=== PATIENT | female | born 1970 | race Caucasian/White ===

== ENCOUNTER 2016-12-03 19:08 | Emergency (ER) | payer SELFPAY ==
--- NOTE | 2016-12-03 20:25 | NUR ---
PATIENT LEFT WITHOUT BEING SEEN BY DR. Molina. NO FURTHER CARE PROVIDED FOR PATIENT. Called pt and no answer. Checked bathroom and surrounding ER areas outside and no sign of her.
== END 2016-12-03 20:25 | disposition left against medical advice (07) ==
LOC: MED 19:08
DX: M79.602 Pain in left arm (principal); Z53.21 Procedure and treatment not carried out due to patient leaving prior to being seen by health care provider

== ENCOUNTER 2018-10-27 00:32 | Emergency (ER) | payer BC, MEDICAID ==
[~2018-10-27] VITALS: Ht 162.6 cm; Wt 102.2 kg
[2018-10-27 00:37] VITALS: BP 149/95
--- NOTE | 2018-10-27 00:50 | NUR ---
Patient being evaluated by physician at bedside.
--- NOTE | 2018-10-27 00:51 | NUR ---
PT PRESENTS TO ED WITH C/O RLQ PAIN X 2 DAYS WITH N/V. ABD IS SOFT, NON TENDER. BOWEL SOUNDS HEARD TO ALL QUADRANTS. NO S/S OF DISTRESS AT THIS TIME. PT PLACED INTO BED, PENDING MD SHAH. PMH--ANXIETY, KIDNEY TRANSPLANT RX--NORCO, ATIVAN, "ANTI ANXIETY MEDS"
[2018-10-27] MEDS ORDERED: NACL 0.9% 1,000 ML IV SCH (00:54)
[2018-10-27] MEDS ORDERED: FAMOTIDINE 20 MG/2 ML VIAL IVP ONE (00:55)
[2018-10-27] MEDS ORDERED: MORPHINE SULFATE 4 MG/ML SYR IVP ONE (00:55)
[2018-10-27] MEDS ORDERED: ONDANSETRON 4 MG/2 ML VIAL IVP ONE (00:55)
[2018-10-27 01:26] LABS: BASOPHILS % (AUTO) 0.5 % (0.0-2.0); EOSINOPHILS % (AUTO) 0.5 % (0.0-4.0); HEMATOCRIT 39.8 % (36-48); HEMOGLOBIN 12.8 g/dL (12.0-16.0); LYMPHOCYTES # (AUTO) 1.2 K/uL (2.5-16.5); LYMPHOCYTES % (AUTO) 12.4 % (20.5-51.1); MEAN CORPUSCULAR HEMOGLOBIN 29 pg (27-31); MEAN CORPUSCULAR HGB CONC 32 g/dL (33-37); MEAN CORPUSCULAR VOLUME 88.8 fL (80-94); MONOCYTES # (AUTO) 0.8 K/uL (0.8-1.0); MONOCYTES % (AUTO) 8.8 % (1.7-9.3); NEUTROPHILS # (AUTO) 7.2 K/uL (1.8-7.7); NEUTROPHILS % (AUTO) 77.8 % (42.2-75.2); PLATELET COUNT (AUTO) 228 K/uL (140-450); RED BLOOD CELL COUNT(AUTO) 4.48 MIL/uL (4.20-5.40); RED CELL DISTRIBUTION WIDTH 14.2 % (11.6-13.7); WHITE BLOOD COUNT (AUTO) 9.3 K/uL (4.8-10.8)
[2018-10-27 01:31] LABS: APPEARANCE,URINE CLEAR (CLEAR); BILIRUBIN,URINE NEGATIVE (NEGATIVE); BLOOD, URINE NEGATIVE (NEGATIVE); COLOR,URINE YELLOW (YELLOW); LEUKOCYTE ESTERASE ,URINE NEGATIVE (NEGATIVE); NITRITE, URINE NEGATIVE (NEGATIVE); UGLUCOSE NEGATIVE (NEGATIVE)
[2018-10-27 01:39] LABS: ANION GAP 14.1 (8-16); CARBON DIOXIDE 24.4 mmol/L (21-32); CREATININE 0.9 mg/dL (0.6-1.3); POTASSIUM 4.5 mmol/L (3.5-5.1)
[2018-10-27 01:45] LABS: ALBUMIN 3.5 g/dL (3.4-5.0); TOTAL BILIRUBIN 0.3 mg/dL (0.0-1.0)
--- NOTE | 2018-10-27 02:31 | NUR ---
Patient discharged with v/s stable. Written and verbal after care instructions given and explained. Patient alert, oriented and verbalized understanding of instructions. Ambulatory with steady gait. All questions addressed prior to discharge. ID band removed. Patient advised to follow up with PMD. Rx of PEPCIP, ZOFRAN, BENTYL,FLAGYL,CIPRO,LOMOTIL given. Patient educated on indication of medication including possible reaction and side effects. Opportunity to ask questions provided and answered.
[2018-10-27 02:32] VITALS: BP 141/88
== END 2018-10-27 02:32 | disposition home or self-care (01) ==
LOC: MED 00:32
DX: R10.33 Periumbilical pain (principal); R11.2 Nausea with vomiting, unspecified; R19.7 Diarrhea, unspecified; I10 Essential (primary) hypertension; Z90.49 Acquired absence of other specified parts of digestive tract; Z90.710 Acquired absence of both cervix and uterus
CPT/HCPCS: 36415; 74176; 80053; 81003; 81025; 83690; 84703; 85025; 96361; 96374; 96375; 99284; J2270; J2405; J3490; J7030

== ENCOUNTER 2019-02-17 02:23 | Inpatient (IN) | payer BC, MEDICAID ==
[~2019-02-17] VITALS: Ht 162.6 cm; Wt 103.4 kg
[~2019-02-17 02:23] MED LIST: CEL250 PO; PRO.5 PO
[2019-02-17 02:34] VITALS: BP 121/89
[2019-02-17] MEDS ORDERED: OMEP20TC12 PO (02:38)
[2019-02-17] MEDS ORDERED: PRED5TAB7 PO (02:38)
[2019-02-17] MEDS ORDERED: HYDR-5092 PO (02:41)
--- NOTE | 2019-02-17 02:43 | NUR ---
TO ER BED 7
--- NOTE | 2019-02-17 02:45 | NUR ---
PT BIB SELF C/O ABD PAIN X 1 WEEK. PT STATES PAIN IS PROGRESSIVELY GETTING WORSE. PT STATES SHE HAS ACID REFLUX. SHARP 8/10 PAIN, TO UPPER QUAD, +TENDERNESS. PT STATES ENDOSCOPY DONE ON THURSDAY 02/15. BOWEL SOUND ACTIVE X4 QUAD. PT ACTING APPROPRIATLY. SKIN WARM, DRY AND INTACT. PT PLACED IN GOWN, IN BED; BED IN LOWER LOCKED POSITION. ER MD AWARE OF PT STATUS. WILL CONTINUE TO MONITOR. MED HX: KIDNEY TRANSPLANT MAY 2017/GASTRIC UPSET/ANXIETY
[2019-02-17] MEDS ORDERED: DICYCLOMINE HCL LIQUID 20 MG, ALUMINUM HYD/MAG/SIMETHICONE 30 ML, LIDOCAINE VISCOUS 2% ... PO ONE ×3 (03:20)
[2019-02-17] MEDS ORDERED: KETOROLAC 30 MG/ML VIAL IM ONE (04:05)
--- NOTE | 2019-02-17 04:05 | NUR ---
PT STATES 8/10 ABD PAIN AT THIS TIME, ER MD MADE AWARE. WILL FOLLOW UP WITH ORDERS.
[2019-02-17] MEDS ORDERED: KETOROLAC 60 MG/2 ML VIAL IM ONE (04:21)
--- NOTE | 2019-02-17 04:30 | NUR ---
PT TO CT VIA WHEELCHAIR BY TECH. GRISELDA
--- NOTE | 2019-02-17 05:21 | NUR ---
EKG PERFORMED AT BEDSIDE. PT COVERED IN GOWN DURING PROCEDURE
[2019-02-17] MEDS ORDERED: MORPHINE SULFATE 4 MG/ML SYR IM ONE (05:50)
[2019-02-17] MEDS ORDERED: LORazepam 2 MG/ML VIAL IVP ONE (06:00)
--- NOTE | 2019-02-17 06:00 | NUR ---
PT STATES PAIN HAS INCREASED, STATES 10/10 UPPER MEDIAL PAIN AT THIS TIME. ER MD AT BEDSIDE. WILL FOLLOW UP W/ MD ORDERS.
--- NOTE | 2019-02-17 06:05 | NUR ---
IV START: L HAND 24G, FLUSHED WELL W/O RESISTANCE. NO REDNESS OR SWELLING NOTED, TRANSPARENT DRESSING APPLIED. PT TOLERATED WELL.
--- NOTE | 2019-02-17 06:30 | NUR ---
PT AMBULATED W/ STEADY GATE AT THIS TIME.
--- NOTE | 2019-02-17 06:34 | NUR ---
CHECKED ON PT IN BR, PT STATES SHE IS OK AND DOES NEED ASSISTANCE AT THIS TIME.
--- NOTE | 2019-02-17 06:38 | NUR ---
PT BACK IN BED, SAFETY PRECAUTIONS IN PLACE. PT PLACED ON BUSINESS DEVELOPMENT DIRECTOR.
[2019-02-17] MEDS ORDERED: ACETAMINOPHEN 325 MG TAB PO PRN (07:00)
[2019-02-17] MEDS ORDERED: LORA-476 PO (07:03)
[2019-02-17] MEDS ORDERED: AMLO5TAB PO (07:03)
--- NOTE | 2019-02-17 07:15 | NUR ---
Pt report given to RICARDO Read, VSS, patient acting appropriatly. Transfer of care at this time.
--- NOTE | 2019-02-17 07:20 | NUR ---
Patient will be admitted to care of Dr. Fritz. Admited to Med surg unit. Pt. transferred to the room 126B on stable condition. Belongings list completed. Belongings with pt. Report to RN Flako.
[2019-02-17 07:30] VITALS: BP 106/69
--- NOTE | 2019-02-17 07:30 | NUR ---
Admitted from ED , with chief complaint of ABDOMINAL PAIN X 2 WEEKS. PT AAOX4, NO SOB NOTED. NO C/O PAIN AT THIS TIME. IV TO LT HAND PATENT AND INTACT. CHEST CLEAR. ABDOMEN SOFT, BOWEL SOUNDS PRESENT. NO EDEMA NOTED, INSTRUCTED PT TO CALL FOR ASSISTANCE, CALL LIGHT WITHIN REACH, PT VERBALIZED UNDERSTANDING. PT IS a 48 y/o ,Female, Cooperative, oriented to call light, bed, phone,television, bathroom, smoking policy,visiting hours, procedures, ID bracelet on. Belongings list checked.
[2019-02-17 07:33] LABS: PROTHROMBIN TIME 9.6 secs (10.8-13.4)
[2019-02-17 07:47] LABS: CHOL/HDL RATIO 2.5 (1-4.5); FREE T4 (FREE THYROXINE) 0.93 ng/dL (0.76-1.46); MAGNESIUM 1.5 mg/dL (1.8-2.4); PHOSPHORUS 3.6 mg/dL (2.5-4.9); THYROID STIMULATING HORMONE 5.6 uIU/mL (0.34-3.74)
--- NOTE | 2019-02-17 08:00 | NUR ---
MRSA NARES SWABS AND URINE SPECIMEN COLLECTED AND SENT TO LAB ORDERED.
[2019-02-17 08:11] LABS: BARBITURATE, URINE NEG. ng/ml (NEG <=200); BENZODIAZEPINE, URINE POS. ng/mL (NEG <=200); CANNABINOID, URINE NEG. ng/mL (NEG <=50); COCAINE, URINE NEG. ng/mL (NEG <=300); OPIATE, URINE POS. ng/mL (NEG <=2000); PHENCYCLIDINE SCREEN,URINE NEG. ng/mL (NEG <=25)
[2019-02-17 08:30] LABS: BASOPHILS % (AUTO) 0.1 % (0.0-2.0); EOSINOPHILS # (AUTO) 0.1 K/uL (0-0.4); EOSINOPHILS % (AUTO) 1.2 % (0.0-4.0); HEMATOCRIT 37.8 % (36-48); HEMOGLOBIN 12.3 g/dL (12.0-16.0); LYMPHOCYTES # (AUTO) 1.3 K/uL (2.5-16.5); LYMPHOCYTES % (AUTO) 16.7 % (20.5-51.1); MEAN CORPUSCULAR HEMOGLOBIN 30 pg (27-31); MEAN CORPUSCULAR HGB CONC 33 g/dL (33-37); MEAN CORPUSCULAR VOLUME 90.9 fL (80-94); MONOCYTES # (AUTO) 0.8 K/uL (0.8-1.0); MONOCYTES % (AUTO) 10.8 % (1.7-9.3); NEUTROPHILS # (AUTO) 5.4 K/uL (1.8-7.7); NEUTROPHILS % (AUTO) 71.2 % (42.2-75.2); PLATELET COUNT (AUTO) 220 K/uL (140-450); RED BLOOD CELL COUNT(AUTO) 4.16 MIL/uL (4.20-5.40); RED CELL DISTRIBUTION WIDTH 14.9 % (11.6-13.7); WHITE BLOOD COUNT (AUTO) 7.5 K/uL (4.8-10.8)
[2019-02-17] MEDS: ONDANSETRON 4 MG/2 ML VIAL IVP PRN (08:32)
[2019-02-17] MEDS ORDERED: DICYCLOMINE HCL LIQUID 10 MG/5 ML UDC PO SCH (09:00)
[2019-02-17] MEDS: DOCUSATE SODIUM 100 MG GELCAP PO SCH ×2 (09:00→20:53)
[2019-02-17] MEDS: amLODIPine 5 MG TAB PO SCH (09:00)
[2019-02-17] MEDS: MYCOPHENOLATE 250 MG CAP PO SCH ×2 (09:00→20:50)
[2019-02-17] MEDS ORDERED: LIDOCAINE VISCOUS 2% 20 ML UDC PO SCH (09:00)
[2019-02-17] MEDS ORDERED: ALUMINUM HYD/MAG/SIMETHICONE 30 ML UDC PO SCH (09:00)
[2019-02-17 09:09] LABS: ANION GAP 15.7 (8-16); CARBON DIOXIDE 21.7 mmol/L (21-32); CREATININE 0.8 mg/dL (0.6-1.3); POTASSIUM 3.4 mmol/L (3.5-5.1); TOTAL BILIRUBIN 0.2 mg/dL (0.0-1.0)
[2019-02-17] MEDS: predniSONE 5 MG TAB PO SCH (09:09)
[2019-02-17 09:10] LABS: ALBUMIN 3.3 g/dL (3.4-5.0)
[2019-02-17] MEDS: LORazepam 1 MG TAB PO PRN ×3 (09:10→20:50)
[2019-02-17] MEDS ORDERED: TACROLIMUS 0.5 MG CAP PO SCH ×2 (10:00)
[2019-02-17] MEDS: MORPHINE SULFATE 2 MG/ML SYR IVP PRN ×2 (10:02→16:54)
--- NOTE | 2019-02-17 10:08 | NUR ---
CELLCEPT AND PROGRAF PO NOT GIVEN, PT STATED HER DAUGHTER BROUGHT HER DOSE THIS MORNING AND SHE ALRAEDY TOOK IT. INSTRUCTED PT NOT TAKE HER OWN STOCK OF HOME MEDS WHILE SHE IS IN THE HOSPITAL WITHOUT ADVISING HER NURSE, THE NURSE WILL BE THE ONE TO ADMINISTER TO PT. PT VERBALIZED UNDERSTANDING.
--- NOTE | 2019-02-17 10:20 | NUR ---
SPOKE WITH PT'S DAUGHTER REGARDING PT'S HOME MEDS, STATED SHE WILL ALL THE HOME MEDS HOME, VERBALIZED UNDERSTANDING.
--- NOTE | 2019-02-17 11:00 | NUR ---
PT SEEN BY DR. SOSA FOR DR. PANTOJA.
[2019-02-17] MEDS: DEXT 5% /NACL 0.9% 1,000 ML IV SCH ×2 (12:52→21:55)
[2019-02-17] MEDS ORDERED: MAG SULF 2000 MG/WATER PREMIX 50 ML IV SCH (13:00)
--- NOTE | 2019-02-17 13:18 | NUR ---
PT SIGNED FOR DISCLOSURE OF MEDICAL RECORDS. SPOKE WITH SHRUTHI FROM DR. [facility] STATED THAT THEY DON'T HAVE A FAX MACHINE BUT THE REQUESTING DOCTOR CAN EMAIL THEM AT [email or web address]. WILL NOTIFY DR. FERNANDEZ'S RESIDENT IN CHARGE OF PT.
--- NOTE | 2019-02-17 13:31 | NUR ---
PATIENT HAS BEEN SCREENED AND CATEGORIZED MODERATE NUTRITION RISK. PATIENT WILL BE SEEN WITHIN 3-5 DAYS OF ADMISSION. 02/19/19LOLI [address]
[2019-02-17] MEDS ORDERED: POTASSIUM CHLORIDE 40 MEQ, LIDOCAINE MPF 1% - 5 mL VIAL 25 MG in NACL 0.9% 250 ML IV SCH (15:00)
--- NOTE | 2019-02-17 15:30 | NUR ---
PT RESTING. NO SOB NOTED. NO SIGNS OF PAIN.
[2019-02-17] MEDS ORDERED: ZOLPIDEM 5 MG TAB PO PRN (15:50)
[2019-02-17 16:00] VITALS: BP 132/84
[2019-02-17] MEDS ORDERED: PANTOPRAZOLE 40 MG INJ VIAL IVP SCH (16:00)
[2019-02-17] MEDS ORDERED: METOCLOPRAMIDE 10 MG/2 ML INJ VIAL IVP SCH (16:15)
--- NOTE | 2019-02-17 18:05 | NUR ---
PT STARTING ON FULL LIQUIDS, NO N&V NOTED. WILL CONTINUE TO MONITOR.
--- NOTE | 2019-02-17 18:31 | NUR ---
PT SEEN BY DR. Janent MONTGOMERY WITH NEW ORDERS.
--- NOTE | 2019-02-17 19:10 | NUR ---
PT AWAKE, TALKING TO AT THE BEDSIDE. NO SOB NOTED. NO C/O PAIN AT THIS TIME. ENDORSED TO NEXT SHIFT NURSE FOR CONTINUITY OF CARE.
--- NOTE | 2019-02-17 19:15 | NUR ---
RECEIVED PT ON BED, AAOX4, DENIES ANY PAIN BUT COMPLAINING OF ITCHINESS TO ARMS, SHOULDERS AND BACK, NO RASHES OR REDNESS NOTED, WILL PAGED RESIDENT ON DUTY, VITAL SIGNS STABLE, K-RIDER IVPB INFUSING WELL, TOLERATING FULL LIQUID DIET, PLAN OF CARE DISCUSSED, SAFETY MEASURES IN PLACE, CALL LIGHT WITHIN REACH.
[2019-02-17] MEDS: HYOSCYAMINE 0.125 MG TAB PO SCH (19:47)
[2019-02-17] MEDS: hydrOXYzine HCL 25 MG TAB PO PRN (19:47)
--- NOTE | 2019-02-17 19:50 | NUR ---
MEDICATED PRN FOR ITCHINESS WITH ATARAX PO, INSTRUCTED PT TO COLLECT LOOSE STOOL FOR C-DIFF, CONTAINER IN THE TOILET, VERBALIZED UNDERSTANDING, ALL NEEDS ATTENDED.
[2019-02-17] MEDS: SUCRALFATE 1 GM TAB PO SCH (20:49)
[2019-02-17] MEDS: AMITRIPTYLINE 25 MG TAB PO SCH (20:50)
--- NOTE | 2019-02-17 20:50 | NUR ---
DUE PO MEDS ADMINISTERED, REFUSED DUE COLACE, RISK AND BENEFITS EXPLAINED BUT PT STILL REFUSING WELL, FOR DAYO GROSS, MONITORED CLOSELY.
--- NOTE | 2019-02-17 22:20 | NUR ---
ROUNDS MADE, SEEN PT SLEEPING, NO SIGNS OF DISTRESS, IVF INFUSING WELL, MONITORED CLOSELY.
[2019-02-18 00:20] VITALS: BP 111/72
--- NOTE | 2019-02-18 00:20 | NUR ---
PT SLEEPING, EASILY AROUSABLE, VITAL SIGNS STABLE, IVF INFUSING WELL, PT WENT BACK TO SLEEP, CONTINUE TO MONITOR CLOSELY.
[2019-02-18] MEDS: MORPHINE SULFATE 2 MG/ML SYR IVP PRN ×2 (03:26→09:10)
[2019-02-18] MEDS: HYOSCYAMINE 0.125 MG TAB PO SCH ×7 (03:26→23:41)
--- NOTE | 2019-02-18 03:30 | NUR ---
PT COMPLAINING OF PAIN, BP-114/66, HR-64, MEDICATED WITH MORPHINE IVP AND DUE LEVSIN PO ADMINISTERED, MONITORED CLOSELY.
[2019-02-18] MEDS: DEXT 5% /NACL 0.9% 1,000 ML IV SCH (04:31)
--- NOTE | 2019-02-18 05:45 | NUR ---
PT SLEEPING, NO SIGNS OF PAIN, IVF INFUSING WELL, MONITORED CLOSELY.
[2019-02-18] MEDS ORDERED: PANTOPRAZOLE 40 MG TABEC PO SCH (06:30)
[2019-02-18 06:47] LABS: BASOPHILS % (AUTO) 0.3 % (0.0-2.0); EOSINOPHILS # (AUTO) 0.1 K/uL (0-0.4); EOSINOPHILS % (AUTO) 1.3 % (0.0-4.0); HEMATOCRIT 37.2 % (36-48); HEMOGLOBIN 12.2 g/dL (12.0-16.0); LYMPHOCYTES % (AUTO) 14.1 % (20.5-51.1); MEAN CORPUSCULAR HEMOGLOBIN 30 pg (27-31); MEAN CORPUSCULAR HGB CONC 33 g/dL (33-37); MEAN CORPUSCULAR VOLUME 91.1 fL (80-94); MONOCYTES # (AUTO) 0.6 K/uL (0.8-1.0); MONOCYTES % (AUTO) 9.2 % (1.7-9.3); NEUTROPHILS # (AUTO) 5.3 K/uL (1.8-7.7); NEUTROPHILS % (AUTO) 75.1 % (42.2-75.2); PLATELET COUNT (AUTO) 218 K/uL (140-450); RED BLOOD CELL COUNT(AUTO) 4.09 MIL/uL (4.20-5.40); RED CELL DISTRIBUTION WIDTH 15.1 % (11.6-13.7)
--- NOTE | 2019-02-18 07:15 | NUR ---
PT SLEEPING, NO SIGNS OF DISTRESS, REPORT GIVEN TO RN PHOENIX FOR CONTINUITY OF CARE.
[2019-02-18 07:16] LABS: CARBON DIOXIDE 26.1 mmol/L (21-32); CREATININE 0.7 mg/dL (0.6-1.3); POTASSIUM 4.1 mmol/L (3.5-5.1)
--- NOTE | 2019-02-18 07:30 | NUR ---
RECEIVED PT AAOX4. NO SOB NOTED. NO C/O PAIN AT THIS TIME. IV TO RT AND LT HAND PATENT AND INTACT. CHEST, DIMINISHED AIR ENTRY TO THE BASES. ABDOMEN SOFT, BOWEL SOUNDS PRESENT. NO EDEMA NOTED. INSTRUCTED PT TO CALL FOR ASSISTANCE, CALL LIGHT WITHIN REACH, VERBALIZED UNDERSTANDING.
[2019-02-18 07:35] LABS: MAGNESIUM 1.8 mg/dL (1.8-2.4); PHOSPHORUS 3.2 mg/dL (2.5-4.9)
[2019-02-18 07:55] VITALS: BP 104/67
[2019-02-18] MEDS: amLODIPine 5 MG TAB PO SCH (09:00)
[2019-02-18] MEDS: ONDANSETRON 4 MG/2 ML VIAL IVP PRN (09:04)
[2019-02-18] MEDS: PANTOPRAZOLE 40 MG INJ VIAL IVP SCH (09:06)
[2019-02-18] MEDS: predniSONE 5 MG TAB PO SCH (09:12)
[2019-02-18] MEDS: LORazepam 1 MG TAB PO PRN ×3 (09:12→20:17)
[2019-02-18] MEDS: SUCRALFATE 1 GM TAB PO SCH ×2 (09:13→20:16)
[2019-02-18] MEDS: DOCUSATE SODIUM 100 MG GELCAP PO SCH ×2 (09:13→20:16)
[2019-02-18] MEDS: MYCOPHENOLATE 250 MG CAP PO SCH ×2 (09:13→20:16)
[2019-02-18] MEDS: TACROLIMUS 0.5 MG CAP PO SCH (09:13)
[2019-02-18] MEDS: hydrOXYzine HCL 25 MG TAB PO PRN ×2 (09:24→21:38)
--- NOTE | 2019-02-18 10:10 | NUR ---
PT AWAKE, ON THE PHONE. NO SOB NOTED. NO COMPLAINTS MADE.
[2019-02-18] MEDS ORDERED: MAGNESIUM HYDROXIDE 2400 MG/30 ML UDC PO SCH (12:01)
--- NOTE | 2019-02-18 12:30 | NUR ---
PT TOLERATED FULL LIQUIDS FOR BREAKFAST AND LUNCH. NO N&V NOTED.
[2019-02-18] MEDS: HYDROcodone/APAP 7.5/325 MG 1 TAB PO PRN ×2 (14:15→20:06)
--- NOTE | 2019-02-18 15:05 | NUR ---
PT RESTING. NO SOB NOTED. NO COMPLAINTS MADE.
[2019-02-18 16:00] VITALS: BP 127/82
[2019-02-18] MEDS ORDERED: KETOROLAC 30 MG/ML VIAL IVP SCH (16:00)
--- NOTE | 2019-02-18 19:10 | NUR ---
PT AWAKE, TALKING TO FAMILY AT THE BEDSIDE. NO COMPLAINTS MADE. ENDORSED TO NEXT SHIFT NURSE FOR CONTINUITY OF CARE.
--- NOTE | 2019-02-18 19:11 | NUR ---
RECEIVED REPORT FROM DAY SHIFT NURSE PHOENIX-RN AT BEDSIDE. PT RESTING IN BED, AOX4, ON ROOM AIR WITH LEFT HAND #[id number] AND RIGHT HAND #22G-SL. DISCUSSED PLAN OF CARE AND PT VERBALIZED UNDERSTANDING. NO S/S OF RESPIRATORY DISTRESS OR DISCOMFORT NOTED AT THIS TIME. BED IN LOWEST POSITION, BED BREAKS ON AND BOTH SIDE RAILS UP. BEDSIDE TABLE AND CALL LIGHT ARE WITHIN REACH. WILL CONTINUE TO MONITOR.
--- NOTE | 2019-02-18 19:30 | NUR ---
PT TOLERATED FULL LIQUIDS FOR BREAKFAST AND LUNCH. NO N&V NOTED. Addendum: 02/18/19 at 4 by Fernanda Rowell RN DISREGARD ABOVE NOTES, WRONG ENTRY.
--- NOTE | 2019-02-18 19:56 | NUR ---
SCHEDULED MEDICATION LEVSIN GIVEN AND TOLERATED WELL. PT C/O PAIN 04/14- OFFERED NORCO HOWEVER PT REFUSING MEDICATION REQUESTING MORPHINE. EDUCATED PT ON LEVSIN HOWEVER PT CONTINUES TO REQUEST MORPHINE. WILL SPEAK TO DR. VOLODYMYR MATA. NO S/S OF RESPIRATORY DISTRESS OR DISCOMFORT NOTED AT THIS TIME. WILL CONTINUE TO MONITOR.
[2019-02-18 20:00] VITALS: BP 106/71
--- NOTE | 2019-02-18 20:00 | NUR ---
VITAL SIGNS TAKEN AND TOLERATED WELL. PT C/O PAIN 04/14 REQUESTING MORPHINE. SPOKE TO DR. VOLODYMYR MATA AND HE SAID HE WOULD COME IN TO SPEAK TO PT. NO S/S OF RESPIRATORY DISTRESS OR DISCOMFORT NOTED AT THIS TIME. WILL CONTINUE TO MONITOR.
--- NOTE | 2019-02-18 20:06 | NUR ---
DR. VOLODYMYR MATA EDUCATED PT ON MORPHINE AND SUGGESTED PT USE NORCO FOR PAIN. NORCO GIVEN AND TOLERATED WELL. NO S/S OF RESPIRATORY DISTRESS OR DISCOMFORT NOTED AT THIS TIME. WILL CONTINUE TO MONITOR.
[2019-02-18] MEDS: AMITRIPTYLINE 25 MG TAB PO SCH (20:16)
--- NOTE | 2019-02-18 20:17 | NUR ---
SCHEDULED MEDICATIONS GIVEN AND TOLERATED WELL. PT REQUESTING ATIVAN FOR ANXIETY AND AMBIEN FOR INSOMNIA. ATIVAN AND AMBIEN GIVEN AND TOLERATED WELL. NO S/S OF RESPIRATORY DISTRESS OR DISCOMFORT NOTED AT THIS TIME. WILL CONTINUE TO MONITOR.
--- NOTE | 2019-02-18 21:38 | NUR ---
PT C/O ITCHINESS. ATARAX HCL GIVEN AND TOLERATED WELL. NO S/S OF RESPIRATORY DISTRESS OR DISCOMFORT NOTED AT THIS TIME. WILL CONTINUE TO MONITOR.
--- NOTE | 2019-02-18 23:41 | NUR ---
SCHEDULED MEDICATION LEVSIN GIVEN AND TOLERATED WELL. NO S/S OF RESPIRATORY DISTRESS OR DISCOMFORT NOTED AT THIS TIME. WILL CONTINUE TO MONITOR.
[2019-02-19] VITALS: BP 110/79
--- NOTE | 2019-02-19 | NUR ---
VITAL SIGNS TAKEN AND TOLERATED WELL. PT C/O HEADACHE- WILL ADMINISTER TYLENOL FOR HEADACHE. NO S/S OF RESPIRATORY DISTRESS OR DISCOMFORT NOTED AT THIS TIME. WILL CONTINUE TO MONITOR.
--- NOTE | 2019-02-19 00:12 | NUR ---
TYLENOL GIVEN FOR HEADACHE. PT TOLERATED WELL. NO S/S OF RESPIRATORY DISTRESS OR DISCOMFORT NOTED AT THIS TIME. WILL CONTINUE TO MONITOR.
--- NOTE | 2019-02-19 02:00 | NUR ---
PT SLEEPING IN BED. NO S/S OF RESPIRATORY DISTRESS OR DISCOMFORT NOTED AT THIS TIME. WILL CONTINUE TO MONITOR.
[2019-02-19] MEDS: HYOSCYAMINE 0.125 MG TAB PO SCH ×3 (03:53→13:21)
--- NOTE | 2019-02-19 03:53 | NUR ---
SCHEDULED MEDICATION LEVSIN GIVEN AND TOLERATED WELL. NO S/S OF RESPIRATORY DISTRESS OR DISCOMFORT NOTED AT THIS TIME. WILL CONTINUE TO MONITOR.
--- NOTE | 2019-02-19 06:00 | NUR ---
PT CONTINUES TO SLEEP IN BED. NO S/S OF RESPIRATORY DISTRESS OR DISCOMFORT NOTED AT THIS TIME. WILL CONTINUE TO MONITOR.
--- NOTE | 2019-02-19 07:15 | NUR ---
ENDORSED PT CARE TO DAY SHIFT NURSE VON FOR CONTINUITY OF CARE.
[2019-02-19 08:00] VITALS: BP 106/71
[2019-02-19 08:42] LABS: BASOPHILS % (AUTO) 0.2 % (0.0-2.0); EOSINOPHILS # (AUTO) 0.1 K/uL (0-0.4); EOSINOPHILS % (AUTO) 1.4 % (0.0-4.0); HEMATOCRIT 39.4 % (36-48); HEMOGLOBIN 12.8 g/dL (12.0-16.0); LYMPHOCYTES # (AUTO) 1.1 K/uL (2.5-16.5); LYMPHOCYTES % (AUTO) 16.9 % (20.5-51.1); MEAN CORPUSCULAR HEMOGLOBIN 30 pg (27-31); MEAN CORPUSCULAR HGB CONC 33 g/dL (33-37); MEAN CORPUSCULAR VOLUME 91.5 fL (80-94); MONOCYTES # (AUTO) 0.8 K/uL (0.8-1.0); MONOCYTES % (AUTO) 11.9 % (1.7-9.3); NEUTROPHILS # (AUTO) 4.7 K/uL (1.8-7.7); NEUTROPHILS % (AUTO) 69.6 % (42.2-75.2); PLATELET COUNT (AUTO) 210 K/uL (140-450); RED BLOOD CELL COUNT(AUTO) 4.31 MIL/uL (4.20-5.40); RED CELL DISTRIBUTION WIDTH 15.3 % (11.6-13.7); WHITE BLOOD COUNT (AUTO) 6.7 K/uL (4.8-10.8)
[2019-02-19 08:50] LABS: ANION GAP 13.4 (8-16); CARBON DIOXIDE 24.6 mmol/L (21-32)
[2019-02-19 08:57] LABS: MAGNESIUM 1.8 mg/dL (1.8-2.4); PHOSPHORUS 3.9 mg/dL (2.5-4.9)
[2019-02-19] MEDS: amLODIPine 5 MG TAB PO SCH (09:00)
[2019-02-19] MEDS ORDERED: OMEP20TC PO (09:04)
[2019-02-19] MEDS ORDERED: HYOS-91 PO (09:04)
[2019-02-19] MEDS ORDERED: SUCR1TAB56 PO (09:04)
[2019-02-19] MEDS ORDERED: ELA25 PO (09:04)
[2019-02-19] MEDS: PANTOPRAZOLE 40 MG INJ VIAL IVP SCH (09:39)
[2019-02-19] MEDS: TACROLIMUS 0.5 MG CAP PO SCH (09:40)
[2019-02-19] MEDS: SUCRALFATE 1 GM TAB PO SCH (09:40)
[2019-02-19] MEDS: MYCOPHENOLATE 250 MG CAP PO SCH (09:41)
[2019-02-19] MEDS: DOCUSATE SODIUM 100 MG GELCAP PO SCH (09:41)
[2019-02-19] MEDS: predniSONE 5 MG TAB PO SCH (09:41)
--- NOTE | 2019-02-19 14:32 | NUR ---
PT DISCHARGED HOME FOR SELF CARE. PT TEACHING WAS GIVEN. PT NOTIFIED OF FOLLOW-UP APT. PT VERBALIZED UNDERSTANDING OF TEACHING. ALL DISCHARGE PAPERWORK WAS SIGNED. IV REMOVED WITH TIP INTACT. WRIST BAND REMOVED AND PLACED IN SHRED BIN. ALL PERSONAL BELONGINGS TAKEN WITH PT. PT LEFT IN STABLE CONDITION ACCOMPANIED BY .
[2019-02-20 06:21] LABS: TACROLIMUS 17.1 ng/mL (2.0-20.0)
== END 2019-02-19 14:52 | disposition home or self-care (01) | DRG 392 ==
LOC: MED 02:23 → MMU 07:01
PROVIDERS: ADMIT General Practice; ATTEND General Practice
DX: K29.70 Gastritis, unspecified, without bleeding (principal); E44.0 Moderate protein-calorie malnutrition; Z94.0 Kidney transplant status; K20.9 Esophagitis, unspecified; E87.6 Hypokalemia; E83.42 Hypomagnesemia; I10 Essential (primary) hypertension; E03.9 Hypothyroidism, unspecified; K58.0 Irritable bowel syndrome with diarrhea; F41.9 Anxiety disorder, unspecified; E66.9 Obesity, unspecified; Z68.39 Body mass index [BMI] 39.0-39.9, adult; Z79.899 Other long term (current) drug therapy; Z76.5 Malingerer [conscious simulation]
CPT/HCPCS: 36415; 74018; 80048; 80053; 80305; 82150; 83036; 83690; 83735; 83880; 84100; 84439; 84443; 84484; 85025; 85610; 85730; 87081; 93005; 96372; 96374; 99285; C9113; J1885; J2001; J2060; J2270; J2405; J2765; J3475; J3480; J7030; J7042; J7507; J7512; J7517; Q0092

== ENCOUNTER 2019-05-03 22:21 | Inpatient (IN) | payer BC, MEDICAID ==
[~2019-05-03] VITALS: Ht 162.6 cm; Wt 97.5 kg
[~2019-05-03 22:21] MED LIST changes: +AMLO5TAB PO; +ELA25 PO; +HYDR-5092 PO; +HYOS-91 PO; +LORA-476 PO; +OMEP20TC PO; +PRED5TAB7 PO; +SUCR1TAB56 PO
[2019-05-03 22:25] VITALS: BP 126/90
--- NOTE | 2019-05-03 22:27 | NUR ---
TO LOBBY A/W BED AMBULATORY
--- NOTE | 2019-05-03 22:49 | NUR ---
PT WALKED TO BED 09
--- NOTE | 2019-05-03 22:49 | NUR ---
48 Y/O FEMALE PRESENTS TO ED WITH C/O OF EPIGASTRIC PAIN RADIATING UP ESOPHAGUS WITH N/V/D X1 DAY. PT STATES WATERY STOOL. NO C/O CP. NO SOB/DYSPNEA. ABD SOFT/NON-TENDER. X4 QUADRANT BOWEL SOUNDS PRESENT. 8/10 EPIGASTRIC PAIN. ER MD AWARE. CONTINUE TO MONITOR.
[2019-05-03] MEDS ORDERED: NACL 0.9% 1,000 ML IV ONE (23:25)
[2019-05-03] MEDS ORDERED: ONDANSETRON 4 MG/2 ML VIAL IVP ONE (23:25)
[2019-05-03 23:59] LABS: HEMOGLOBIN 13.9 g/dL (12.0-16.0); MEAN CORPUSCULAR HEMOGLOBIN 30 pg (27-31); MEAN CORPUSCULAR HGB CONC 33 g/dL (33-37); MEAN CORPUSCULAR VOLUME 89.4 fL (80-94); PLATELET COUNT (AUTO) 233 K/uL (140-450); RED CELL DISTRIBUTION WIDTH 14.4 % (11.6-13.7); WHITE BLOOD COUNT (AUTO) 9.1 K/uL (4.8-10.8)
[2019-05-04 00:13] LABS: ANION GAP 16.3 (8-16); CARBON DIOXIDE 21.5 mmol/L (21-32); POTASSIUM 3.8 mmol/L (3.5-5.1)
[2019-05-04 00:25] LABS: ALBUMIN 3.7 g/dL (3.4-5.0); TOTAL BILIRUBIN 0.5 mg/dL (0.0-1.0)
[2019-05-04 00:27] LABS: LYMPHOCYTES % (MANUAL) 12 % (20-46); MONOCYTES % (MANUAL) 9 % (5-12)
[2019-05-04] MEDS ORDERED: MORPHINE SULFATE 4 MG/ML SYR IVP ONE (00:35)
--- NOTE | 2019-05-04 00:50 | NUR ---
PT GIVING URINE AT THIS TIME.
--- NOTE | 2019-05-04 01:00 | NUR ---
PT IN BED RESTING. PAIN REDUCED TO 4/10.
[2019-05-04 01:06] LABS: APPEARANCE,URINE CLEAR (CLEAR); BILIRUBIN,URINE NEGATIVE (NEGATIVE); BLOOD, URINE NEGATIVE (NEGATIVE); COLOR,URINE YELLOW (YELLOW); LEUKOCYTE ESTERASE ,URINE NEGATIVE (NEGATIVE); NITRITE, URINE NEGATIVE (NEGATIVE); PH,URINE 5.5 (5.0-9.0); UGLUCOSE NEGATIVE (NEGATIVE)
[2019-05-04] MEDS ORDERED: HYDROcodone/APAP 5/325 MG 1 TAB TAB PO PRN (01:15)
[2019-05-04] MEDS ORDERED: DOCUSATE SODIUM 100 MG GELCAP PO PRN (01:15)
[2019-05-04] MEDS ORDERED: ACETAMINOPHEN 325 MG TAB PO PRN (01:15)
--- NOTE | 2019-05-04 02:00 | NUR ---
PT IN BED RESTING WITH EYES OPEN. VSS. STATES NO NAUSEA BUT PAIN RETURNING. DR TOLBERT INFORMED. CONTINUE TO MONITOR.
[2019-05-04 02:34] LABS: MAGNESIUM 1.6 mg/dL (1.8-2.4); PHOSPHORUS 3.1 mg/dL (2.5-4.9)
[2019-05-04 02:38] LABS: BARBITURATE, URINE NEG. ng/ml (NEG <=200); BENZODIAZEPINE, URINE NEG. ng/mL (NEG <=200); CANNABINOID, URINE NEG. ng/mL (NEG <=50); COCAINE, URINE NEG. ng/mL (NEG <=300); OPIATE, URINE NEG. ng/mL (NEG <=2000); PHENCYCLIDINE SCREEN,URINE NEG. ng/mL (NEG <=25)
[2019-05-04 02:45] LABS: PROTHROMBIN TIME 10.2 secs (10.8-13.4)
--- NOTE | 2019-05-04 02:57 | NUR ---
REPORT GIVEN AND CARE TRANSFERED TO ZAC RN ROOM 114. TRANSFERED VIA [facility] WITH VSS.
--- NOTE | 2019-05-04 03:00 | NUR ---
ADMITTED THIS 48 YEAR OLD FEMALE FROM ER PER SILVIA WITH CC OF ABDOMINAL PAIN, N/V AND DIARRHEA, AMBULATED TO BED WITH STEADY GAIT, ASSESSMENT DONE, AAOX4, VITAL SIGNS STABLE, 06/14 AT THIS TIME, WILL MEDICATE PRN, DENIES N/V, ORIENTED TO ROOM AND CALL LIGHT, INSTRUCTED NPO EXCEPT MEDS, PLAN OF CARE DISCUSSED, SAFETY MEASURES IN PLACE, CALL LIGHT WITHIN REACH.
[2019-05-04] MEDS: LORazepam 2 MG/ML VIAL IM/IVP PRN ×3 (03:12→21:44)
[2019-05-04] MEDS: PANTOPRAZOLE 40 MG INJ VIAL IVP SCH ×2 (03:15→09:05)
--- NOTE | 2019-05-04 03:15 | NUR ---
PT REQUESTING ATIVAN FOR ANXIETY, PREFER TO HAVE ATIVAN THAN MORPHINE AT THIS TIME, MEDICATED PRN, FIRST DOSE OF PROTONIX ADMINISTERED IVP ORDERED WITH EDUCATION PROVIDED, IVF STARTED AT 80ML/H, ALL NEEDS ATTENDED.
[2019-05-04] MEDS: DEXT 5% /NACL 0.9% 1,000 ML IV SCH ×2 (03:17→13:25)
[2019-05-04 03:20] VITALS: BP 112/78
[2019-05-04] MEDS ORDERED: PANTOPRAZOLE 40 MG INJ VIAL ONE (03:20)
[2019-05-04] MEDS: MORPHINE SULFATE 2 MG/ML SYR IVP PRN ×3 (04:25→16:25)
--- NOTE | 2019-05-04 05:10 | NUR ---
PT SLEEPING, NO SIGNS OF DISTRESS, IVF INFUSING WELL, MONITORED CLOSELY.
[2019-05-04] MEDS ORDERED: PRO.5 PO (05:53)
[2019-05-04] MEDS ORDERED: CEL250 PO (05:53)
--- NOTE | 2019-05-04 06:58 | NUR ---
CHANGED DIET TO FULL LIQUID DIET, WATER AND CRANBERRY JUICE PROVIDED, TOLERATED WELL, MAG RIDER IV ADMINISTERED, NO DISTRESS AT THIS TIME, MONITORED CLOSELY.
[2019-05-04] MEDS ORDERED: MAG SULF 2000 MG/WATER PREMIX 50 ML IV SCH (07:00)
--- NOTE | 2019-05-04 07:18 | NUR ---
PT AWAKE, NO SIGNS OF DISTRESS, REPORT GIVEN TO RICARDO SORTO FOR CONTINUITY OF CARE.
[2019-05-04 08:00] VITALS: BP 115/71
[2019-05-04] MEDS: LORazepam 1 MG TAB PO SCH (08:56)
[2019-05-04] MEDS: amLODIPine 5 MG TAB PO SCH (08:56)
[2019-05-04] MEDS: TACROLIMUS 0.5 MG CAP PO SCH (08:56)
[2019-05-04] MEDS: predniSONE 5 MG TAB PO SCH (08:57)
[2019-05-04] MEDS: MYCOPHENOLATE 250 MG CAP PO SCH ×2 (08:57→20:45)
[2019-05-04] MEDS ORDERED: PANTOPRAZOLE 40 MG INJ VIAL IVP SCH (09:00)
[2019-05-04] MEDS: ONDANSETRON 4 MG/2 ML VIAL IM/IVP PRN ×2 (09:05→17:19)
[2019-05-04 12:00] VITALS: BP 109/73
[2019-05-04] MEDS: metroNIDAZOLE 500 MG/NS PREMIX 100 ML IV SCH ×2 (12:38→20:45)
--- NOTE | 2019-05-04 13:00 | NUR ---
RIGHT FOREARM IV INFILTRATED. NO BLOOD RETURN, PT COMPLAINED OF PAIN WHEN FLUSHING. STARTED NEW IV ON LEFT FOREARM 20G. GOOD BLOOD RETURN AND FLUSHES WELL. JOSSE GALARZA PER MD ORDER.
--- NOTE | 2019-05-04 13:22 | NUR ---
PT COMPLAINED OF ANXIETY. GAVE ATIVAN 1MG PER MD ORDER
--- NOTE | 2019-05-04 13:27 | NUR ---
PATIENT HAS BEEN SCREENED AND CATEGORIZED MODERATE NUTRITION RISK. PATIENT WILL BE SEEN WITHIN 3-5 DAYS OF ADMISSION. 05/07/1903/23JAMEE ELDRIDGE MBA, RD
--- NOTE | 2019-05-04 14:44 | NUR ---
COLLECTED STOOL CULTURE AND WBC STOOL. STOOL MINIMAL AMOUNT, SOFT AND FORMED. DID NOT COLLECT C.DIFF TOXIN SAMPLE
[2019-05-04 16:00] VITALS: BP 113/69
--- NOTE | 2019-05-04 17:05 | NUR ---
PT WENT FOR A CT ABDOMEN, NO CONTRAST. SALINE LOCK. PT MADE AWARE.
[2019-05-04] MEDS: HYOSCYAMINE 0.125 MG TAB PO SCH ×2 (17:16→23:32)
--- NOTE | 2019-05-04 19:16 | NUR ---
GAVE BEDSIDE REPORT TO FLOORING MECHANIC RICARDO GREEN. PT IN STABLE CONDITION
--- NOTE | 2019-05-04 19:17 | NUR ---
RECEIVED REPORT FROM DAY SHIFT NURSE MACARIO-RN AT BEDSIDE. PT RESTING IN BED, AOX4- TURKISH SPEAKING ON ROOM AIR WITH LEFT FA #24G RUNNING D5-NS0.9% @ 80ML/HR. DISCUSSED PLAN OF CARE AND PT VERBALIZED UNDERSTANDING. NO S/S OF RESPIRATORY DISTRESS OR DISCOMFORT NOTED AT THIS TIME. BRUISE ON LEFT KNEE NOTED. BED IN LOWEST POSITION, BED BREAKS ON, BOTH SIDE RAILS UP AND FALL PRECAUTIONS IN PLACE. BEDSIDE TABLE AND CALL LIGHT ARE WITHIN REACH. WILL CONTINUE TO MONITOR.
[2019-05-04 20:00] VITALS: BP 112/75
--- NOTE | 2019-05-04 20:00 | NUR ---
VITAL SIGNS TAKEN AND TOLERATED WELL. NO S/S OF RESPIRATORY DISTRESS OR DISCOMFORT NOTED AT THIS TIME. WILL CONTINUE TO MONITOR.
[2019-05-04] MEDS: AMITRIPTYLINE 25 MG TAB PO SCH (20:45)
--- NOTE | 2019-05-04 20:45 | NUR ---
SCHEDULED MEDICATIONS GIVEN AND TOLERATED WELL. PT ALSO C/O CONSTIPATION AND COLACE GIVEN AND TOLERATED WELL. NO S/S OF RESPIRATORY DISTRESS OR DISCOMFORT NOTED AT THIS TIME. WILL CONTINUE TO MONITOR.
--- NOTE | 2019-05-04 21:44 | NUR ---
PT C/O ANXIETY AND ATIVAN WAS GIVEN AND TOLERATED WELL. NO S/S OF RESPIRATORY DISTRESS OR DISCOMFORT NOTED AT THIS TIME. WILL CONTINUE TO MONITOR.
--- NOTE | 2019-05-04 23:32 | NUR ---
SCHEDULED MEDICATION LEVSIN GIVEN AND TOLERATED WELL. NO S/S OF RESPIRATORY DISTRESS OR DISCOMFORT NOTED AT THIS TIME. WILL CONTINUE TO MONITOR.
[2019-05-05] VITALS: BP 120/80
--- NOTE | 2019-05-05 | NUR ---
VITAL SIGNS TAKEN AND TOLERATED WELL. PT C/O STOMACH PAIN REQUESTING MORPHINE- WILL MEDICATE. NO S/S OF RESPIRATORY DISTRESS OR DISCOMFORT NOTED AT THIS TIME. WILL CONTINUE TO MONITOR.
--- NOTE | 2019-05-05 | NUR ---
VITAL SIGNS TAKEN AND TOLERATED WELL. NO S/S OF RESPIRATORY DISTRESS OR DISCOMFORT NOTED AT THIS TIME. WILL CONTINUE TO MONITOR.
[2019-05-05] MEDS: MORPHINE SULFATE 2 MG/ML SYR IVP PRN ×3 (00:02→18:04)
--- NOTE | 2019-05-05 00:02 | NUR ---
MORPHINE GIVEN FOR PAIN. PT TOLERATED WELL. NO S/S OF RESPIRATORY DISTRESS OR DISCOMFORT NOTED AT THIS TIME. WILL CONTINUE TO MONITOR.
--- NOTE | 2019-05-05 02:00 | NUR ---
PT CONTINUES SLEEPING. NO S/S OF RESPIRATORY DISTRESS OR DISCOMFORT NOTED AT THIS TIME. WILL CONTINUE TO MONITOR.
[2019-05-05] MEDS: DEXT 5% /NACL 0.9% 1,000 ML IV SCH ×2 (02:14→17:57)
--- NOTE | 2019-05-05 04:00 | NUR ---
PT SLEEPING AT THIS TIME. NO S/S OF RESPIRATORY DISTRESS OR DISCOMFORT NOTED AT THIS TIME. WILL CONTINUE TO MONITOR.
[2019-05-05] MEDS: metroNIDAZOLE 500 MG/NS PREMIX 100 ML IV SCH ×3 (04:41→20:22)
--- NOTE | 2019-05-05 04:41 | NUR ---
SCHEDULED MEDICATION FLAGYL GIVEN AND TOLERATED WELL. PT REQUESTING MORPHINE FOR PAIN 06/14- MEDICATED AND TOLERATED WELL. NO S/S OF RESPIRATORY DISTRESS OR DISCOMFORT NOTED AT THIS TIME. WILL CONTINUE TO MONITOR.
[2019-05-05] MEDS: HYOSCYAMINE 0.125 MG TAB PO SCH ×3 (06:05→18:04)
--- NOTE | 2019-05-05 06:05 | NUR ---
SCHEDULED MEDICATION LEVSIN GIVEN AND TOLERATED WELL. NO S/S OF RESPIRATORY DISTRESS OR DISCOMFORT NOTED AT THIS TIME. WILL CONTINUE TO MONITOR.
[2019-05-05 07:08] LABS: BASOPHILS % (AUTO) 0.2 % (0.0-2.0); EOSINOPHILS # (AUTO) 0.1 K/uL (0-0.4); EOSINOPHILS % (AUTO) 1.4 % (0.0-4.0); HEMATOCRIT 37.2 % (36-48); HEMOGLOBIN 12.3 g/dL (12.0-16.0); LYMPHOCYTES # (AUTO) 0.8 K/uL (2.5-16.5); LYMPHOCYTES % (AUTO) 15.9 % (20.5-51.1); MEAN CORPUSCULAR HEMOGLOBIN 30 pg (27-31); MEAN CORPUSCULAR HGB CONC 33 g/dL (33-37); MONOCYTES # (AUTO) 0.7 K/uL (0.8-1.0); MONOCYTES % (AUTO) 15.6 % (1.7-9.3); NEUTROPHILS # (AUTO) 3.2 K/uL (1.8-7.7); NEUTROPHILS % (AUTO) 66.9 % (42.2-75.2); PLATELET COUNT (AUTO) 185 K/uL (140-450); RED BLOOD CELL COUNT(AUTO) 4.13 MIL/uL (4.20-5.40); RED CELL DISTRIBUTION WIDTH 14.4 % (11.6-13.7); WHITE BLOOD COUNT (AUTO) 4.7 K/uL (4.8-10.8)
[2019-05-05 07:13] LABS: ANION GAP 13.3 (8-16); CARBON DIOXIDE 24.4 mmol/L (21-32); CREATININE 0.9 mg/dL (0.6-1.3); POTASSIUM 3.7 mmol/L (3.5-5.1)
[2019-05-05 07:22] LABS: MAGNESIUM 1.6 mg/dL (1.8-2.4); PHOSPHORUS 3.6 mg/dL (2.5-4.9)
--- NOTE | 2019-05-05 07:25 | NUR ---
OBTAINED BEDSIDE REPORT FROM LEASING REPRESENTATIVE NURSE, PT IS AWAKE AND ALERT, NO S/S OF ANY ACUTE DISTRESS OR SOB, PT ON ROOM AIR, SKIN INTACT. IV SITE IS ON THE L FA 24 G, INFUSING NS 80 ML/HR. FALL PRECAUTIONS ARE IN PLACE, HOWEVER PT IS AMBULATING STEADILY WITH STAND BY ASSIST. CALL LIGHT IS WITHIN REACH, WILL CONTINUE TO MONITOR PT.
[2019-05-05 08:00] VITALS: BP 125/78
[2019-05-05] MEDS: TACROLIMUS 0.5 MG CAP PO SCH (10:08)
[2019-05-05] MEDS: LORazepam 1 MG TAB PO SCH (10:09)
[2019-05-05] MEDS: MYCOPHENOLATE 250 MG CAP PO SCH ×2 (10:09→20:22)
[2019-05-05] MEDS: amLODIPine 5 MG TAB PO SCH (10:09)
[2019-05-05] MEDS: predniSONE 5 MG TAB PO SCH (10:09)
[2019-05-05] MEDS: PANTOPRAZOLE 40 MG INJ VIAL IVP SCH (10:09)
--- NOTE | 2019-05-05 10:15 | NUR ---
SCHEDULED AM MEDICATIONS ADMINISTERED, PT TOLERATED WELL.
[2019-05-05] MEDS ORDERED: MAG SULF 2000 MG/WATER PREMIX 50 ML IV SCH (11:00)
--- NOTE | 2019-05-05 13:27 | NUR ---
PT'S IV HAS INFILTRATED. WILL ATTEMPTS TO START A NEW IV.
--- NOTE | 2019-05-05 13:53 | NUR ---
NEW IV INSERTED L AC 24 G, PATENT AND INTACT. PT IS A HARD STICK, HER VEIN BLEW TWICE WHEN ATTEMPTING TO INSERT A 22 AND 20 G.
[2019-05-05] MEDS: LORazepam 2 MG/ML VIAL IM/IVP PRN ×2 (14:12→20:31)
[2019-05-05 16:00] VITALS: BP 114/78
--- NOTE | 2019-05-05 19:20 | NUR ---
PT ENDORSED TO BRICK CARRIER IN STABLE CONDITION.
--- NOTE | 2019-05-05 19:21 | NUR ---
RECEIVED REPORT FROM DAY SHIFT NURSE JER-RN AT BEDSIDE. PT RESTING IN BED, AOX4- TAJIK SPEAKING ON ROOM AIR WITH LEFT AC #24 RUNNING D5-NS0.9% @ 80ML/HR. DISCUSSED PLAN OF CARE AND PT VERBALIZED UNDERSTANDING. NO S/S OF RESPIRATORY DISTRESS OR DISCOMFORT NOTED AT THIS TIME. BRUISE ON LEFT KNEE NOTED. BED IN LOWEST POSITION, BED BREAKS ON, BOTH SIDE RAILS UP AND FALL PRECAUTIONS IN PLACE. BEDSIDE TABLE AND CALL LIGHT ARE WITHIN REACH. WILL CONTINUE TO MONITOR.
[2019-05-05 20:00] VITALS: BP 113/74
--- NOTE | 2019-05-05 20:00 | NUR ---
VITAL SIGNS TAKEN AND TOLERATED WELL. NO S/S OF RESPIRATORY DISTRESS OR DISCOMFORT NOTED AT THIS TIME. WILL CONTINUE TO MONITOR.
[2019-05-05] MEDS: AMITRIPTYLINE 25 MG TAB PO SCH (20:22)
--- NOTE | 2019-05-05 20:22 | NUR ---
SCHEDULED MEDICATIONS GIVEN AND TOLERATED WELL. NO S/S OF RESPIRATORY DISTRESS OR DISCOMFORT NOTED AT THIS TIME. WILL CONTINUE TO MONITOR.
--- NOTE | 2019-05-05 20:31 | NUR ---
PT C/O ANXIETY. ATIVAN GIVEN AND TOLERATED WELL. NO S/S OF RESPIRATORY DISTRESS OR DISCOMFORT NOTED AT THIS TIME. WILL CONTINUE TO MONITOR.
--- NOTE | 2019-05-05 22:00 | NUR ---
PT SLEEPING IN BED. NO S/S OF RESPIRATORY DISTRESS OR DISCOMFORT NOTED AT THIS TIME. WILL CONTINUE TO MONITOR.
[2019-05-06] VITALS: BP 104/69
[2019-05-06] MEDS: HYOSCYAMINE 0.125 MG TAB PO SCH ×3 (00:36→12:27)
[2019-05-06] MEDS: MORPHINE SULFATE 2 MG/ML SYR IVP PRN ×3 (00:36→13:55)
--- NOTE | 2019-05-06 00:36 | NUR ---
SCHEDULED MEDICATION LEVSIN GIVEN AND TOLERATED WELL. PT C/O PAIN 05/14 AND MEDICATED WITH MORPHINE. PT TOLERATED WELL. NO S/S OF RESPIRATORY DISTRESS OR DISCOMFORT NOTED AT THIS TIME. WILL CONTINUE TO MONITOR.
--- NOTE | 2019-05-06 02:00 | NUR ---
PT SLEEPING IN BED. NO S/S OF RESPIRATORY DISTRESS OR DISCOMFORT NOTED AT THIS TIME. WILL CONTINUE TO MONITOR.
--- NOTE | 2019-05-06 04:00 | NUR ---
PT CONTINUES TO SLEEP IN BED. NO S/S OF RESPIRATORY DISTRESS OR DISCOMFORT NOTED AT THIS TIME. WILL CONTINUE TO MONITOR.
[2019-05-06] MEDS: metroNIDAZOLE 500 MG/NS PREMIX 100 ML IV SCH ×2 (04:27→12:40)
--- NOTE | 2019-05-06 04:27 | NUR ---
SCHEDULED MEDICATION FLAGYL GIVEN AND TOLERATED WELL. NO S/S OF RESPIRATORY DISTRESS OR DISCOMFORT NOTED AT THIS TIME. WILL CONTINUE TO MONITOR.
--- NOTE | 2019-05-06 05:40 | NUR ---
SCHEDULED MEDICATION LEVSIN GIVEN AND TOLERATED WELL. NO S/S OF RESPIRATORY DISTRESS OR DISCOMFORT NOTED AT THIS TIME. WILL CONTINUE TO MONITOR.
[2019-05-06 06:58] LABS: BASOPHILS % (AUTO) 0.2 % (0.0-2.0); EOSINOPHILS # (AUTO) 0.1 K/uL (0-0.4); EOSINOPHILS % (AUTO) 1.6 % (0.0-4.0); HEMATOCRIT 38.1 % (36-48); HEMOGLOBIN 12.6 g/dL (12.0-16.0); LYMPHOCYTES % (AUTO) 18.8 % (20.5-51.1); MEAN CORPUSCULAR HEMOGLOBIN 30 pg (27-31); MEAN CORPUSCULAR HGB CONC 33 g/dL (33-37); MEAN CORPUSCULAR VOLUME 89.8 fL (80-94); MONOCYTES # (AUTO) 0.7 K/uL (0.8-1.0); MONOCYTES % (AUTO) 13.8 % (1.7-9.3); NEUTROPHILS # (AUTO) 3.5 K/uL (1.8-7.7); NEUTROPHILS % (AUTO) 65.6 % (42.2-75.2); PLATELET COUNT (AUTO) 199 K/uL (140-450); RED BLOOD CELL COUNT(AUTO) 4.25 MIL/uL (4.20-5.40); RED CELL DISTRIBUTION WIDTH 14.1 % (11.6-13.7); WHITE BLOOD COUNT (AUTO) 5.4 K/uL (4.8-10.8)
--- NOTE | 2019-05-06 07:10 | NUR ---
RECEIVED BEDSIDE REPORT FROM ROTARY SAW OPERATOR NURSE. PATIENT IS AWAKE, ALERT AND ORIENTEDX4. ANDORRAN SPEAKER. NO SIGNS OF DISTRESS ON RA. SKIN IS INTACT. PATIENT IS AMBULATORY. NO COMPLAINTS AT THIS TIME. CONTINENT. BED IN LOW POSITION. CALL LIGHT WITHIN REACH. PATIENT ABLE TO MAKE NEEDS KNOWN. WILL CONTINUE TO MONITOR
[2019-05-06 07:16] LABS: ANION GAP 12.8 (8-16); CREATININE 0.9 mg/dL (0.6-1.3); POTASSIUM 3.8 mmol/L (3.5-5.1)
[2019-05-06 07:39] LABS: MAGNESIUM 1.7 mg/dL (1.8-2.4); PHOSPHORUS 3.9 mg/dL (2.5-4.9)
[2019-05-06 08:00] VITALS: BP 113/65
[2019-05-06] MEDS: LORazepam 1 MG TAB PO SCH (08:12)
[2019-05-06] MEDS: predniSONE 5 MG TAB PO SCH (08:12)
[2019-05-06] MEDS: TACROLIMUS 0.5 MG CAP PO SCH (08:13)
[2019-05-06] MEDS: PANTOPRAZOLE 40 MG INJ VIAL IVP SCH (08:13)
[2019-05-06] MEDS: amLODIPine 5 MG TAB PO SCH (08:13)
[2019-05-06] MEDS: MYCOPHENOLATE 250 MG CAP PO SCH (08:13)
[2019-05-06] MEDS ORDERED: ELA25 PO (08:23)
[2019-05-06] MEDS ORDERED: MAGNESIUM OXIDE 400 MG TAB PO SCH (08:25)
[2019-05-06] MEDS ORDERED: PRO.5 PO (08:36)
--- NOTE | 2019-05-06 08:37 | NUR ---
ADMINISTERED EVAN MEDS AND PRN PAIN MED. PATIENT TOLERATED WELL. EDUCATED ON SIDE EFFECTS. PATIENT VERBALIZED UNDERSTANDING. WILL CONTINUE TO MONITOR THE PATIENT. CALL LIGHT WITHIN REACH
[2019-05-06] MEDS: DEXT 5% /NACL 0.9% 1,000 ML IV SCH (09:41)
--- NOTE | 2019-05-06 10:00 | NUR ---
PATIENT SHOWS NO SIGNS OF DISTRESS. WILL CONTINUE TO MONITOR
--- NOTE | 2019-05-06 11:09 | NUR ---
PATIENT HAS NO COMPLAINTS AT THIS TIME. WATCHING TV, WILL CONTINUE TO MONITOR
[2019-05-06] MEDS: LORazepam 2 MG/ML VIAL IM/IVP PRN (12:32)
--- NOTE | 2019-05-06 12:43 | NUR ---
ADMINISTERED MEDS. EDUCATED ON SIDE EFFECTS. PATIENT REQUESTING PRN ANXIETY MEDS. PATIENT VERBALIZED UNDERSTANDING. EDUCATED PATIENT ON DISEASE PROCESS, ABN S/SX, WHEN TO GO TO THE ER, EDUCATED ON FOLLOW UP W DR BALL, EDUCATED ON MEDS, MEDS SENT TO PHARMACY. PATIENT VERBALIZED UNDERSTANDING. PNA AND FLU VACCINES UP TO DATE. WILL REMOVE ID BANDS AND IV WHEN PATIENTS RIDE ARRIVES
--- NOTE | 2019-05-06 14:00 | NUR ---
ADMINISTERED PRN PAIN MEDS. EDUCATED ON SIDE EFFECTS. PATIENT TOLERATED WELL. WILL CONTINUE TO MONITOR
--- NOTE | 2019-05-06 15:43 | NUR ---
REMOVED IV, TIP INTACT. ID BANDS REMOVED. PATIENT LEFT IN STABLE CONDITION WITH
== END 2019-05-06 15:43 | disposition home or self-care (01) | DRG 392 ==
LOC: MED 22:21 → MTU 05-04 01:21
PROVIDERS: ADMIT General Practice; ATTEND General Practice
DX: K52.9 Noninfective gastroenteritis and colitis, unspecified (principal); Z94.0 Kidney transplant status; E86.0 Dehydration; E66.9 Obesity, unspecified; E83.42 Hypomagnesemia; F41.9 Anxiety disorder, unspecified; I10 Essential (primary) hypertension; M32.9 Systemic lupus erythematosus, unspecified; K21.9 Gastro-esophageal reflux disease without esophagitis; Z68.36 Body mass index [BMI] 36.0-36.9, adult; Z71.3 Dietary counseling and surveillance; Z99.2 Dependence on renal dialysis; Z90.49 Acquired absence of other specified parts of digestive tract; Z90.710 Acquired absence of both cervix and uterus
CPT/HCPCS: 36415; 71045; 80048; 80053; 80305; 81003; 82150; 83690; 83735; 84100; 85025; 85610; 85730; 87045; 87070; 87081; 89055; 96361; 96374; 96375; 99285; C9113; J2060; J2270; J2405; J3475; J3490; J7042; J7507; J7512; J7517; Q0092

== ENCOUNTER 2019-05-29 23:27 | Emergency (ER) | payer BC, MEDICAID ==
[~2019-05-29] VITALS: Ht 162.6 cm; Wt 98.0 kg
[~2019-05-29 23:27] MED LIST changes: -HYOS-91 PO; -SUCR1TAB56 PO
[2019-05-29 23:35] VITALS: BP 120/83
--- NOTE | 2019-05-29 23:37 | NUR ---
TO LOBBY A/W BED, AMBULATORY
--- NOTE | 2019-05-29 23:54 | NUR ---
EKG PERFORMED IN TRIAGE ROOM
--- NOTE | 2019-05-30 01:03 | NUR ---
PT AMBULATED TO BED 1
--- NOTE | 2019-05-30 01:05 | NUR ---
PATIENT PRESENTS TO ED WITH EPIGASTRIC PAIN, H/A, NECK PAIN, BACK PAIN, CHEST PAIN/PRESSURE, AND DIZZINESS FOR 2 DAYS. PATIENT STATES SHE HAS HAD SOME NAUSEA WELL; SKIN IS PINK/WARM/DRY; AAOX4 WITH EVEN AND STEADY GAIT; LUNGS CLEAR BL; HR EVEN AND REGULAR; PT DENIES ANY FEVER, SOB, OR COUGH AT THIS TIME; PATIENT STATES PAIN OF 7/10 AT THIS TIME; VSS; PATIENT POSITIONED FOR COMFORT; HOB ELEVATED; BEDRAILS UP X2; BED DOWN. ER MD MADE AWARE OF PT STATUS.
[2019-05-30] MEDS ORDERED: NACL 0.9% 500 ML IV ONE (01:21)
[2019-05-30] MEDS ORDERED: ONDANSETRON 4 MG/2 ML VIAL IVP ONE (01:25)
[2019-05-30] MEDS ORDERED: KETOROLAC 30 MG/ML VIAL IVP ONE (01:25)
[2019-05-30 01:39] LABS: BASOPHILS % (AUTO) 0.4 % (0.0-2.0); EOSINOPHILS # (AUTO) 0.1 K/uL (0-0.4); EOSINOPHILS % (AUTO) 0.9 % (0.0-4.0); HEMATOCRIT 39.4 % (36-48); HEMOGLOBIN 13.1 g/dL (12.0-16.0); LYMPHOCYTES # (AUTO) 1.3 K/uL (2.5-16.5); LYMPHOCYTES % (AUTO) 18.8 % (20.5-51.1); MEAN CORPUSCULAR HEMOGLOBIN 30 pg (27-31); MEAN CORPUSCULAR HGB CONC 33 g/dL (33-37); MEAN CORPUSCULAR VOLUME 89.7 fL (80-94); MONOCYTES % (AUTO) 14.5 % (1.7-9.3); NEUTROPHILS # (AUTO) 4.6 K/uL (1.8-7.7); NEUTROPHILS % (AUTO) 65.4 % (42.2-75.2); PLATELET COUNT (AUTO) 207 K/uL (140-450); RED BLOOD CELL COUNT(AUTO) 4.39 MIL/uL (4.20-5.40); RED CELL DISTRIBUTION WIDTH 14.5 % (11.6-13.7); WHITE BLOOD COUNT (AUTO) 7.1 K/uL (4.8-10.8)
[2019-05-30 01:49] LABS: ANION GAP 10.5 (8-16); CARBON DIOXIDE 27.6 mmol/L (21-32); POTASSIUM 4.1 mmol/L (3.5-5.1)
[2019-05-30 01:54] LABS: ALBUMIN 3.5 g/dL (3.4-5.0); TOTAL BILIRUBIN 0.5 mg/dL (0.0-1.0)
[2019-05-30] MEDS ORDERED: LORazepam 2 MG/ML VIAL IVP ONE (02:30)
[2019-05-30] MEDS ORDERED: PANTOPRAZOLE 40 MG INJ VIAL IVP ONE (03:05)
[2019-05-30 03:15] VITALS: BP 125/79
--- NOTE | 2019-05-30 03:15 | NUR ---
Patient discharged with v/s stable. Written and verbal after care instructions given and explained. Patient alert, oriented and verbalized understanding of instructions. Ambulatory with steady gait. All questions addressed prior to discharge. ID band removed. Patient advised to follow up with PMD. Rx of PROTONIX 40MG given. Patient educated on indication of medication including possible reaction and side effects. Opportunity to ask questions provided and answered.
== END 2019-05-30 03:15 | disposition home or self-care (01) ==
LOC: MED 23:27
DX: R07.9 Chest pain, unspecified (principal); K29.70 Gastritis, unspecified, without bleeding; K21.9 Gastro-esophageal reflux disease without esophagitis; I10 Essential (primary) hypertension; Z99.2 Dependence on renal dialysis; Z90.49 Acquired absence of other specified parts of digestive tract; Z79.899 Other long term (current) drug therapy
CPT/HCPCS: 36415; 76705; 80053; 83690; 84484; 85025; 93005; 96361; 96374; 96375; 99284; J1885; J2405; J7030; Q0092

== ENCOUNTER 2019-07-06 00:04 | Emergency (ER) | payer BC, MEDICAID ==
[~2019-07-06] VITALS: Ht 162.6 cm; Wt 100.7 kg
[2019-07-06 00:15] VITALS: BP 146/100
--- NOTE | 2019-07-06 00:24 | NUR ---
PT AMBULATED TO BED
--- NOTE | 2019-07-06 00:30 | NUR ---
48Y FEMALE PRESENTED TO ED, C/O ABD PAIN WITH EPISODES OF VOMITING X3 SINCE 1900. PT REPORTS EPIGASTRIC PAIN WITH BURNING SENSATION ON THROAT AND CHEST FROM VOMITING. DENIES FEVER, REPORTED CHILLS. PT ABD ROUND SOFT TENDER TO TOUCH. BOWEL SOUNDS PRESENT X4. PT AAOX4, GCS 15, RR EVEN UNLABORED, EDMD DR. NEWMAN MADE AWARE, WILL CONTINUE TO MONITOR CLOSELY. BED LOCKED IN LOWEST POSITION. SIDERAILS UPX2. HX KIDNEY TRANSPLANT (05/2017), LUPUS, CHOLECYSTECTOMY, HYSTERECTOMY,
[2019-07-06] MEDS ORDERED: DICYCLOMINE HCL LIQUID 20 MG, ALUMINUM HYD/MAG/SIMETHICONE 30 ML, LIDOCAINE VISCOUS 2% ... PO ONE ×3 (00:45)
[2019-07-06] MEDS ORDERED: ONDANSETRON 4 MG/2 ML VIAL IVP ONE (00:45)
[2019-07-06] MEDS ORDERED: NACL 0.9% 1,000 ML IV ONE (00:45)
[2019-07-06] MEDS ORDERED: MORPHINE SULFATE 4 MG/ML SYR IVP ONE ×2 (00:45→01:45)
[2019-07-06 00:59] LABS: BASOPHILS # (AUTO) 0.1 K/uL (0.00-0.22); BASOPHILS % (AUTO) 0.7 % (0.0-2.0); EOSINOPHILS % (AUTO) 0.6 % (0.0-4.0); LYMPHOCYTES # (AUTO) 1.5 K/uL (2.5-16.5); MEAN CORPUSCULAR HEMOGLOBIN 30 pg (27-31); MEAN CORPUSCULAR HGB CONC 33 g/dL (33-37); MEAN CORPUSCULAR VOLUME 89.5 fL (80-94); NEUTROPHILS # (AUTO) 5.5 K/uL (1.8-7.7); NEUTROPHILS % (AUTO) 68.7 % (42.2-75.2); PLATELET COUNT (AUTO) 244 K/uL (140-450); RED BLOOD CELL COUNT(AUTO) 4.36 MIL/uL (4.20-5.40); RED CELL DISTRIBUTION WIDTH 14.2 % (11.6-13.7); WHITE BLOOD COUNT (AUTO) 8.1 K/uL (4.8-10.8)
[2019-07-06 01:28] LABS: ANION GAP 13.4 (8-16); CARBON DIOXIDE 26.4 mmol/L (21-32); CREATININE 0.9 mg/dL (0.6-1.3); POTASSIUM 3.8 mmol/L (3.5-5.1)
[2019-07-06 01:29] LABS: ALBUMIN 3.3 g/dL (3.4-5.0); TOTAL BILIRUBIN 0.3 mg/dL (0.0-1.0)
[2019-07-06] MEDS ORDERED: FAMOTIDINE 20 MG/2 ML VIAL IVP ONE (01:45)
--- NOTE | 2019-07-06 02:10 | NUR ---
PT RESTING IN BED, REPORTED RELIEF OF PAIN AFTER MED ADMINSTRATION, IN STABLE CONDITION AT THIS TIME.
[2019-07-06 03:00] VITALS: BP 140/82
--- NOTE | 2019-07-06 03:00 | NUR ---
Patient discharged with v/s stable. Written and verbal after care instructions given and explained. Patient alert, oriented and verbalized understanding of instructions. Ambulatory with steady gait. All questions addressed prior to discharge. ID band removed. Patient advised to follow up with PMD. Rx of NEXIUM 20MG AND NORCO 5MG-325MG given. Patient educated on indication of medication including possible reaction and side effects. Opportunity to ask questions provided and answered.
== END 2019-07-06 03:00 | disposition home or self-care (01) ==
LOC: MED 00:04
DX: K27.9 Peptic ulcer, site unspecified, unspecified as acute or chronic, without hemorrhage or perforation (principal); I10 Essential (primary) hypertension; K21.9 Gastro-esophageal reflux disease without esophagitis; Z90.49 Acquired absence of other specified parts of digestive tract; Z98.890 Other specified postprocedural states; Z79.899 Other long term (current) drug therapy; Z94.0 Kidney transplant status
CPT/HCPCS: 36415; 80053; 83690; 85025; 96361; 96374; 96375; 96376; 99283; J2270; J2405; J3490; J7030

== ENCOUNTER 2019-07-08 15:57 | Emergency (ER) | payer BC, MEDICAID ==
[~2019-07-08] VITALS: Ht 162.6 cm; Wt 97.5 kg
[2019-07-08 16:09] VITALS: BP 109/77
--- NOTE | 2019-07-08 16:25 | NUR ---
PT TRIAGED, SENT BACK TO LOBBY AWAITING FOR BED
--- NOTE | 2019-07-08 16:58 | NUR ---
PT AMBULATED TO BED 09.
--- NOTE | 2019-07-08 17:08 | NUR ---
C/O BURNING PAIN TO EPIGASTRIC AREA RADIATING UP ESOPHAGUS; WORSE AT NIGHT DURING SLEEP----ADDS SHE AWAKES GASPING FOR AIR AT TIME AND WITH A COUGH FULL CLEAR SPEECH WITH NO ACCESSORY MUSCLE USE NOTED AT THIS TIME.
[2019-07-08] MEDS ORDERED: MORPHINE SULFATE 4 MG/ML SYR IVP ONE ×2 (17:25→19:00)
[2019-07-08] MEDS ORDERED: NACL 0.9% 1,000 ML IV ONE (17:25)
[2019-07-08] MEDS ORDERED: FAMOTIDINE 20 MG/2 ML VIAL IVP ONE (17:25)
[2019-07-08] MEDS ORDERED: ONDANSETRON 4 MG/2 ML VIAL IVP ONE (17:25)
--- NOTE | 2019-07-08 17:29 | NUR ---
PT CT VIA WHEELCHAIR
[2019-07-08 18:01] LABS: BASOPHILS # (AUTO) 0.1 K/uL (0.00-0.22); BASOPHILS % (AUTO) 0.9 % (0.0-2.0); HEMATOCRIT 41.6 % (36-48); HEMOGLOBIN 13.8 g/dL (12.0-16.0); MEAN CORPUSCULAR HEMOGLOBIN 29 pg (27-31); MEAN CORPUSCULAR HGB CONC 33 g/dL (33-37); MONOCYTES # (AUTO) 0.6 K/uL (0.8-1.0); MONOCYTES % (AUTO) 7.4 % (1.7-9.3); NEUTROPHILS # (AUTO) 5.9 K/uL (1.8-7.7); NEUTROPHILS % (AUTO) 78.7 % (42.2-75.2); PLATELET COUNT (AUTO) 234 K/uL (140-450); RED BLOOD CELL COUNT(AUTO) 4.68 MIL/uL (4.20-5.40); RED CELL DISTRIBUTION WIDTH 14.3 % (11.6-13.7); WHITE BLOOD COUNT (AUTO) 7.6 K/uL (4.8-10.8)
[2019-07-08 18:10] LABS: ANION GAP 17.2 (8-16); CARBON DIOXIDE 26.9 mmol/L (21-32); CREATININE 1.1 mg/dL (0.6-1.3); POTASSIUM 4.1 mmol/L (3.5-5.1)
[2019-07-08 18:15] LABS: ALBUMIN 3.9 g/dL (3.4-5.0); TOTAL BILIRUBIN 0.6 mg/dL (0.0-1.0)
[2019-07-08 18:23] VITALS: BP 117/74
--- NOTE | 2019-07-08 18:52 | NUR ---
PT RESTING IN BED WITH EYES CLOSED
[2019-07-08] MEDS ORDERED: RANI150T8 PO (18:55)
[2019-07-08] MEDS ORDERED: PANT40EC PO (18:55)
[2019-07-08] MEDS ORDERED: HYDROcodone/APAP 7.5/325 MG 1 TAB PO PRN (19:15)
[2019-07-08] MEDS ORDERED: ONDANSETRON 4 MG/2 ML VIAL IM/IVP PRN (19:15)
[2019-07-08] MEDS ORDERED: MORPHINE SULFATE 2 MG/ML SYR IVP PRN (19:15)
[2019-07-08] MEDS ORDERED: DOCUSATE SODIUM 100 MG GELCAP PO PRN (19:15)
[2019-07-08] MEDS ORDERED: ACETAMINOPHEN 325 MG TAB PO PRN (19:15)
--- NOTE | 2019-07-08 19:18 | NUR ---
RECEIVED REPORT FROM RICARDO KELLY. TRANSFER OF CARE AT THIS TIME.
--- NOTE | 2019-07-08 19:47 | NUR ---
Patient does not wish to proceed with medical care recommended by Dr. Garcia/Dr. Griffin. Patient given information related to possible complications, up to and including , which could occur as a result of leaving hospital at this time. Patient verbalizes understanding of risks involved leaving against medical advice. Patient has signed AMA form.
[2019-07-09] MEDS ORDERED: PANTOPRAZOLE 40 MG INJ VIAL IVP SCH (09:00)
== END 2019-07-08 19:47 | disposition left against medical advice (07) ==
LOC: MED 15:57
DX: K44.9 Diaphragmatic hernia without obstruction or gangrene (principal); I10 Essential (primary) hypertension; K21.9 Gastro-esophageal reflux disease without esophagitis; Z94.0 Kidney transplant status; Z79.899 Other long term (current) drug therapy
CPT/HCPCS: 36415; 74176; 80053; 81002; 81025; 83690; 85025; 96361; 96374; 96375; 96376; 99285; J2270; J2405; J3490; J7030

== ENCOUNTER 2019-07-09 17:16 | Emergency (ER) | payer BC, MEDICAID ==
[~2019-07-09] VITALS: Ht 162.6 cm; Wt 97.5 kg
[~2019-07-09 17:16] MED LIST changes: -HYDR-5092 PO; -OMEP20TC PO; +PANT40EC PO; +RANI150T8 PO
[2019-07-09 17:32] VITALS: BP 124/92
[2019-07-09] MEDS ORDERED: LIDOCAINE VISCOUS 2% 20 ML UDC PO ONE (19:00)
[2019-07-09] MEDS ORDERED: ALUMINUM HYD/MAG/SIMETHICONE 30 ML UDC PO ONE (19:00)
[2019-07-09] MEDS ORDERED: FAMOTIDINE 20 MG/2 ML VIAL IVP ONE (19:35)
[2019-07-09] MEDS ORDERED: ONDANSETRON 4 MG/2 ML VIAL IVP ONE (19:35)
[2019-07-09] MEDS ORDERED: DICYCLOMINE HCL LIQUID 20 MG, ALUMINUM HYD/MAG/SIMETHICONE 30 ML, LIDOCAINE VISCOUS 2% ... PO ONE ×3 (20:35)
[2019-07-09] MEDS ORDERED: METOCLOPRAMIDE 10 MG/2 ML INJ VIAL IVP ONE (20:40)
[2019-07-09] MEDS ORDERED: LORazepam 2 MG/ML VIAL IVP ONE (21:05)
[2019-07-09 21:53] VITALS: BP 148/98
== END 2019-07-09 21:53 | disposition home or self-care (01) ==
LOC: MED 17:16
DX: K29.70 Gastritis, unspecified, without bleeding (principal); F41.9 Anxiety disorder, unspecified; K21.9 Gastro-esophageal reflux disease without esophagitis; I10 Essential (primary) hypertension; Z90.49 Acquired absence of other specified parts of digestive tract; Z79.899 Other long term (current) drug therapy; Z94.0 Kidney transplant status
CPT/HCPCS: 81002; 81025; 96374; 96375; 99284; J2060; J2405; J2765; J3490

== ENCOUNTER 2019-07-13 04:53 | Inpatient (IN) | payer BC, MEDICAID ==
[~2019-07-13] VITALS: Ht 162.6 cm; Wt 103.0 kg
[2019-07-13 05:00] VITALS: BP 123/67
--- NOTE | 2019-07-13 05:04 | NUR ---
PT AMBULATED TO BED 8.
[2019-07-13] MEDS ORDERED: NACL 0.9% 1,000 ML IV SCH (05:09)
[2019-07-13] MEDS ORDERED: ONDANSETRON 4 MG/2 ML VIAL IVP ONE (05:10)
[2019-07-13] MEDS ORDERED: ALUMINUM HYD/MAG/SIMETHICONE 30 ML, DICYCLOMINE HCL LIQUID 20 MG, LIDOCAINE VISCOUS 2% ... PO ONE ×3 (05:40)
[2019-07-13] MEDS ORDERED: MORPHINE SULFATE 4 MG/ML SYR IVP ONE (05:40)
--- NOTE | 2019-07-13 06:04 | NUR ---
48 Y/O FEMALE BIB , PRESENTS TO ED C/O EPIGASTRIC BURNING PAIN 10/10 THAT RADIATES UP ESOPHAGUS AND THROAT. PT STATES PAIN STARTED LAST NIGHT. HAD 3 EPISODES OF N/V. PT UNABLE TO TOLERATE FOOD AND LIQUID. ACTIVE BS ON ALL QUADRANTS. ABD SOFT AND TENDER, PAIN ON PALPATION ON UPPER QUADRANT. PT VSS. ERMD AWARE. WILL CONTINUE TO MONITOR.
--- NOTE | 2019-07-13 06:46 | NUR ---
PT TAKEN TO XRAY
--- NOTE | 2019-07-13 07:16 | NUR ---
PT [id number]. REQUESTING MORE PAIN MEDICATIONS. ERMD NOTIFIED.
--- NOTE | 2019-07-13 07:44 | NUR ---
DR DRAKE AT BEDSIDE
[2019-07-13] MEDS ORDERED: diphenhydrAMINE 50 MG/ML VIAL IVP ONE (07:55)
[2019-07-13] MEDS ORDERED: METOCLOPRAMIDE 10 MG/2 ML INJ VIAL IVP ONE (07:55)
[2019-07-13 08:25] LABS: APPEARANCE,URINE CLEAR (CLEAR); BILIRUBIN,URINE NEGATIVE (NEGATIVE); BLOOD, URINE TRACE-I (NEGATIVE); COLOR,URINE YELLOW (YELLOW); LEUKOCYTE ESTERASE ,URINE NEGATIVE (NEGATIVE); NITRITE, URINE NEGATIVE (NEGATIVE); PH,URINE 8.5 (5.0-9.0); UGLUCOSE NEGATIVE (NEGATIVE)
[2019-07-13 08:36] LABS: WBC,URINE 0-5 /HPF (0-5)
--- NOTE | 2019-07-13 08:39 | NUR ---
UNABLE TO DRAW BLOOD FROM R SHOULDER IV, EJ INSERTED BY NORMA SILVA WITH DR DRAKE ASSISTING
[2019-07-13 09:03] LABS: BASOPHILS % (AUTO) 0.4 % (0.0-2.0); EOSINOPHILS % (AUTO) 0.3 % (0.0-4.0); HEMOGLOBIN 12.8 g/dL (12.0-16.0); LYMPHOCYTES % (AUTO) 11.5 % (20.5-51.1); MEAN CORPUSCULAR HEMOGLOBIN 31 pg (27-31); MEAN CORPUSCULAR HGB CONC 34 g/dL (33-37); MEAN CORPUSCULAR VOLUME 90.7 fL (80-94); MONOCYTES # (AUTO) 0.8 K/uL (0.8-1.0); MONOCYTES % (AUTO) 9.2 % (1.7-9.3); NEUTROPHILS # (AUTO) 7.1 K/uL (1.8-7.7); NEUTROPHILS % (AUTO) 78.6 % (42.2-75.2); PLATELET COUNT (AUTO) 200 K/uL (140-450); RED BLOOD CELL COUNT(AUTO) 4.19 MIL/uL (4.20-5.40); RED CELL DISTRIBUTION WIDTH 14.8 % (11.6-13.7)
[2019-07-13 09:23] LABS: ANION GAP 11.7 (8-16); CARBON DIOXIDE 26.9 mmol/L (21-32); CREATININE 0.8 mg/dL (0.6-1.3); POTASSIUM 3.6 mmol/L (3.5-5.1)
[2019-07-13 09:29] LABS: ALBUMIN 3.5 g/dL (3.4-5.0); TOTAL BILIRUBIN 0.3 mg/dL (0.0-1.0)
[2019-07-13] MEDS ORDERED: ACETAMINOPHEN 325 MG TAB PO PRN (10:00)
[2019-07-13] MEDS ORDERED: MORPHINE SULFATE 2 MG/ML SYR IVP PRN (10:00)
[2019-07-13] MEDS ORDERED: DOCUSATE SODIUM 100 MG GELCAP PO PRN (10:00)
[2019-07-13] MEDS ORDERED: ONDANSETRON 4 MG/2 ML VIAL IM/IVP PRN (10:00)
[2019-07-13] MEDS ORDERED: PANTOPRAZOLE 40 MG INJ VIAL IVP SCH (10:20)
--- NOTE | 2019-07-13 10:29 | NUR ---
Patient will be admitted to care of DR. FERNANDEZ. Admited to MED SURG. Will go to [id number]. Belongings list completed. Report to RICARDO CHRISTINA.
[2019-07-13 10:30] VITALS: BP 119/71
--- NOTE | 2019-07-13 10:30 | NUR ---
PATIENT ARRIVED FROM ER VIA WHEELCHAIR. ABLE TO AMBULATE FROM WHEELCHAIR TO [facility] BED WITH STEADY GAIT. NO DISTRESS NOTED. PAIN WITHIN TOLERABLE. AAOX4, CALM, COOPERATIVE, SKIN COLOR APPROPRIATE TO ETHNICITY, WARM TO TOUCH. SKIN INTACT. IV SITE INTACT, PATENT, AND INFUSING IVF PER MD ORDERS. ABDOMEN SOFT, OBESE. ORIENTED PATIENT TO ROOM AND CALL LIGHT. REVIEWED PLAN OF CARE WITH PATIENT. PATIENT VERBALIZED UNDERSTANDING. SAFETY MEASURES IN PLACE, CALL LIGHT WITHIN REACH. WILL CONTINUE TO MONITOR.
[2019-07-13 11:03] LABS: PROTHROMBIN TIME 9.6 secs (10.8-13.4)
[2019-07-13] MEDS ORDERED: MORPHINE SULFATE 2 MG/ML SYR IM/IVP SCH (11:15)
[2019-07-13] MEDS ORDERED: LIDOCAINE VISCOUS 2% 20 ML UDC PO SCH (11:15)
[2019-07-13] MEDS ORDERED: ALUMINUM HYD/MAG/SIMETHICONE 30 ML UDC PO SCH (11:15)
[2019-07-13] MEDS ORDERED: DICYCLOMINE HCL LIQUID 10 MG/5 ML UDC PO SCH (11:15)
--- NOTE | 2019-07-13 11:20 | NUR ---
DR. SKINNER AT BEDSIDE REVIEWING PLAN OF CARE WITH PATIENT. WILL CONTINUE TO MONITOR.
[2019-07-13 11:21] LABS: CHOL/HDL RATIO 2.3 (1-4.5); FREE T4 (FREE THYROXINE) 1.06 ng/dL (0.76-1.46); MAGNESIUM 1.6 mg/dL (1.8-2.4); PHOSPHORUS 2.9 mg/dL (2.5-4.9); THYROID STIMULATING HORMONE 4.37 uIU/mL (0.34-3.74)
[2019-07-13] MEDS: NACL 0.9% 1,000 ML IV SCH (11:38)
[2019-07-13] MEDS ORDERED: LORazepam 2 MG/ML VIAL IM/IVP SCH (11:50)
[2019-07-13 11:54] LABS: BARBITURATE, URINE NEG. ng/ml (NEG <=200); BENZODIAZEPINE, URINE NEG. ng/mL (NEG <=200); CANNABINOID, URINE NEG. ng/mL (NEG <=50); COCAINE, URINE NEG. ng/mL (NEG <=300); OPIATE, URINE POS. ng/mL (NEG <=2000); PHENCYCLIDINE SCREEN,URINE NEG. ng/mL (NEG <=25)
--- NOTE | 2019-07-13 11:54 | NUR ---
PATIENT LYING DOWN IN BED WITH COMPLAINS OF ABD PAIN. ONE TIME DOSE MEDICATIONS ORDERED BY DR. SKINNER GIVEN. PATIENT TOLERATED WELL. WILL CONTINUE TO MONITOR.
[2019-07-13] MEDS: SUCRALFATE 1 GM TAB PO SCH ×3 (14:50→20:39)
--- NOTE | 2019-07-13 14:59 | NUR ---
PATIENT LYING DOWN IN BED SLEEPING, AROUSABLE BY VOICE. COMPLAINS OF ANXIETY, ATIVAN IV VIA ONE DOSE GIVEN AT THIS TIME. OTHER SCHEDULED MEDICATIONS DUE GIVEN. WILL CONTINUE TO MONITOR.
[2019-07-13] MEDS ORDERED: predniSONE 5 MG TAB PO SCH (15:15)
[2019-07-13] MEDS ORDERED: MYCOPHENOLATE 250 MG CAP PO SCH (15:15)
[2019-07-13] MEDS ORDERED: TACROLIMUS 0.5 MG CAP PO SCH (15:15)
[2019-07-13 16:00] VITALS: BP 114/84
[2019-07-13] MEDS ORDERED: MAG SULF 2000 MG/WATER PREMIX 100 ML IV SCH (17:40)
--- NOTE | 2019-07-13 18:09 | NUR ---
PATIENT LYING DOWN IN BED SLEEPING, AROUSABLE BY VOICE. NO DISTRESS NOTED. DENIES ANY PAIN. SCHEDULED MEDICATIONS DUE GIVEN. WILL CONTINUE TO MONITOR.
--- NOTE | 2019-07-13 19:15 | NUR ---
Received endorsement from AM shift RN; patient A/Ox4, able to make needs known, Divehi speaking, ambulatory. Patient resting comfortably, introduced self, updated board. No SOB or distress noted, on room aur. IV sites on right upper chest, 22 gauge, running Magnesium and left intrajugular, saline locked. Skin intact. Bed in the lowest position, call light within reach. Initial assessment done. Will continue to monitor. Addendum: 07/13/19 at 1918 by Johnathon Murguia RN Time is 1918, not 1914.
--- NOTE | 2019-07-13 19:18 | NUR ---
GAVE REPORT TO UTILIZATION SUPERVISOR NURSE FOR CONTINUITY OF CARE. PATIENT IN STABLE CONDITION.
[2019-07-13] MEDS: HYDROcodone/APAP 5/325 MG 1 TAB TAB PO PRN (20:38)
[2019-07-13] MEDS: PANTOPRAZOLE 40 MG INJ VIAL IVP SCH (20:39)
[2019-07-13] MEDS: MYCOPHENOLATE 250 MG CAP PO SCH (20:39)
[2019-07-13] MEDS: FAMOTIDINE 20 MG TAB PO SCH (20:40)
[2019-07-13] MEDS: TACROLIMUS 1 MG CAP PO SCH (20:41)
[2019-07-13] MEDS ORDERED: AMITRIPTYLINE 25 MG TAB PO SCH (21:00)
[2019-07-13] MEDS ORDERED: PANTOPRAZOLE 40 MG TABEC PO SCH (21:00)
[2019-07-13] MEDS ORDERED: LORazepam 2 MG/ML VIAL IM/IVP PRN (21:00)
--- NOTE | 2019-07-13 21:02 | NUR ---
Due meds given, tolerated well.
--- NOTE | 2019-07-13 23:45 | NUR ---
Vitals taken, no SOB or distress noted.
[2019-07-14] VITALS: BP 124/86
--- NOTE | 2019-07-14 01:20 | NUR ---
Rounds done; patient asleep, eyes closed, visible chest rise and fall noted.
[2019-07-14] MEDS: NACL 0.9% 1,000 ML IV SCH (03:11)
--- NOTE | 2019-07-14 03:15 | NUR ---
Checks made; patient resting comfortably.
--- NOTE | 2019-07-14 04:47 | NUR ---
Rounds done; no distress noted.
--- NOTE | 2019-07-14 06:25 | NUR ---
Vitals stable, due meds given. Will endorse to AM shift RN for continuity of care.
[2019-07-14 06:36] LABS: BASOPHILS % (AUTO) 0.3 % (0.0-2.0); EOSINOPHILS # (AUTO) 0.1 K/uL (0-0.4); HEMATOCRIT 37.4 % (36-48); HEMOGLOBIN 12.4 g/dL (12.0-16.0); MEAN CORPUSCULAR HEMOGLOBIN 30 pg (27-31); MEAN CORPUSCULAR HGB CONC 33 g/dL (33-37); MEAN CORPUSCULAR VOLUME 90.1 fL (80-94); MONOCYTES # (AUTO) 0.6 K/uL (0.8-1.0); MONOCYTES % (AUTO) 11.1 % (1.7-9.3); NEUTROPHILS % (AUTO) 70.6 % (42.2-75.2); PLATELET COUNT (AUTO) 186 K/uL (140-450); RED BLOOD CELL COUNT(AUTO) 4.15 MIL/uL (4.20-5.40); RED CELL DISTRIBUTION WIDTH 14.2 % (11.6-13.7); WHITE BLOOD COUNT (AUTO) 5.6 K/uL (4.8-10.8)
--- NOTE | 2019-07-14 07:21 | NUR ---
RECEIVED ENDORSEMENT FROM WORK CHECKER NURSE. PATIENT IS AAOX4, ANGUILLAN SPEAKING. RESPIRATIONS ARE EVEN AND UNLABORED ON ROOM AIR. PATIENT DENIES ANY PAIN AT THIS TIME. LEFT UPPER 22G IV INTACT, PATENT, AND INFUSING IVF. RIGHT IJ 20G IV INTACT AND SL. PLAN OF CARE WAS REVIEWED WITH PATIENT, PATIENT VERBALIZED UNDERSTANDING. SAFETY MEASURES IN PLACE,CALL LIGHT WITHIN REACH.
[2019-07-14 08:00] VITALS: BP 117/80
[2019-07-14 08:02] LABS: ANION GAP 13.5 (8-16); CARBON DIOXIDE 23.7 mmol/L (21-32); POTASSIUM 4.2 mmol/L (3.5-5.1)
[2019-07-14 08:16] LABS: CREATININE 0.8 mg/dL (0.6-1.3)
--- NOTE | 2019-07-14 08:29 | NUR ---
PATIENT HAS BEEN SCREENED AND CATEGORIZED HIGH NUTRITION RISK. PATIENT WILL BE SEEN WITHIN 1-2 DAYS OF ADMISSION. 07/14/[address]
[2019-07-14] MEDS: MYCOPHENOLATE 250 MG CAP PO SCH (08:36)
[2019-07-14] MEDS: SUCRALFATE 1 GM TAB PO SCH (08:37)
[2019-07-14] MEDS: FAMOTIDINE 20 MG TAB PO SCH (08:37)
--- NOTE | 2019-07-14 08:37 | NUR ---
ADMINISTERED SCHEDULED MEDICATIONS. PATIENT TOLERATED WELL. NO OTHER NEEDS AT THIS TIME, WILL CONTINUE TO MONITOR. Addendum: 07/14/19 at 1036 by Glo Perrin RN BP MEDICATION HELD FOR CONSISTENT BP AROUND 117/80. Addendum: 07/14/19 at 1037 by Glo Perrin RN HR 65
[2019-07-14] MEDS: PANTOPRAZOLE 40 MG INJ VIAL IVP SCH (08:38)
[2019-07-14] MEDS: TACROLIMUS 1 MG CAP PO SCH (08:38)
[2019-07-14] MEDS ORDERED: PANTOPRAZOLE 40 MG INJ VIAL IVP SCH (09:00)
[2019-07-14] MEDS ORDERED: LORazepam 1 MG TAB PO SCH (09:00)
[2019-07-14] MEDS ORDERED: predniSONE 5 MG TAB PO SCH (09:00)
[2019-07-14] MEDS ORDERED: NON-FORMULARY ITEM (Ranitidine HCl (Ranitidine Hydrochloride) 150 MG) PO SCH (09:00)
[2019-07-14] MEDS ORDERED: amLODIPine 5 MG TAB PO SCH (09:00)
[2019-07-14] MEDS: HYDROcodone/APAP 5/325 MG 1 TAB TAB PO PRN (09:39)
--- NOTE | 2019-07-14 09:50 | NUR ---
PER DR. SEO, OK TO GIVE PATIENT SOMETHING TO EAT.
--- NOTE | 2019-07-14 10:33 | NUR ---
DISCHARGE INSTRUCTIONS PROVIDED. ALL QUESTIONS AND CONCERNS ADDRESS. IV LINES WERE DISCONTINUED, CANNULA INTACT, WITH MINIMAL BLEEDING TO BOTH LINES. PATIENT STATED THAT SHE WILL BE GOING HOME AND BE PICKED UP BY HER . NO OTHER NEEDS AT THIS TIME.
--- NOTE | 2019-07-14 10:50 | NUR ---
PATIENT WHEELED OFF UNIT VIA WHEELCHAIR. ID BAND WAS REMOVED. ALL BELONGINGS LEFT WITH PATIENT. PATIENT IS STABLE AT THIS TIME.
== END 2019-07-14 10:50 | disposition home or self-care (01) | DRG 392 ==
LOC: MED 04:53 → MTU 10:17
PROVIDERS: ADMIT General Practice; ATTEND General Practice
DX: K21.9 Gastro-esophageal reflux disease without esophagitis (principal); Z94.0 Kidney transplant status; I10 Essential (primary) hypertension; F41.1 Generalized anxiety disorder; E66.9 Obesity, unspecified; E83.42 Hypomagnesemia; Z68.36 Body mass index [BMI] 36.0-36.9, adult; Z71.3 Dietary counseling and surveillance; Z79.899 Other long term (current) drug therapy; Z90.710 Acquired absence of both cervix and uterus; Z90.49 Acquired absence of other specified parts of digestive tract; Z83.3 Family history of diabetes mellitus
CPT/HCPCS: 36415; 74022; 80048; 80053; 80305; 81001; 82150; 83036; 83690; 83735; 83880; 84100; 84134; 84439; 84443; 84484; 84703; 85025; 85610; 85730; 86140; 87040; 87081; 87086; 96361; 96374; 96375; 99285; C9113; J1200; J2060; J2270; J2405; J2765; J3475; J7030; J7507; J7512; J7517

== ENCOUNTER 2019-08-06 15:48 | Emergency (ER) | payer BC, MEDICAID ==
[~2019-08-06] VITALS: Ht 162.6 cm; Wt 102.5 kg
[2019-08-06 15:55] VITALS: BP 124/88
[2019-08-06 16:13] VITALS: BP 120/85
[2019-08-06] MEDS ORDERED: MORPHINE SULFATE 2 MG/ML SYR IM/IVP ONE (16:30)
[2019-08-06] MEDS ORDERED: ONDANSETRON 4 MG ODT PO ONE (16:30)
[2019-08-06] MEDS ORDERED: diphenhydrAMINE 50 MG/ML VIAL IM ONE (16:55)
[2019-08-06] MEDS ORDERED: LORazepam 2 MG/ML VIAL IM ONE (16:55)
== END 2019-08-06 17:25 | disposition home or self-care (01) ==
LOC: MED 15:48
DX: R10.9 Unspecified abdominal pain (principal); R11.0 Nausea; K21.9 Gastro-esophageal reflux disease without esophagitis; I10 Essential (primary) hypertension; F41.9 Anxiety disorder, unspecified; Z90.49 Acquired absence of other specified parts of digestive tract; Z98.890 Other specified postprocedural states; Z79.899 Other long term (current) drug therapy
CPT/HCPCS: 74022; 96372; 99283; J1200; J2060; J2270; Q0162

== ENCOUNTER 2019-08-07 21:43 | Emergency (ER) | payer BC, MEDICAID ==
[~2019-08-07] VITALS: Ht 162.6 cm; Wt 99.8 kg
[2019-08-07 21:55] VITALS: BP 122/77
--- NOTE | 2019-08-07 22:05 | NUR ---
PT TRIAGED, SENT BACK TO [facility]
[2019-08-07 22:34] LABS: BASOPHILS % (AUTO) 0.4 % (0.0-2.0); EOSINOPHILS # (AUTO) 0.1 K/uL (0-0.4); EOSINOPHILS % (AUTO) 0.6 % (0.0-4.0); HEMATOCRIT 41.4 % (36-48); HEMOGLOBIN 13.6 g/dL (12.0-16.0); LYMPHOCYTES # (AUTO) 1.5 K/uL (2.5-16.5); LYMPHOCYTES % (AUTO) 16.2 % (20.5-51.1); MEAN CORPUSCULAR HEMOGLOBIN 30 pg (27-31); MEAN CORPUSCULAR HGB CONC 33 g/dL (33-37); MEAN CORPUSCULAR VOLUME 90.2 fL (80-94); MONOCYTES # (AUTO) 0.9 K/uL (0.8-1.0); MONOCYTES % (AUTO) 9.4 % (1.7-9.3); NEUTROPHILS # (AUTO) 6.7 K/uL (1.8-7.7); NEUTROPHILS % (AUTO) 73.4 % (42.2-75.2); PLATELET COUNT (AUTO) 205 K/uL (140-450); RED BLOOD CELL COUNT(AUTO) 4.59 MIL/uL (4.20-5.40); RED CELL DISTRIBUTION WIDTH 14.3 % (11.6-13.7); WHITE BLOOD COUNT (AUTO) 9.1 K/uL (4.8-10.8)
--- NOTE | 2019-08-07 22:38 | NUR ---
PT AMBULATED TO BED 07.
[2019-08-07 22:45] LABS: APPEARANCE,URINE CLEAR (CLEAR); BILIRUBIN,URINE NEGATIVE (NEGATIVE); BLOOD, URINE NEGATIVE (NEGATIVE); COLOR,URINE YELLOW (YELLOW); LEUKOCYTE ESTERASE ,URINE NEGATIVE (NEGATIVE); NITRITE, URINE NEGATIVE (NEGATIVE); PH,URINE 5.5 (5.0-9.0); UGLUCOSE NEGATIVE (NEGATIVE)
--- NOTE | 2019-08-07 22:45 | NUR ---
49 Y/O F PRESENTS TO ER C/O EPIGASTRIC PAIN RADIATING TO BACK. PAIN LEVEL 9/10, CONSTANT "TIGHT" PAIN. PT STATES "I HAVE ALOT OF ANXIETY. MY PCP PRESCRIBED LORAZEPAM AND I TAKE IT EVERY DAY. I TOOK IT THIS MORNING BUT AM STILL HAVING ANXIETY." PT ALSO C/O N/V, VOMIT X 3, ACID-LIKE. PT DENIES DIARRHEA. LAST BM 08/07/19, NORMAL. NKA. MED HX: GASTRIC ULCER, KIDNEY TRANSPLANT, LUPUS, CHOLECYSTECTOMY, HERNIA. SAFETY MEASURES IN PLACE. ERMD MADE AWARE OF PT STATUS.
[2019-08-07 22:48] LABS: ANION GAP 12.5 (8-16); CARBON DIOXIDE 27.2 mmol/L (21-32); POTASSIUM 3.7 mmol/L (3.5-5.1)
[2019-08-07 23:01] LABS: TOTAL BILIRUBIN 0.4 mg/dL (0.0-1.0)
[2019-08-08] MEDS ORDERED: MORPHINE SULFATE 4 MG/ML SYR IVP ONE ×2 (00:15→00:45)
--- NOTE | 2019-08-08 01:41 | NUR ---
PT STATES PAIN RELIEF. PAIN LEVEL 04/14. PT C/O ANXIETY. ERMD MADE AWARE.
--- NOTE | 2019-08-08 01:48 | NUR ---
PT AMBULATED TO RESTROOM
--- NOTE | 2019-08-08 02:30 | NUR ---
PT RETURNED TO BED [address] VIA W/C
--- NOTE | 2019-08-08 02:37 | NUR ---
Frantz pickering in [place] - 08/08/19 at 0237 by PAVAN PT RETURNED FROM CT VIA W/C
--- NOTE | 2019-08-08 02:40 | NUR ---
PT RESTING IN BED COMFORTABLY. VSS. WILL CONTINEU TO MONITOR.
[2019-08-08 04:00] VITALS: BP 112/87
--- NOTE | 2019-08-08 04:10 | NUR ---
Patient discharged with v/s stable. Pt encouraged to rest and eat a light diet until abdominal pain subsides. Written and verbal after care instructions given and explained. Patient verbalized understanding. Ambulatory with steady gait. All questions addressed prior to discharge. Advised to follow up with PMD.
== END 2019-08-08 04:00 | disposition home or self-care (01) ==
LOC: MED 21:43
DX: R10.13 Epigastric pain (principal); F41.9 Anxiety disorder, unspecified; R11.10 Vomiting, unspecified; K21.9 Gastro-esophageal reflux disease without esophagitis; I10 Essential (primary) hypertension; Z90.49 Acquired absence of other specified parts of digestive tract; Z98.890 Other specified postprocedural states; Z79.899 Other long term (current) drug therapy
CPT/HCPCS: 36415; 74150; 80053; 81003; 81025; 83690; 84484; 85025; 96374; 99284; J2270; 99283

== ENCOUNTER 2019-08-13 13:28 | Emergency (ER) | payer BC, MEDICAID ==
[~2019-08-13] VITALS: Ht 162.6 cm; Wt 99.8 kg
[2019-08-13 13:54] VITALS: BP 121/84
[2019-08-13] MEDS ORDERED: NACL 0.9% 1,000 ML IV ONE (14:20)
[2019-08-13] MEDS ORDERED: ONDANSETRON 4 MG/2 ML VIAL IVP ONE (14:20)
[2019-08-13] MEDS ORDERED: MORPHINE SULFATE 4 MG/ML SYR IVP ONE ×2 (14:20→16:30)
[2019-08-13 15:32] LABS: BASOPHILS % (AUTO) 0.6 % (0.0-2.0); EOSINOPHILS % (AUTO) 0.2 % (0.0-4.0); HEMATOCRIT 40.3 % (36-48); LYMPHOCYTES # (AUTO) 0.7 K/uL (2.5-16.5); LYMPHOCYTES % (AUTO) 8.8 % (20.5-51.1); MEAN CORPUSCULAR HEMOGLOBIN 30 pg (27-31); MEAN CORPUSCULAR HGB CONC 32 g/dL (33-37); MEAN CORPUSCULAR VOLUME 91.7 fL (80-94); MONOCYTES # (AUTO) 0.4 K/uL (0.8-1.0); MONOCYTES % (AUTO) 5.6 % (1.7-9.3); NEUTROPHILS # (AUTO) 6.7 K/uL (1.8-7.7); NEUTROPHILS % (AUTO) 84.8 % (42.2-75.2); PLATELET COUNT (AUTO) 209 K/uL (140-450); RED CELL DISTRIBUTION WIDTH 14.2 % (11.6-13.7); WHITE BLOOD COUNT (AUTO) 7.9 K/uL (4.8-10.8)
[2019-08-13 15:59] LABS: ANION GAP 14.7 (8-16); CARBON DIOXIDE 24.5 mmol/L (21-32); CREATININE 0.9 mg/dL (0.6-1.3); POTASSIUM 4.2 mmol/L (3.5-5.1); TOTAL BILIRUBIN 0.4 mg/dL (0.0-1.0)
[2019-08-13 16:11] LABS: APPEARANCE,URINE CLEAR (CLEAR); BILIRUBIN,URINE NEGATIVE (NEGATIVE); COLOR,URINE YELLOW (YELLOW); LEUKOCYTE ESTERASE ,URINE NEGATIVE (NEGATIVE); NITRITE, URINE NEGATIVE (NEGATIVE); UGLUCOSE NEGATIVE (NEGATIVE)
[2019-08-13] MEDS ORDERED: diphenhydrAMINE 50 MG/ML VIAL IVP ONE (16:30)
[2019-08-13 16:43] LABS: BLOOD, URINE NEG (NEGATIVE)
[2019-08-13 17:42] VITALS: BP 125/78
== END 2019-08-13 17:42 | disposition home or self-care (01) ==
LOC: MED 13:28
DX: G89.29 Other chronic pain (principal); R11.2 Nausea with vomiting, unspecified; R10.13 Epigastric pain; R19.7 Diarrhea, unspecified; K21.9 Gastro-esophageal reflux disease without esophagitis; I10 Essential (primary) hypertension; Z79.899 Other long term (current) drug therapy
CPT/HCPCS: 36415; 80053; 81001; 81025; 83690; 84703; 85025; 96361; 96374; 96375; 96376; 99283; J1200; J2270; J2405; J7030; 81003

== ENCOUNTER 2019-08-20 15:40 | Emergency (ER) | payer BC, MEDICAID ==
[~2019-08-20] VITALS: Ht 162.6 cm; Wt 99.8 kg
[2019-08-20 16:12] VITALS: BP 137/69
[2019-08-20 17:14] LABS: BASOPHILS % (AUTO) 0.4 % (0.0-2.0); EOSINOPHILS % (AUTO) 0.4 % (0.0-4.0); HEMATOCRIT 38.6 % (36-48); HEMOGLOBIN 12.6 g/dL (12.0-16.0); LYMPHOCYTES # (AUTO) 0.8 K/uL (2.5-16.5); LYMPHOCYTES % (AUTO) 10.8 % (20.5-51.1); MEAN CORPUSCULAR HEMOGLOBIN 30 pg (27-31); MEAN CORPUSCULAR HGB CONC 33 g/dL (33-37); MEAN CORPUSCULAR VOLUME 91.5 fL (80-94); MONOCYTES # (AUTO) 0.6 K/uL (0.8-1.0); MONOCYTES % (AUTO) 7.5 % (1.7-9.3); NEUTROPHILS # (AUTO) 6.3 K/uL (1.8-7.7); NEUTROPHILS % (AUTO) 80.9 % (42.2-75.2); PLATELET COUNT (AUTO) 195 K/uL (140-450); RED BLOOD CELL COUNT(AUTO) 4.21 MIL/uL (4.20-5.40); RED CELL DISTRIBUTION WIDTH 14.6 % (11.6-13.7); WHITE BLOOD COUNT (AUTO) 7.8 K/uL (4.8-10.8)
[2019-08-20 17:30] LABS: ANION GAP 14.9 (8-16); CARBON DIOXIDE 22.2 mmol/L (21-32); CREATININE 0.9 mg/dL (0.6-1.3); POTASSIUM 4.1 mmol/L (3.5-5.1)
[2019-08-20 17:40] LABS: ALBUMIN 3.8 g/dL (3.4-5.0); TOTAL BILIRUBIN 0.2 mg/dL (0.0-1.0)
[2019-08-20] MEDS ORDERED: ONDANSETRON 4 MG/2 ML VIAL IVP ONE (18:20)
[2019-08-20] MEDS ORDERED: NACL 0.9% 1,000 ML IV ONE (18:20)
[2019-08-20] MEDS ORDERED: MORPHINE SULFATE 10 MG/ML VIAL IVP ONE (18:20)
[2019-08-20 18:44] LABS: APPEARANCE,URINE CLEAR (CLEAR); BILIRUBIN,URINE NEGATIVE (NEGATIVE); BLOOD, URINE NEGATIVE (NEGATIVE); COLOR,URINE YELLOW (YELLOW); LEUKOCYTE ESTERASE ,URINE NEGATIVE (NEGATIVE); NITRITE, URINE NEGATIVE (NEGATIVE); PH,URINE 5.5 (5.0-9.0); UGLUCOSE NEGATIVE (NEGATIVE)
[2019-08-20] MEDS ORDERED: diphenhydrAMINE 50 MG/ML VIAL IVP ONE (19:30)
[2019-08-20 22:28] VITALS: BP 149/93
== END 2019-08-20 22:28 | disposition home or self-care (01) ==
LOC: MED 15:40
DX: K44.9 Diaphragmatic hernia without obstruction or gangrene (principal); L50.9 Urticaria, unspecified; K21.9 Gastro-esophageal reflux disease without esophagitis; I10 Essential (primary) hypertension; Z90.49 Acquired absence of other specified parts of digestive tract; Z94.0 Kidney transplant status; Z79.899 Other long term (current) drug therapy; Z91.041 Radiographic dye allergy status
CPT/HCPCS: 36415; 74177; 80053; 81003; 81025; 83690; 84484; 85025; 96361; 96374; 96375; 99284; J1200; J2270; J2405; J7030; Q9967

== ENCOUNTER 2019-08-21 17:54 | Emergency (ER) | payer BC, MEDICAID ==
[~2019-08-21] VITALS: Ht 162.6 cm; Wt 101.8 kg
[2019-08-21 18:07] VITALS: BP 140/87
--- NOTE | 2019-08-21 18:13 | NUR ---
PT AMBULATED TO LOBBY AT THIS TIME, VSS.
--- NOTE | 2019-08-21 18:39 | NUR ---
Patient ambulated to bed 7 with family. RN evaluating patient at bedside.
--- NOTE | 2019-08-21 18:56 | NUR ---
PATIENT PRESENTS TO ED WITH ABD PAIN AND RASHES. PT STAES THAT SHE HAS N/D. SKIN IS PINK/WARM/DRY WITH CIRCULAR RASHES THROUGHOUT BODY; AAOX4 WITH EVEN AND STEADY GAIT; LUNGS CLEAR BL; HR EVEN AND REGULAR; PT DENIES ANY FEVER, CP, SOB, OR COUGH AT THIS TIME; PATIENT STATES PAIN OF 7/10 AT THIS TIME; VSS; PATIENT POSITIONED FOR COMFORT; HOB ELEVATED; BEDRAILS UP X2; BED DOWN. ER MD MADE AWARE OF PT STATUS.
--- NOTE | 2019-08-21 19:15 | NUR ---
SBAR REPORT GIVEN TO LINDA SILVA AT BEDSIDE.
[2019-08-21] MEDS ORDERED: MORPHINE SULFATE 4 MG/ML SYR IVP ONE (20:45)
[2019-08-21 21:25] VITALS: BP 145/80
--- NOTE | 2019-08-21 21:25 | NUR ---
PT DISCHARGED WITH PAPERWORK. RX BENADRYL. EDUCATED PT REGARDING MEDICATION AND S/E. EDUCATED PT REGARDING D/C DIAGNOSIS AND INSTRUCTIONS. PT VERBALIZED UNDERSTANDING OF TEACHING. TOLD PT TO FOLLOW UP WITH PCP AND WHEN TO RETURN ED. PT VSS. ALL QUESTIONS ANSWERED.
== END 2019-08-21 21:25 | disposition home or self-care (01) ==
LOC: MED 17:54
DX: R21 Rash and other nonspecific skin eruption (principal); L29.9 Pruritus, unspecified; K21.9 Gastro-esophageal reflux disease without esophagitis; I10 Essential (primary) hypertension; Z79.899 Other long term (current) drug therapy
CPT/HCPCS: 96374; 99283; J2270; Q0163

== ENCOUNTER 2019-08-29 17:41 | Emergency (ER) | payer BC, MEDICAID ==
[~2019-08-29] VITALS: Ht 157.5 cm; Wt 101.6 kg
[2019-08-29 18:00] VITALS: BP 137/96
[2019-08-29 18:36] LABS: BASOPHILS % (AUTO) 0.2 % (0.0-2.0); EOSINOPHILS # (AUTO) 0.1 K/uL (0-0.4); EOSINOPHILS % (AUTO) 0.8 % (0.0-4.0); HEMATOCRIT 41.4 % (36-48); HEMOGLOBIN 13.5 g/dL (12.0-16.0); LYMPHOCYTES # (AUTO) 0.9 K/uL (2.5-16.5); LYMPHOCYTES % (AUTO) 10.1 % (20.5-51.1); MEAN CORPUSCULAR HEMOGLOBIN 30 pg (27-31); MEAN CORPUSCULAR HGB CONC 33 g/dL (33-37); MEAN CORPUSCULAR VOLUME 91.8 fL (80-94); MONOCYTES # (AUTO) 0.6 K/uL (0.8-1.0); MONOCYTES % (AUTO) 6.9 % (1.7-9.3); PLATELET COUNT (AUTO) 217 K/uL (140-450); RED BLOOD CELL COUNT(AUTO) 4.51 MIL/uL (4.20-5.40); RED CELL DISTRIBUTION WIDTH 14.7 % (11.6-13.7); WHITE BLOOD COUNT (AUTO) 8.6 K/uL (4.8-10.8)
[2019-08-29 18:55] LABS: ALBUMIN 4.1 g/dL (3.4-5.0); ANION GAP 14.8 (8-16); CARBON DIOXIDE 26.3 mmol/L (21-32); CREATININE 0.8 mg/dL (0.6-1.3); POTASSIUM 4.1 mmol/L (3.5-5.1); TOTAL BILIRUBIN 0.4 mg/dL (0.0-1.0)
[2019-08-29 19:18] LABS: APPEARANCE,URINE CLEAR (CLEAR); BILIRUBIN,URINE NEGATIVE (NEGATIVE); BLOOD, URINE NEGATIVE (NEGATIVE); COLOR,URINE YELLOW (YELLOW); LEUKOCYTE ESTERASE ,URINE NEGATIVE (NEGATIVE); NITRITE, URINE NEGATIVE (NEGATIVE); PH,URINE 5.5 (5.0-9.0); UGLUCOSE NEGATIVE (NEGATIVE)
--- NOTE | 2019-08-29 19:30 | NUR ---
TO BED #11 AMBULATORY
[2019-08-29] MEDS ORDERED: NACL 0.9% 1,000 ML IV SCH (19:47)
[2019-08-29] MEDS ORDERED: MORPHINE SULFATE 2 MG/ML SYR IVP ONE (19:50)
[2019-08-29] MEDS ORDERED: ONDANSETRON 4 MG/2 ML VIAL IVP ONE (19:50)
--- NOTE | 2019-08-29 20:20 | NUR ---
49 Y/O F PRESENTS TO ED WTIH C/O MID ABD PAIN/BURNING AND N/V STARTING TODAY AT 1400. PT REPORTS 5 EPISODES OF NON BLOODY VOMITING AT HOME. DENIES FEVER, DIARRHEA, SICK CONTACTS, HEMATURIA, FLANK/BACK PAIN, AND DYSURIA. PT SELF MEDICATED WITH NORCO AT 1500 WITH NO RELIEF. MID ABDOMEN MILD TENDERNESS. BOWEL SOUNDS PRESENT [id number]. BED IN LOWEST POSTION. WILL CONTINUE TO MONITOR.
[2019-08-29 20:44] LABS: PROTHROMBIN TIME 9.5 secs (10.8-13.4)
--- NOTE | 2019-08-29 21:40 | NUR ---
PT HAS ITCHING TO RT WRIST S/P ADMINISTRATION OF MORPHINE AND ZOFRAN. DR. NORTH MADE AWARE.
[2019-08-29] MEDS ORDERED: diphenhydrAMINE 50 MG/ML VIAL IVP ONE (21:50)
[2019-08-29 22:51] VITALS: BP 121/78
--- NOTE | 2019-08-29 22:51 | NUR ---
Patient discharged with v/s stable. Written and verbal after care instructions given and explained. Patient alert, oriented and verbalized understanding of instructions. Ambulatory with steady gait. All questions addressed prior to discharge. ID band removed. Patient advised to follow up with PMD. Rx of ZOFRAN ODT, TRAMADOL 50 MG given. Patient educated on indication of medication including possible reaction and side effects. Opportunity to ask questions provided and answered.
== END 2019-08-29 22:51 | disposition home or self-care (01) ==
LOC: MED 17:41
DX: K46.9 Unspecified abdominal hernia without obstruction or gangrene (principal); R11.2 Nausea with vomiting, unspecified; E66.9 Obesity, unspecified; K21.9 Gastro-esophageal reflux disease without esophagitis; I10 Essential (primary) hypertension; Z87.448 Personal history of other diseases of urinary system; Z94.0 Kidney transplant status; Z79.899 Other long term (current) drug therapy; Z91.041 Radiographic dye allergy status
CPT/HCPCS: 36415; 71045; 74176; 80053; 81003; 81025; 83605; 83690; 83880; 84484; 85025; 85610; 85730; 87040; 87086; 93005; 96361; 96374; 96375; 99284; J1200; J2270; J2405; J7030

== ENCOUNTER 2019-09-02 16:51 | Emergency (ER) | payer BC, MEDICAID ==
[~2019-09-02] VITALS: Ht 162.6 cm; Wt 100.7 kg
[2019-09-02 17:00] VITALS: BP 131/78
[2019-09-02] MEDS ORDERED: KETOROLAC 60 MG/2 ML VIAL IM ONE (17:25)
[2019-09-02] MEDS ORDERED: DICYCLOMINE HCL LIQUID 20 MG, ALUMINUM HYD/MAG/SIMETHICONE 30 ML, LIDOCAINE VISCOUS 2% ... PO ONE ×3 (17:50)
[2019-09-02] MEDS ORDERED: ONDANSETRON 4 MG ODT PO ONE (17:50)
[2019-09-02] MEDS ORDERED: MORPHINE SULFATE 4 MG/ML SYR IM ONE (17:50)
[2019-09-02] MEDS ORDERED: MORPHINE SULFATE 4 MG/ML SYR IVP ONE (18:15)
[2019-09-02] MEDS ORDERED: diphenhydrAMINE 50 MG CAP PO ONE (18:30)
[2019-09-02 19:15] VITALS: BP 114/72
== END 2019-09-02 19:15 | disposition home or self-care (01) ==
LOC: MED 16:51
DX: K44.9 Diaphragmatic hernia without obstruction or gangrene (principal); R11.2 Nausea with vomiting, unspecified; R50.9 Fever, unspecified; K21.9 Gastro-esophageal reflux disease without esophagitis; I10 Essential (primary) hypertension; Z90.49 Acquired absence of other specified parts of digestive tract; Z79.899 Other long term (current) drug therapy; Z88.5 Allergy status to narcotic agent; Z90.710 Acquired absence of both cervix and uterus; Z98.890 Other specified postprocedural states
CPT/HCPCS: 81002; 96372; 96374; 99284; J1885; J2270; Q0162; Q0163

== ENCOUNTER 2019-09-19 21:23 | Emergency (ER) | payer BC, MEDICAID ==
[~2019-09-19] VITALS: Ht 162.6 cm; Wt 98.9 kg
[2019-09-19 21:51] VITALS: BP 137/89
--- NOTE | 2019-09-19 21:56 | NUR ---
PT TO HECTOR, VSS, URINE SAMPLE PROVIDED.
--- NOTE | 2019-09-19 22:48 | NUR ---
PT AMBULATED TO BED 11.
--- NOTE | 2019-09-19 22:50 | NUR ---
49/F PRESENTED TO ED WITH C/O ABD PAIN FOR PAST 3 MONTHS D/T HERNIA BUT WORSENING THE PAST 2 DAYS W/ N/V/D. NO FEVER. VSS. PT STATES SHE HAS KIKI W/ SURGEON ON Oct BUT WAS TOLD TO COME TO ER FOR WORSENING PAIN. 8/10 CRAMPING RAD TO BACK. PMH KIDNEY TRANSPLANT, GERD, LUPUS RX DENIES
[2019-09-19 23:22] LABS: APPEARANCE,URINE CLEAR (CLEAR); BILIRUBIN,URINE NEGATIVE (NEGATIVE); BLOOD, URINE NEGATIVE (NEGATIVE); COLOR,URINE YELLOW (YELLOW); LEUKOCYTE ESTERASE ,URINE NEGATIVE (NEGATIVE); NITRITE, URINE NEGATIVE (NEGATIVE); UGLUCOSE NEGATIVE (NEGATIVE)
[2019-09-19 23:26] LABS: BASOPHILS % (AUTO) 0.6 % (0.0-2.0); EOSINOPHILS % (AUTO) 0.5 % (0.0-4.0); HEMATOCRIT 39.2 % (36-48); HEMOGLOBIN 12.8 g/dL (12.0-16.0); LYMPHOCYTES # (AUTO) 1.2 K/uL (2.5-16.5); MEAN CORPUSCULAR HEMOGLOBIN 30 pg (27-31); MEAN CORPUSCULAR HGB CONC 33 g/dL (33-37); MEAN CORPUSCULAR VOLUME 90.9 fL (80-94); MONOCYTES # (AUTO) 0.9 K/uL (0.8-1.0); MONOCYTES % (AUTO) 10.7 % (1.7-9.3); NEUTROPHILS # (AUTO) 6.1 K/uL (1.8-7.7); NEUTROPHILS % (AUTO) 74.2 % (42.2-75.2); PLATELET COUNT (AUTO) 199 K/uL (140-450); RED BLOOD CELL COUNT(AUTO) 4.31 MIL/uL (4.20-5.40); RED CELL DISTRIBUTION WIDTH 14.3 % (11.6-13.7); WHITE BLOOD COUNT (AUTO) 8.3 K/uL (4.8-10.8)
[2019-09-19 23:36] LABS: ANION GAP 14.6 (8-16); CARBON DIOXIDE 24.4 mmol/L (21-32); CREATININE 0.8 mg/dL (0.6-1.3)
[2019-09-19 23:42] LABS: ALBUMIN 3.7 g/dL (3.4-5.0); TOTAL BILIRUBIN 0.3 mg/dL (0.0-1.0)
--- NOTE | 2019-09-20 00:23 | NUR ---
PT REFUSES CT BECUASE SHE STATES THAT "IT'S TOO MUCH RADIATION, I JUST GOT A CT 3 WEEKS AGO". WILL NOTIFY ERMD.
--- NOTE | 2019-09-20 01:30 | NUR ---
PT RESTING IN BED. NO COMPLAINTS AT THIS TIME. VSS. WILL CONTINUE TO MONITOR.
[2019-09-20] MEDS ORDERED: ONDANSETRON 4 MG ODT PO ONE (02:45)
[2019-09-20] MEDS ORDERED: MORPHINE TAB ER 15 MG TABER PO STA (02:56)
--- NOTE | 2019-09-20 03:00 | NUR ---
PT REQUESTS MORPHINE IVP. STATES SHE ISN'T ALLERGIC TO MORPHINE. SAYS "I WANT THE PAIN TO GO AWAY RIGHT NOW". "I WANT TO SPEAK TO THE DOCTOR SO I CAN GET SOMETHING STRONGER". MADE ERMD AWARE. ERMJericho SAYS HE WILL SPEAK TO PT PROMPTLY.
--- NOTE | 2019-09-20 03:17 | NUR ---
PT REFUSED MORPHINE PO. PT REQUESTED MORPHINE IVP. ERMD INFORMED. ERMD EDUCATED ON MEDICATIONS ORDERED AND PRESCRIBED.
[2019-09-20 03:18] VITALS: BP 130/84
--- NOTE | 2019-09-20 03:18 | NUR ---
Patient discharged with v/s stable. Written and verbal after care instructions given and explained. Patient alert, oriented and verbalized understanding of instructions. Ambulatory with steady gait. All questions addressed prior to discharge. ID band removed. Patient advised to follow up with PMD. Rx of norco zofran given. Patient educated on indication of medication including possible reaction and side effects. Opportunity to ask questions provided and answered.
== END 2019-09-20 03:18 | disposition home or self-care (01) ==
LOC: MED 21:23
DX: K44.9 Diaphragmatic hernia without obstruction or gangrene (principal); G89.29 Other chronic pain; R11.2 Nausea with vomiting, unspecified; K21.9 Gastro-esophageal reflux disease without esophagitis; I10 Essential (primary) hypertension; Z98.890 Other specified postprocedural states; Z79.899 Other long term (current) drug therapy; Z88.5 Allergy status to narcotic agent
CPT/HCPCS: 36415; 80053; 81003; 81025; 82150; 83690; 85025; 99283; Q0162

== ENCOUNTER 2019-11-25 00:32 | Emergency (ER) | payer BC, MEDICAID ==
[~2019-11-25] VITALS: Ht 162.6 cm; Wt 89.4 kg
[2019-11-25 00:40] VITALS: BP 166/90
--- NOTE | 2019-11-25 00:40 | NUR ---
TO BED # 10 AMBULATORY
[2019-11-25] MEDS ORDERED: MORPHINE SULFATE 4 MG/ML SYR IVP ONE (01:05)
[2019-11-25] MEDS ORDERED: diphenhydrAMINE 50 MG/ML VIAL IVP ONE (01:05)
--- NOTE | 2019-11-25 01:05 | NUR ---
49 Y/O FEMALE C/O INCREASING ABD PAIN TODAY. PT STATES SHE HAS HERNIA AND CONSTANT 4/10 PAIN, BUT TODAY INCREASING TO 10/10 SHARP PAIN. BOWEL SOUNDS PRESENT X 4 QUAD. PT GUARDING ABD. DENIES VOMTIING/DIARRHEA. DENIES FEVER. RR EVEN AND UNLABORED. PT SITTING UPRIGHT IN BED POSITIONED FOR COMFORT. DAUGHTER AT BEDSIDE. VSS MEDHX: LUPUS, HERNIA ALLERGIES: DENIES
--- NOTE | 2019-11-25 03:40 | NUR ---
PATIENT IS RESTING WITH EYES CLOSED AT THIS TIME. DAUGHTER AT BEDSIDE. NO PAIN AT THIS TIME. WILL CONTINUE TO MONITOR.
[2019-11-25 04:00] VITALS: BP 143/67
--- NOTE | 2019-11-25 04:00 | NUR ---
Patient discharged with v/s stable. Written and verbal after care instructions given and explained. Patient alert, oriented and verbalized understanding of instructions. Ambulatory with steady gait. All questions addressed prior to discharge. ID band removed. Opportunity to ask questions provided and answered. DISCHARGED BY DR. TOLBERT.
== END 2019-11-25 04:00 | disposition home or self-care (01) ==
LOC: MED 00:32
DX: K43.9 Ventral hernia without obstruction or gangrene (principal); K21.9 Gastro-esophageal reflux disease without esophagitis; I10 Essential (primary) hypertension; Z98.890 Other specified postprocedural states; Z79.899 Other long term (current) drug therapy; Z88.5 Allergy status to narcotic agent
CPT/HCPCS: 74176; 96374; 96375; 99284; J1200; J2270

== ENCOUNTER 2019-12-05 21:09 | Emergency (ER) | payer BC, MEDICAID ==
[~2019-12-05] VITALS: Ht 162.6 cm; Wt 95.3 kg
[2019-12-05 21:35] VITALS: BP 113/80
--- NOTE | 2019-12-05 22:55 | NUR ---
PT ALSO C/O BURNING DURING URINATION, URINATION FREQUENCY/ URGENCY. URINE SAMPLE PROVIDED
--- NOTE | 2019-12-05 22:55 | NUR ---
49 Y/O FEMALE PRESENTS WITH EPIGASTRIC 10/10 SHARP PAIN RADIATING TO BACK BEGINNNING AT 1800. N/V/D PRESENT, X4 EMESIS SINCE BEING IN THE ER. BOWEL SOUNDS NORMOACTIVE IN ALL QUADRANTS. ABD SOFT/ TENDER. DENIES SOB/CHEST PAIN. LUNG SOUNDS CLEAR IN BILAT LOBES. CAP REFILL <3. AAOX3. SKIN COOL, DRY. NO FEVER PRESENT AT THIS TIME. PMH: LUPUS, RIGHT KIDNEY TRANSPLANT MED: TRACOLIMUS, PREDNISONE, CARAFE, AMLODIPINE
[2019-12-05] MEDS ORDERED: ONDANSETRON 4 MG/2 ML VIAL IVP ONE (23:15)
[2019-12-05] MEDS ORDERED: DICYCLOMINE HCL LIQUID 20 MG, ALUMINUM HYD/MAG/SIMETHICONE 30 ML, LIDOCAINE VISCOUS 2% ... PO ONE ×3 (23:15)
[2019-12-05] MEDS ORDERED: MORPHINE SULFATE 4 MG/ML SYR IVP ONE (23:15)
[2019-12-05] MEDS ORDERED: DICYCLOMINE HCL LIQUID 10 MG/5 ML UDC ONE (23:19)
[2019-12-05] MEDS ORDERED: LIDOCAINE VISCOUS 2% 20 ML UDC ONE (23:19)
[2019-12-05] MEDS ORDERED: ALUMINUM HYD/MAG/SIMETHICONE 30 ML UDC ONE (23:19)
--- NOTE | 2019-12-05 23:46 | NUR ---
PT TAKEN TO CT AND XRAY
--- NOTE | 2019-12-06 00:06 | NUR ---
PT IS BACK FROM CT
[2019-12-06 00:09] LABS: BASOPHILS % (AUTO) 0.4 % (0.0-2.0); EOSINOPHILS % (AUTO) 0.7 % (0.0-4.0); HEMATOCRIT 39.3 % (36-48); HEMOGLOBIN 12.7 g/dL (12.0-16.0); LYMPHOCYTES # (AUTO) 1.2 K/uL (2.5-16.5); LYMPHOCYTES % (AUTO) 16.9 % (20.5-51.1); MEAN CORPUSCULAR HEMOGLOBIN 29 pg (27-31); MEAN CORPUSCULAR HGB CONC 32 g/dL (33-37); MEAN CORPUSCULAR VOLUME 90.6 fL (80-94); MONOCYTES # (AUTO) 0.8 K/uL (0.8-1.0); MONOCYTES % (AUTO) 12.5 % (1.7-9.3); NEUTROPHILS # (AUTO) 4.7 K/uL (1.8-7.7); NEUTROPHILS % (AUTO) 69.5 % (42.2-75.2); PLATELET COUNT (AUTO) 223 K/uL (140-450); RED BLOOD CELL COUNT(AUTO) 4.33 MIL/uL (4.20-5.40); WHITE BLOOD COUNT (AUTO) 6.8 K/uL (4.8-10.8)
[2019-12-06 00:26] LABS: APPEARANCE,URINE CLEAR (CLEAR); BILIRUBIN,URINE NEGATIVE (NEGATIVE); BLOOD, URINE TRACE-I (NEGATIVE); COLOR,URINE YELLOW (YELLOW); LEUKOCYTE ESTERASE ,URINE NEGATIVE (NEGATIVE); NITRITE, URINE NEGATIVE (NEGATIVE); UGLUCOSE NEGATIVE (NEGATIVE)
[2019-12-06 00:33] LABS: ALBUMIN 3.4 g/dL (3.4-5.0); ANION GAP 11.4 (8-16); CARBON DIOXIDE 26.6 mmol/L (21-32); CREATININE 0.9 mg/dL (0.6-1.3); TOTAL BILIRUBIN 0.2 mg/dL (0.0-1.0)
[2019-12-06 00:37] LABS: RBC,URINE 0-5 /HPF (0-5)
[2019-12-06 00:38] LABS: WBC,URINE 16-25 (MOD) /HPF (0-5)
--- NOTE | 2019-12-06 02:40 | NUR ---
PT IN BED SLEEPING. EQUAL CHEST RISE AND FALL.
[2019-12-06] MEDS ORDERED: DICYCLOMINE HCL LIQUID 20 MG, ALUMINUM HYD/MAG/SIMETHICONE 30 ML, LIDOCAINE VISCOUS 2% ... PO ONE ×3 (05:30)
[2019-12-06] MEDS ORDERED: ALUMINUM HYD/MAG/SIMETHICONE 30 ML UDC ONE (05:31)
[2019-12-06] MEDS ORDERED: LIDOCAINE VISCOUS 2% 20 ML UDC ONE (05:31)
[2019-12-06] MEDS ORDERED: DICYCLOMINE HCL LIQUID 10 MG/5 ML UDC ONE (05:31)
[2019-12-06 05:51] VITALS: BP 120/79
== END 2019-12-06 05:51 | disposition home or self-care (01) ==
LOC: MED 21:09
DX: K44.9 Diaphragmatic hernia without obstruction or gangrene (principal); R10.13 Epigastric pain; R11.10 Vomiting, unspecified; K21.9 Gastro-esophageal reflux disease without esophagitis; I10 Essential (primary) hypertension; Z90.49 Acquired absence of other specified parts of digestive tract; Z98.890 Other specified postprocedural states; Z79.899 Other long term (current) drug therapy; Z88.5 Allergy status to narcotic agent
CPT/HCPCS: 36415; 74022; 74150; 80053; 81001; 81025; 82150; 83690; 85025; 96374; 96375; 99284; J2270; J2405; Q0163

== ENCOUNTER 2020-01-02 19:28 | Emergency (ER) | payer BC, MEDICAID ==
[~2020-01-02] VITALS: Ht 162.6 cm; Wt 97.7 kg
[2020-01-02 19:49] VITALS: BP 118/65
--- NOTE | 2020-01-02 20:00 | NUR ---
PT AMBULATED TO ER BED 10
--- NOTE | 2020-01-02 20:08 | NUR ---
C/O INTERMITENT CRAMPING ABD PAIN RADIATING TO ENTIRE ABD AND BURNING WITH URINATION. + DIARRHEA. HERNIA REPAIR SURGERY 12/19/19. ABDOMEN SOFT AND ROUND; ACTIVE BOWEL SOUNDS PAIN IS A 10/10 PAIN THAT STARTS IN THE LOWER ABDOMEN RADIATING TO THE BACK BILATERALLY. ERMD MADE AWARE OF STATUS. SIDE RAILSX1. WILL CONTINUE TO MONITOR. PLACED ON MONITOR. PMH:GALLBLADDER, HYSTERCTOMY; CLOTS; RENAL TRANSPLANT (2017) GASTRITIS RX:SEE MED REC. ALLERGIES: MORPHINE
[2020-01-02 21:14] LABS: BASOPHILS # (AUTO) 0.1 K/uL (0.00-0.22); BASOPHILS % (AUTO) 0.8 % (0.0-2.0); EOSINOPHILS % (AUTO) 0.5 % (0.0-4.0); HEMATOCRIT 39.5 % (36-48); HEMOGLOBIN 13.5 g/dL (12.0-16.0); LYMPHOCYTES % (AUTO) 13.7 % (20.5-51.1); MEAN CORPUSCULAR HEMOGLOBIN 30 pg (27-31); MEAN CORPUSCULAR HGB CONC 34 g/dL (33-37); MEAN CORPUSCULAR VOLUME 86.8 fL (80-94); MONOCYTES # (AUTO) 0.6 K/uL (0.8-1.0); MONOCYTES % (AUTO) 8.1 % (1.7-9.3); NEUTROPHILS # (AUTO) 5.9 K/uL (1.8-7.7); NEUTROPHILS % (AUTO) 76.9 % (42.2-75.2); PLATELET COUNT (AUTO) 253 K/uL (140-450); RED BLOOD CELL COUNT(AUTO) 4.54 MIL/uL (4.20-5.40); RED CELL DISTRIBUTION WIDTH 14.3 % (11.6-13.7); WHITE BLOOD COUNT (AUTO) 7.6 K/uL (4.8-10.8)
[2020-01-02] MEDS: MORPHINE SULFATE 4 MG/ML SYR IVP ONE (21:17)
--- NOTE | 2020-01-02 21:17 | NUR ---
PLACED RIGHT HAND IV 24 GAUGE; ADMINISTERED 4MG MORPHINE ON 100ML NORMAL SALINE PER DOCTOR'S ORDER FOR PAIN. Addendum: 01/02/20 at 2 by JOSÉ MIGUEL PER , "PATIENT SAYS SHE GETS FLUSHED WHEN RECEIVING MORPHINE, BUT HAS NO ALLERGY TO IT".
[2020-01-02] MEDS: diphenhydrAMINE 50 MG CAP PO ONE (21:18)
[2020-01-02 21:21] LABS: APPEARANCE,URINE CLEAR (CLEAR); BILIRUBIN,URINE NEGATIVE (NEGATIVE); BLOOD, URINE NEGATIVE (NEGATIVE); COLOR,URINE YELLOW (YELLOW); LEUKOCYTE ESTERASE ,URINE 1+ (NEGATIVE); NITRITE, URINE NEGATIVE (NEGATIVE); PH,URINE 5.5 (5.0-9.0); UGLUCOSE NEGATIVE (NEGATIVE)
[2020-01-02 21:22] LABS: ANION GAP 14.9 (8-16); CARBON DIOXIDE 24.9 mmol/L (21-32); CREATININE 1.1 mg/dL (0.6-1.3); POTASSIUM 3.8 mmol/L (3.5-5.1)
[2020-01-02 21:28] LABS: ALBUMIN 3.8 g/dL (3.4-5.0); TOTAL BILIRUBIN 0.5 mg/dL (0.0-1.0)
[2020-01-02 21:33] LABS: RBC,URINE NONE SEEN /HPF (0-5)
[2020-01-02 21:34] LABS: TRICHOMONAS,URINE None Seen /HPF (None Seen); YEAST,URINE None Seen /HPF (None Seen)
--- NOTE | 2020-01-02 21:57 | NUR ---
PT STATES SHE WANTS TO LEAVE AND GO TO THE SURGEON WHO COMPLETED HER SURGERY [address] MARTIN NOTIFIED, PER DR MARTIN PT OKAY TO LEAVE WITHOUT PAPERWORK. VSS. IV REMOVED, CATHETER INTACT.
[2020-01-02 21:59] VITALS: BP 110/73
== END 2020-01-02 21:57 | disposition left against medical advice (07) ==
LOC: MED 19:28
DX: R10.9 Unspecified abdominal pain (principal); R19.7 Diarrhea, unspecified; K21.9 Gastro-esophageal reflux disease without esophagitis; I10 Essential (primary) hypertension; Z87.448 Personal history of other diseases of urinary system; Z88.5 Allergy status to narcotic agent; Z79.899 Other long term (current) drug therapy; Z98.890 Other specified postprocedural states; Z94.0 Kidney transplant status
CPT/HCPCS: 36415; 80053; 81001; 82150; 83690; 84703; 85025; 87086; 96374; 99283; J2270; Q0163

== ENCOUNTER 2020-01-08 22:42 | Emergency (ER) | payer BC, MEDICAID ==
[~2020-01-08] VITALS: Ht 162.6 cm; Wt 85.7 kg
[2020-01-08 22:45] VITALS: BP 131/82
--- NOTE | 2020-01-08 22:48 | NUR ---
TO LOBBY A/W BED AMBULATORY
--- NOTE | 2020-01-08 22:50 | NUR ---
EKG PERFORMED IN TRIAGE ROOM WITH RN PRESENT
--- NOTE | 2020-01-09 01:13 | NUR ---
PT AMBULATED TO BED 3
--- NOTE | 2020-01-09 01:20 | NUR ---
FIRST CONTACT WITH PT. ANSWERING QUESTIONS WITH DR. TOLBERT. SITTING IN RUVALCABA'S. SKIN NORMAL FOR ETHNICITY, DRY, WARM. BREATHING EVEN, UNLABORED. A/O X 4. AMBULATES TO RR WITH STEADY GAIT TO COLLECT URINE.
[2020-01-09] MEDS ORDERED: NACL 0.9% 1,000 ML IV ONE (01:27)
[2020-01-09 02:12] LABS: BASOPHILS % (AUTO) 0.6 % (0.0-2.0); EOSINOPHILS # (AUTO) 0.1 K/uL (0-0.4); EOSINOPHILS % (AUTO) 1.3 % (0.0-4.0); HEMATOCRIT 40.1 % (36-48); HEMOGLOBIN 12.9 g/dL (12.0-16.0); LYMPHOCYTES # (AUTO) 1.3 K/uL (2.5-16.5); LYMPHOCYTES % (AUTO) 19.7 % (20.5-51.1); MEAN CORPUSCULAR HEMOGLOBIN 29 pg (27-31); MEAN CORPUSCULAR HGB CONC 32 g/dL (33-37); MONOCYTES # (AUTO) 0.8 K/uL (0.8-1.0); MONOCYTES % (AUTO) 11.6 % (1.7-9.3); NEUTROPHILS # (AUTO) 4.5 K/uL (1.8-7.7); NEUTROPHILS % (AUTO) 66.8 % (42.2-75.2); PLATELET COUNT (AUTO) 215 K/uL (140-450); RED BLOOD CELL COUNT(AUTO) 4.41 MIL/uL (4.20-5.40); RED CELL DISTRIBUTION WIDTH 14.9 % (11.6-13.7); WHITE BLOOD COUNT (AUTO) 6.8 K/uL (4.8-10.8)
[2020-01-09] MEDS ORDERED: KETOROLAC 30 MG/ML VIAL IVP ONE (03:20)
--- NOTE | 2020-01-09 03:29 | NUR ---
MEDICATED WITH 30 MG IVP TORADOL FOR 8 CHEST/ABD PAIN. WILL REASSESS.
--- NOTE | 2020-01-09 03:45 | NUR ---
PT LYING IN BED WITH EYES CLOSED. VSS. RESPIRATIONS EVEN, UNLABORED. AROUSABLE TO VERBAL STIMULI. PT REPORTS NO PAIN RELIEF. STATES 8/[address] TOLBERT MADE AWARE.
[2020-01-09 03:57] LABS: POTASSIUM 3.9 mmol/L (3.5-5.1)
[2020-01-09 03:58] LABS: ANION GAP 14.5 (8-16); CARBON DIOXIDE 25.4 mmol/L (21-32)
[2020-01-09 03:59] LABS: CREATININE 0.9 mg/dL (0.6-1.3)
[2020-01-09 04:00] LABS: TOTAL BILIRUBIN 0.3 mg/dL (0.0-1.0)
[2020-01-09 04:01] LABS: ALBUMIN 3.9 g/dL (3.4-5.0)
[2020-01-09 04:10] LABS: APPEARANCE,URINE CLEAR (CLEAR); BILIRUBIN,URINE NEGATIVE (NEGATIVE); BLOOD, URINE NEGATIVE (NEGATIVE); COLOR,URINE YELLOW (YELLOW); LEUKOCYTE ESTERASE ,URINE NEGATIVE (NEGATIVE); NITRITE, URINE NEGATIVE (NEGATIVE); PH,URINE 5.5 (5.0-9.0); UGLUCOSE NEGATIVE (NEGATIVE)
[2020-01-09] MEDS ORDERED: diphenhydrAMINE 50 MG/ML VIAL IVP ONE (04:50)
[2020-01-09] MEDS ORDERED: MORPHINE SULFATE 4 MG/ML SYR IVP ONE (04:50)
--- NOTE | 2020-01-09 05:10 | NUR ---
medicated with 4 mg ivp morphine for 10/10 pain and 25 mg ivp benadryl for itching. will reassess.
--- NOTE | 2020-01-09 05:30 | NUR ---
pt reports pain relief; 2/10. resting comfortably with eyes closed. respirations even, unlabored. no complaints at this time.
[2020-01-09 06:48] VITALS: BP 112/65
--- NOTE | 2020-01-09 06:48 | NUR ---
Patient discharged with v/s stable. Written and verbal after care instructions given and explained. Patient verbalized understanding. Ambulatory with steady gait. All questions addressed prior to discharge. Advised to follow up with PMD.
== END 2020-01-09 06:42 | disposition home or self-care (01) ==
LOC: MED 22:42
DX: R07.89 Other chest pain (principal); F11.229 Opioid dependence with intoxication, unspecified; K21.9 Gastro-esophageal reflux disease without esophagitis; I10 Essential (primary) hypertension; Z94.0 Kidney transplant status; Z98.890 Other specified postprocedural states; Z79.899 Other long term (current) drug therapy
CPT/HCPCS: 36415; 71045; 74176; 80053; 81003; 83605; 85025; 85379; 87040; 93005; 96361; 96374; 96375; 99285; J1200; J1885; J2270; Q0092

== ENCOUNTER 2020-04-25 01:15 | Emergency (ER) | payer BC, MEDICAID ==
[~2020-04-25] VITALS: Ht 160 cm; Wt 104.3 kg
[2020-04-25 01:23] VITALS: BP 128/86
--- NOTE | 2020-04-25 01:30 | NUR ---
C/O 9/10 STERNAL CHEST PAIN THAT IS RADIATING TO RT SHOULDER AND UPPER BACK. DENIES SOB/COUGH. HEART SOUNDS S1S2 PRESENT. LUNG SOUNDS CLEAR ALL THROUGHOUT. +SOB WITH EXERTION. EQUAL CHEST RISE AND FALL. VSS. DENIES ANY COUGH, FEVER, V, D, OR BLOOD IN STOOL. CHEST PAIN THAT RADIATES TO RT SHOULDER AND DESCRIBES PAIN PRESSURE. RATES PAIN 9/10. +NAUSEA. ABD IS ROUND, SOFT, NONTENDER, ACTIVE BS. NO USE OF ACCESSORY MUSCLE. A&OX4. PMHX: LUPUS NEPHRITIS, RT KIDNEY TRANSPLANT, HYSTERECTOMY, HTN, HIETAL HERNIA REPAIR. CONTRAST DYE ALLERGY NEGATIVE FOR COVID SCREEN WEARING MASK
[2020-04-25] MEDS ORDERED: NACL 0.9% 500 ML IV ONE (01:40)
[2020-04-25] MEDS ORDERED: ONDANSETRON 4 MG/2 ML VIAL IVP ONE (01:40)
[2020-04-25] MEDS ORDERED: MORPHINE SULFATE 4 MG/ML SYR IVP ONE (01:40)
--- NOTE | 2020-04-25 01:40 | NUR ---
EKG PERFORMED AT BEDSIDE
--- NOTE | 2020-04-25 01:43 | NUR ---
XR AND LAB AT BEDSIDE.
[2020-04-25 02:20] LABS: EOSINOPHILS # (AUTO) 0.1 K/uL (0-0.4); EOSINOPHILS % (AUTO) 0.8 % (0.0-4.0); HEMOGLOBIN 13.1 g/dL (12.0-16.0); LYMPHOCYTES # (AUTO) 1.8 K/uL (2.5-16.5); MEAN CORPUSCULAR HEMOGLOBIN 30 pg (27-31); MEAN CORPUSCULAR HGB CONC 33 g/dL (33-37); MEAN CORPUSCULAR VOLUME 91.8 fL (80-94); MONOCYTES # (AUTO) 0.8 K/uL (0.8-1.0); MONOCYTES % (AUTO) 9.9 % (1.7-9.3); NEUTROPHILS # (AUTO) 5.5 K/uL (1.8-7.7); NEUTROPHILS % (AUTO) 67.3 % (42.2-75.2); PLATELET COUNT (AUTO) 237 K/uL (140-450); RED BLOOD CELL COUNT(AUTO) 4.36 MIL/uL (4.20-5.40); RED CELL DISTRIBUTION WIDTH 14.4 % (11.6-13.7); WHITE BLOOD COUNT (AUTO) 8.2 K/uL (4.8-10.8)
[2020-04-25 02:32] LABS: ANION GAP 14.3 (8-16); CARBON DIOXIDE 24.8 mmol/L (21-32); POTASSIUM 4.1 mmol/L (3.5-5.1)
[2020-04-25 02:38] LABS: ALBUMIN 3.4 g/dL (3.4-5.0); TOTAL BILIRUBIN 0.2 mg/dL (0.0-1.0)
[2020-04-25] MEDS ORDERED: LORazepam 2 MG/ML VIAL IVP ONE (02:50)
[2020-04-25 03:12] VITALS: BP 117/74
== END 2020-04-25 03:12 | disposition home or self-care (01) ==
LOC: MED 01:15
DX: F41.9 Anxiety disorder, unspecified (principal); K21.9 Gastro-esophageal reflux disease without esophagitis; I10 Essential (primary) hypertension; Z79.899 Other long term (current) drug therapy; Z90.49 Acquired absence of other specified parts of digestive tract
CPT/HCPCS: 36415; 71045; 80053; 83690; 83880; 84484; 85025; 93005; 96361; 96374; 96375; 99285; J2060; J2270; J2405; J7030; Q0092

== ENCOUNTER 2020-07-14 20:40 | Emergency (ER) | payer BC, MEDICAID ==
[~2020-07-14] VITALS: Ht 160 cm; Wt 108.0 kg
[2020-07-14 21:04] VITALS: BP 153/95
--- NOTE | 2020-07-14 21:09 | NUR ---
ambulated to bed 3 with steady gait.
--- NOTE | 2020-07-14 21:33 | NUR ---
49 Y/O female c/o rlq abdominal pain x 2 weeks. +diarrhea -n/v 05/14 crapming, sharp pain. also c/o L arm swelling and burning upon urination. abd soft non tender. bowel sounds active. lungs sounds cla. skin warm and dry. cap refill less than 2 seconds pmhx: right kidney transplant, lupus on kidneys, hysterectomy allx: Iodine Addendum: 07/14/20 at 2148 by [email or web address] Right arm swelling
--- NOTE | 2020-07-14 21:48 | NUR ---
DR NEWTON AT BEDSIDE EVALUATING PT
--- NOTE | 2020-07-14 22:16 | NUR ---
LAB AT BEDSIDE
[2020-07-14] MEDS ORDERED: ACETAMINOPHEN EXTRA STRENGTH 500 MG TAB PO ONE (22:20)
[2020-07-14] MEDS ORDERED: LORazepam 1 MG TAB PO ONE (22:20)
--- NOTE | 2020-07-14 22:20 | NUR ---
PT C/O OF PAIN AND ANIXETY. PT STATES SHE TAKES LORAZEPAM AT HOME. ERMD MADE AWARE.
[2020-07-14 22:45] LABS: BASOPHILS % (AUTO) 0.4 % (0.0-2.0); EOSINOPHILS % (AUTO) 0.3 % (0.0-4.0); HEMATOCRIT 39.3 % (36-48); LYMPHOCYTES # (AUTO) 1.5 K/uL (2.5-16.5); LYMPHOCYTES % (AUTO) 17.3 % (20.5-51.1); MEAN CORPUSCULAR HEMOGLOBIN 30 pg (27-31); MEAN CORPUSCULAR HGB CONC 33 g/dL (33-37); MEAN CORPUSCULAR VOLUME 91.3 fL (80-94); MONOCYTES # (AUTO) 0.9 K/uL (0.8-1.0); MONOCYTES % (AUTO) 10.3 % (1.7-9.3); NEUTROPHILS # (AUTO) 6.1 K/uL (1.8-7.7); NEUTROPHILS % (AUTO) 71.7 % (42.2-75.2); PLATELET COUNT (AUTO) 219 K/uL (140-450); RED BLOOD CELL COUNT(AUTO) 4.31 MIL/uL (4.20-5.40); RED CELL DISTRIBUTION WIDTH 14.2 % (11.6-13.7); WHITE BLOOD COUNT (AUTO) 8.5 K/uL (4.8-10.8)
[2020-07-14] MEDS ORDERED: HYDROcodone/APAP 10/325 MG 1 TAB TAB PO ONE (22:50)
--- NOTE | 2020-07-14 23:07 | NUR ---
PT TAKEN TO CT SCAN VIA W/C.
[2020-07-14 23:08] LABS: ALBUMIN 3.9 g/dL (3.4-5.0); ANION GAP 16.7 (8-16); CARBON DIOXIDE 22.2 mmol/L (21-32); CREATININE 1.3 mg/dL (0.6-1.3); POTASSIUM 3.9 mmol/L (3.5-5.1); TOTAL BILIRUBIN 0.3 mg/dL (0.0-1.0)
[2020-07-15 00:43] VITALS: BP 153/95
== END 2020-07-15 01:01 | disposition home or self-care (01) ==
LOC: MED 20:40
DX: R10.9 Unspecified abdominal pain (principal); K21.9 Gastro-esophageal reflux disease without esophagitis; I10 Essential (primary) hypertension; N28.9 Disorder of kidney and ureter, unspecified; Z94.0 Kidney transplant status; Z90.711 Acquired absence of uterus with remaining cervical stump; Z88.1 Allergy status to other antibiotic agents
CPT/HCPCS: 36415; 80053; 81002; 81025; 85025; 99284

== ENCOUNTER 2021-07-27 22:52 | Emergency (ER) | payer BC, MEDICAID ==
[~2021-07-27] VITALS: Ht 162.6 cm; Wt 75.7 kg
[~2021-07-27 22:52] MED LIST changes: +AMIT25TA39 PO; -ELA25 PO
[2021-07-27 23:10] VITALS: BP 134/96
--- NOTE | 2021-07-27 23:13 | NUR ---
TO LOBBY A/W BED AMBULATORY
--- NOTE | 2021-07-27 23:47 | NUR ---
PT AMBULATED TO BED #8
--- NOTE | 2021-07-27 23:55 | NUR ---
PATIENT PRESENTS TO ED WITH LOWER ABD PAIN X3D. DENIES N/V/D; SKIN IS PINK/WARM/DRY; AAOX4 WITH EVEN AND STEADY GAIT; LUNGS CLEAR BL; HR EVEN AND REGULAR; PT DENIES ANY FEVER, CP, SOB, OR COUGH AT THIS TIME; PATIENT STATES PAIN OF 6/10 AT THIS TIME; VSS; PATIENT POSITIONED FOR COMFORT; HOB ELEVATED; BEDRAILS UP X2; BED DOWN. ER MD MADE AWARE OF PT STATUS.
[2021-07-28 00:46] LABS: BASOPHILS % (AUTO) 0.3 % (0.0-2.0); EOSINOPHILS # (AUTO) 0.1 K/uL (0-0.4); EOSINOPHILS % (AUTO) 0.7 % (0.0-4.0); HEMATOCRIT 38.4 % (36-48); HEMOGLOBIN 12.7 g/dL (12.0-16.0); LYMPHOCYTES # (AUTO) 1.5 K/uL (2.5-16.5); LYMPHOCYTES % (AUTO) 17.5 % (20.5-51.1); MEAN CORPUSCULAR HEMOGLOBIN 30 pg (27-31); MEAN CORPUSCULAR HGB CONC 33 g/dL (33-37); MEAN CORPUSCULAR VOLUME 91.6 fL (80-94); MONOCYTES # (AUTO) 0.9 K/uL (0.8-1.0); MONOCYTES % (AUTO) 10.7 % (1.7-9.3); NEUTROPHILS # (AUTO) 6.1 K/uL (1.8-7.7); NEUTROPHILS % (AUTO) 70.8 % (42.2-75.2); PLATELET COUNT (AUTO) 210 K/uL (140-450); RED CELL DISTRIBUTION WIDTH 14.5 % (11.6-13.7); WHITE BLOOD COUNT (AUTO) 8.6 K/uL (4.8-10.8)
[2021-07-28 00:54] LABS: APPEARANCE,URINE CLEAR (CLEAR); BILIRUBIN,URINE NEGATIVE (NEGATIVE); BLOOD, URINE NEGATIVE (NEGATIVE); COLOR,URINE YELLOW (YELLOW); LEUKOCYTE ESTERASE ,URINE NEGATIVE (NEGATIVE); NITRITE, URINE NEGATIVE (NEGATIVE); PH,URINE 5.5 (5.0-9.0); UGLUCOSE NEGATIVE (NEGATIVE)
[2021-07-28 01:00] LABS: ALBUMIN 3.5 g/dL (3.4-5.0); ANION GAP 12.7 (8-16); CREATININE 0.8 mg/dL (0.6-1.3); POTASSIUM 3.7 mmol/L (3.5-5.1); TOTAL BILIRUBIN 0.3 mg/dL (0.0-1.0)
[2021-07-28 04:15] VITALS: BP 134/96
== END 2021-07-28 04:16 | disposition home or self-care (01) ==
LOC: MED 22:52
DX: I12.9 Hypertensive chronic kidney disease with stage 1 through stage 4 chronic kidney disease, or unspecified chronic kidney disease (principal); N18.9 Chronic kidney disease, unspecified; Z94.0 Kidney transplant status; Z88.8 Allergy status to other drugs, medicaments and biological substances
CPT/HCPCS: 36415; 80053; 81003; 85025; 87086; 93976; 99284; Q0092

== ENCOUNTER 2021-08-18 22:24 | Emergency (ER) | payer BC, MEDICAID ==
[~2021-08-18] VITALS: Ht 162.6 cm; Wt 104.3 kg
[2021-08-18 22:45] VITALS: BP 138/91
--- NOTE | 2021-08-18 22:48 | NUR ---
TO LOBBY A/W BED AMBULATORY
[2021-08-19] MEDS ORDERED: ACETAMINOPHEN EXTRA STRENGTH 500 MG TAB PO ONE (00:55)
[2021-08-19] MEDS ORDERED: KETOROLAC 30 MG/ML VIAL IM ONE (00:55)
--- NOTE | 2021-08-19 00:55 | NUR ---
PER ADMITTING, PT NO LONGER WANTED TO WAIT TO BE SEEN AND LEFT.
== END 2021-08-19 00:55 | disposition left against medical advice (07) ==
LOC: MED 22:24
DX: Z53.21 Procedure and treatment not carried out due to patient leaving prior to being seen by health care provider (principal); K21.9 Gastro-esophageal reflux disease without esophagitis; I10 Essential (primary) hypertension; Z94.0 Kidney transplant status; Z79.899 Other long term (current) drug therapy; Z88.8 Allergy status to other drugs, medicaments and biological substances

== ENCOUNTER 2021-11-03 01:29 | Emergency (ER) | payer BC, MEDICAID ==
[~2021-11-03] VITALS: Ht 162.6 cm; Wt 106.1 kg
[2021-11-03 02:00] VITALS: BP 116/76
[2021-11-03] MEDS ORDERED: ASPIRIN 325 MG TAB PO ONE (02:10)
[2021-11-03] MEDS ORDERED: NITROGLYCERIN 0.4 MG TAB SL ONE ×2 (02:10→05:51)
[2021-11-03 02:44] LABS: BASOPHILS # (AUTO) 0.1 K/uL (0.00-0.22); BASOPHILS % (AUTO) 0.7 % (0.0-2.0); EOSINOPHILS # (AUTO) 0.1 K/uL (0-0.4); HEMOGLOBIN 13.5 g/dL (12.0-16.0); LYMPHOCYTES # (AUTO) 1.8 K/uL (2.5-16.5); LYMPHOCYTES % (AUTO) 20.1 % (20.5-51.1); MEAN CORPUSCULAR HEMOGLOBIN 30 pg (27-31); MEAN CORPUSCULAR HGB CONC 34 g/dL (33-37); MEAN CORPUSCULAR VOLUME 89.4 fL (80-94); MONOCYTES % (AUTO) 10.9 % (1.7-9.3); NEUTROPHILS # (AUTO) 5.9 K/uL (1.8-7.7); NEUTROPHILS % (AUTO) 67.3 % (42.2-75.2); PLATELET COUNT (AUTO) 268 K/uL (140-450); RED BLOOD CELL COUNT(AUTO) 4.47 MIL/uL (4.20-5.40); WHITE BLOOD COUNT (AUTO) 8.8 K/uL (4.8-10.8)
[2021-11-03 04:04] LABS: ALBUMIN 3.6 g/dL (3.4-5.0); ANION GAP 16.6 (8-16); CARBON DIOXIDE 24.9 mmol/L (21-32); POTASSIUM 3.5 mmol/L (3.5-5.1); TOTAL BILIRUBIN 0.3 mg/dL (0.0-1.0)
[2021-11-03] MEDS ORDERED: ASPIRIN 325 MG TAB ONE (05:51)
--- NOTE | 2021-11-03 07:21 | NUR ---
pt ambulated to bed 11
--- NOTE | 2021-11-03 07:26 | NUR ---
51 Y/O FEMALE C/O CHEST PAIN SINCE YESTERDAY. PT STATES 7/10 CRAMPING PAIN RADIATING TO NECK. WITH NAUSEA AND VOMITING. DENIES ANY DIARRHEA/CONSTIPATION. TOOK TYLENOL WITH NO RELIEF. MEDHX: LUPUS, KIDNEY TRANSPLANT, HTN, HYSTERECTOMY ALLERGY: IODINE
[2021-11-03 08:05] VITALS: BP 132/92
--- NOTE | 2021-11-03 08:05 | NUR ---
Patient discharged with v/s stable. Written and verbal after care instructions given and explained. Patient alert, oriented and verbalized understanding of instructions. Ambulatory with steady gait. All questions addressed prior to discharge. ID band removed. Patient advised to follow up with PMD. Opportunity to ask questions provided and answered.
== END 2021-11-03 08:05 | disposition home or self-care (01) ==
LOC: MED 01:29
DX: R07.9 Chest pain, unspecified (principal); R51.9 Headache, unspecified; R11.2 Nausea with vomiting, unspecified; K21.9 Gastro-esophageal reflux disease without esophagitis; Z88.8 Allergy status to other drugs, medicaments and biological substances; I12.9 Hypertensive chronic kidney disease with stage 1 through stage 4 chronic kidney disease, or unspecified chronic kidney disease; N18.9 Chronic kidney disease, unspecified; Z94.0 Kidney transplant status
CPT/HCPCS: 36415; 71045; 80053; 84484; 85025; 93005; 99285

== ENCOUNTER 2022-08-23 14:32 | Inpatient (IN) | payer BC, MEDICAID ==
[~2022-08-23] VITALS: Ht 172.7 cm; Wt 99.8 kg
[2022-08-23 14:52] VITALS: BP 150/100
--- NOTE | 2022-08-23 14:58 | NUR ---
PT TO BED 08.
[2022-08-23] MEDS ORDERED: MORPHINE SULFATE 4 MG/ML SYR IVP ONE ×2 (15:25→17:00)
[2022-08-23] MEDS ORDERED: NACL 0.9% 1,000 ML IV ONE (15:25)
[2022-08-23 15:40] LABS: BASOPHILS % (AUTO) 0.1 % (0.0-2.0); EOSINOPHILS % (AUTO) 0.1 % (0.0-4.0); HEMATOCRIT 38.7 % (36-48); HEMOGLOBIN 12.9 g/dL (12.0-16.0); LYMPHOCYTES # (AUTO) 0.8 K/uL (2.5-16.5); LYMPHOCYTES % (AUTO) 5.9 % (20.5-51.1); MEAN CORPUSCULAR HEMOGLOBIN 30 pg (27-31); MEAN CORPUSCULAR HGB CONC 33 g/dL (33-37); MEAN CORPUSCULAR VOLUME 89.8 fL (80-94); MONOCYTES # (AUTO) 1.2 K/uL (0.8-1.0); MONOCYTES % (AUTO) 8.7 % (1.7-9.3); NEUTROPHILS # (AUTO) 11.3 K/uL (1.8-7.7); NEUTROPHILS % (AUTO) 85.2 % (42.2-75.2); PLATELET COUNT (AUTO) 178 K/uL (140-450); RED CELL DISTRIBUTION WIDTH 14.2 % (11.6-13.7); WHITE BLOOD COUNT (AUTO) 13.2 K/uL (4.8-10.8)
[2022-08-23 16:00] LABS: ALBUMIN 3.5 g/dL (3.4-5.0); CARBON DIOXIDE 21.5 mmol/L (21-32); POTASSIUM 3.5 mmol/L (3.5-5.1); TOTAL BILIRUBIN 0.6 mg/dL (0.0-1.0)
[2022-08-23] MEDS ORDERED: OMEP40EC24 PO (16:16)
[2022-08-23 16:27] LABS: PROTHROMBIN TIME 10.6 secs (10.8-13.4)
[2022-08-23] MEDS ORDERED: ASPIRIN 325 MG TAB PO ONE (16:35)
--- NOTE | 2022-08-23 17:15 | NUR ---
LAB AT BEDSIDE.
--- NOTE | 2022-08-23 18:25 | NUR ---
RECEIVED REPORT FROM ED NURSE ZHOU FOR CONTINUITY OF CARE. PT IN STABLE CONDITION. PT ARRIVED ON THE UNIT VIA GURNEY AND WAS ABLE TO AMBULATE TO HER BED WITHOUT DIFFICULTY. PT IS A/OX4, BREATHING EVEN, REGULAR, AND SLIGHTLY LABORED ON ROOM AIR. PT IS CONTINENT OF THE BOWEL AND BLADDER, WITH SKIN INTACT, AND HEALED SURGICAL SCARS FROM RECENT HERNIA REPAIR. 18G IV ON RIGHT AC, CLEAN, DRESSING DRY, AND PATENT. PT COMPLAINING OF CHEST PAIN, 6/10, AND DESCRIBED IT HEAVY PRESSURE THAT RADIATES TO HER BACK AND SHOULDER, AND CAUSES SLIGHT SOB.
--- NOTE | 2022-08-23 18:47 | NUR ---
PATIENT TRANSFERRED TO BLAKE Best RN AT BEDSIDE
[2022-08-23] MEDS ORDERED: POTASSIUM CHLORIDE 10 MEQ TABER PO PRN (19:00)
[2022-08-23] MEDS ORDERED: DOCUSATE SODIUM 100 MG GELCAP PO PRN (19:00)
[2022-08-23] MEDS ORDERED: ACETAMINOPHEN 325 MG TAB PO PRN (19:00)
[2022-08-23] MEDS ORDERED: guaiFENesin DM 200/20 MG-10 ML 10 ML UDC PO PRN (19:00)
[2022-08-23] MEDS ORDERED: ZOLPIDEM 5 MG TAB PO PRN (19:00)
[2022-08-23 19:27] LABS: CHOL/HDL RATIO 1.6 (1-4.5); FREE T4 (FREE THYROXINE) 1.31 ng/dL (0.76-1.46); MAGNESIUM 1.3 mg/dL (1.8-2.4); THYROID STIMULATING HORMONE 2.1 uIU/mL (0.34-3.74)
--- NOTE | 2022-08-23 19:35 | NUR ---
ENDORSED PT TO NIGHTSHIFT NURSE NATHANIEL FOR CONTINUITY OF CARE. NOTIFIED DR. WOO OF LOW MAG 1.3 AND PAIN MEDICATIONS. NEW ORDERS PLACED.
[2022-08-23] MEDS ORDERED: MAG SULF 2000 MG/WATER PREMIX 50 ML IV ONE (19:40)
[2022-08-23] MEDS: NACL 0.9% 1,000 ML IV SCH (19:50)
--- NOTE | 2022-08-23 19:58 | NUR ---
REFER TO DR. WOO PT6 IS STILL C/O CHEST PAIN - MORPHINE GIVEN 2 HRS AGO , PT ALSO C/O DIFFICULTY OF BREATHING - HOOK TO O2 BP 145/ 99 , O2 SAT 99 % , RR 18 , + U.O . Addendum: 08/23/22 at 2035 by Sherry Sullivan RN PER DR. WOO JUST CONT. TO GIVE THE MORPHINE q 4 PRN FOR CHEST PAIN , AND CONT. TO MONITOR . AND LET HIS RELIEVER DR. LEMA KNOW ABOUT THIS PT STATUS ONCE DR. LEMA TAKE OVER THE SHIFT .
[2022-08-23 20:00] VITALS: BP 150/100
[2022-08-23] MEDS: METOPROLOL 25 MG TAB PO SCH (20:25)
[2022-08-23 21:03] LABS: APPEARANCE,URINE CLEAR (CLEAR); BILIRUBIN,URINE NEGATIVE (NEGATIVE); BLOOD, URINE NEGATIVE (NEGATIVE); COLOR,URINE YELLOW (YELLOW); LEUKOCYTE ESTERASE ,URINE NEGATIVE (NEGATIVE); NITRITE, URINE NEGATIVE (NEGATIVE); UGLUCOSE NEGATIVE (NEGATIVE)
[2022-08-23 21:12] LABS: BARBITURATE, URINE NEGATIVE ng/ml (NEG <=200); BENZODIAZEPINE, URINE NEGATIVE ng/mL (NEG <=200); CANNABINOID, URINE NEGATIVE ng/mL (NEG <=50); COCAINE, URINE NEGATIVE ng/mL (NEG <=300); OPIATE, URINE POSITIVE ng/mL (NEG <=2000); PHENCYCLIDINE SCREEN,URINE NEGATIVE ng/mL (NEG <=25)
--- NOTE | 2022-08-23 21:18 | NUR ---
C/O PAIN , BP 150/100 , HR 111 , RR 20 , O2 SAT 98 % - WILL MEDICATE .
[2022-08-23] MEDS: MORPHINE SULFATE 2 MG/ML SYR IVP PRN (21:25)
--- NOTE | 2022-08-23 22:32 | NUR ---
STILL C/O CHEST PAIN - PER PT - SHE ALREADY GOT 3 DOSES OF MORPHINE TIV SINCE ADM - BUT THIS MED DOES NOT WORKS -INFORM CHARGE NURSE STEPHANIE - WILL MEDICATE . Addendum: 08/23/22 at 2237 by Sherry Sullivan RN BP 133/ 99 , HR 103 , RR 18 , O2 SAT 98 % .
[2022-08-23] MEDS: NITROGLYCERIN 0.4 MG TAB SL PRN (22:35)
--- NOTE | 2022-08-23 22:37 | NUR ---
BEDSIDE COMMODE PROVIDED , FOR CLOSELY WATCH , CALL LIGHT WITHIN REACH .
--- NOTE | 2022-08-23 22:49 | NUR ---
ASSESS PT 36 MINS AFTER 1ST DOSE OF NITROSTAT SL - PER PT MY CHEST PAIN GONE AWAY .
[2022-08-24] VITALS: BP 133/77
[2022-08-24] MEDS: MYCOPHENOLATE 250 MG CAP PO SCH ×3 (01:42→17:28)
[2022-08-24] MEDS: TACROLIMUS 0.5 MG CAP PO SCH ×3 (01:42→20:19)
--- NOTE | 2022-08-24 03:09 | NUR ---
C/O CHEST PAIN AND HEAD ACHE - BP 137/ 89 , HR 104 , RR 20 O2 SAT 98 % - WILL MEDICATE
[2022-08-24] MEDS: NITROGLYCERIN 0.4 MG TAB SL PRN ×2 (03:10→09:00)
[2022-08-24 04:00] VITALS: BP 150/90
--- NOTE | 2022-08-24 05:00 | NUR ---
PT 'S SAID RELIEVED SPANN AND CHEST PAIN .
[2022-08-24 05:40] LABS: BASOPHILS % (AUTO) 0.1 % (0.0-2.0); EOSINOPHILS % (AUTO) 0.1 % (0.0-4.0); HEMATOCRIT 34.7 % (36-48); HEMOGLOBIN 11.6 g/dL (12.0-16.0); LYMPHOCYTES # (AUTO) 0.9 K/uL (2.5-16.5); LYMPHOCYTES % (AUTO) 6.5 % (20.5-51.1); MEAN CORPUSCULAR HEMOGLOBIN 30 pg (27-31); MEAN CORPUSCULAR HGB CONC 33 g/dL (33-37); MEAN CORPUSCULAR VOLUME 89.6 fL (80-94); MONOCYTES # (AUTO) 1.6 K/uL (0.8-1.0); MONOCYTES % (AUTO) 11.8 % (1.7-9.3); NEUTROPHILS % (AUTO) 81.5 % (42.2-75.2); PLATELET COUNT (AUTO) 169 K/uL (140-450); RED BLOOD CELL COUNT(AUTO) 3.88 MIL/uL (4.20-5.40); RED CELL DISTRIBUTION WIDTH 14.4 % (11.6-13.7); WHITE BLOOD COUNT (AUTO) 13.5 K/uL (4.8-10.8)
--- NOTE | 2022-08-24 06:00 | NUR ---
AWAKE , NO S/SX OF ACUTE DISTRESS NOTED . CALL LIGHT WITHIN REACH .
[2022-08-24 06:29] LABS: ANION GAP 19.2 (8-16); CARBON DIOXIDE 20.4 mmol/L (21-32); CREATININE 0.9 mg/dL (0.6-1.3); POTASSIUM 3.6 mmol/L (3.5-5.1)
--- NOTE | 2022-08-24 07:30 | NUR ---
RECEIVED BEDSIDE REPORT FROM NIGHTSHIFT RICARDO ARMSTRONG FOR CONTINUITY OF CARE. PATIENT IS A&OX4, ON 2L VIA NASAL CANULA. PT HAS A 18G IV ON THE RIGHT AC WHICH ARE PATENT AND INTACT. PT IS RESTING, WITH NO S/S OF DISTRESS.
--- NOTE | 2022-08-24 07:30 | NUR ---
ENDORSED PT STABLE ., CALL LIGHT WITHIN REACH .
[2022-08-24 08:00] VITALS: BP 135/92
[2022-08-24] MEDS: PANTOPRAZOLE 40 MG TABEC PO SCH (08:49)
[2022-08-24] MEDS: ECOTRIN 81 MG TABEC PO SCH (08:49)
[2022-08-24] MEDS: METOPROLOL 25 MG TAB PO SCH ×2 (08:50→20:19)
[2022-08-24] MEDS: lisinopriL 5 MG TAB PO SCH (08:51)
[2022-08-24] MEDS ORDERED: PANTOPRAZOLE 40 MG TABEC PO SCH (09:00)
[2022-08-24] MEDS: MORPHINE SULFATE 2 MG/ML SYR IVP PRN ×3 (09:10→21:45)
[2022-08-24] MEDS ORDERED: AZITHROMYCIN 250 MG TAB PO SCH (11:00)
[2022-08-24] MEDS: NACL 0.9% 1,000 ML IV SCH ×2 (11:40→20:02)
--- NOTE | 2022-08-24 13:02 | NUR ---
PATIENT HAS BEEN SCREENED AND CATEGORIZED MODERATE NUTRITION RISK. PATIENT WILL BE SEEN WITHIN 3-5 DAYS OF ADMISSION. 08/26/2210/24/[address]
--- NOTE | 2022-08-24 14:56 | NUR ---
DISCHARGE PLANNING PATIENT IS A 52-YEAR-OLD FEMALE ADMITTED 0N 08/23/2022 AT THE [facility]/ED DUE TO COMPLAINTS OF CHEST PAIN. PATIENT HAS MEDICAL HISTORY OF GERD, LUPUS AND KIDNEY TRANSPLANT FOR LUPUS RELATED RENAL FAILURE. (PATIENT IS CHINESE SPEAKING ONLY). SW MET WITH PATIENT AT BEDSIDE TO DISCUSS AND GATHER PATIENT'S COLLATERAL INFORMATION. PATIENT WAS ALERT AND AWAKE DURING MEETING WITH SW. PATIENT REPORTED LIVING AT HOME WITH HER THOMAS TREVINO AND ADULT DAUGHTER GENEVIEVE TREVINO AND ADULT SON IN THEIR HOME IN [facility] [place]. PER PATIENT SHE HAS GOOD FAMILY SUPPORT FROM HER FAMILY. PATIENT REPORTED BEEN ACTIVE AND INDEPENDENT AT HOME AND ALSO REPORTED NOT HAVING ADVANCE DIRECTIVES AND WAS NOT INTERESTED ON GETTING INFORMATION FORMS PROVIDED BY SW AT THE TIME OF VISIT. PER PATIENT HER THOMAS TREVINO AND DAUGHTER GENEVIEVE TREVINO ARE HER EMERGENCY CONTACT AND MEDICAL DESICION MAKERS. PATIENT REPORTED NOT HAVING ANY ISSUES WITH MEDICATIONS AND BEEN IN COMPLIANCE WITH HER MEDICATIONS DUE TO HER MEDICAL CONDITIONS. PER PATIENT SHE GETS HER MEDICATIONS FROM THE [facility] IN [place] AND [facility] IN [place] [facility] [facility] [place]. PATIENT REPORTED NOT HAVING OR NEEDING DME AT HOME. PER PATIENT SHE HAS A GOOD RELATIONSHIP WITH HER HEALTH PROVIDER DOCTOR LASHA FORD HERE IN [facility]. PATIENT REPORTED THAT HER LAST VISIT WITH HER DOCTOR WAS ABOUT ONE MONTH AGO. SW EXPLAINED TO PATIENT THE NEED TO FOLLOW UP WITH AN APPOINTMENT WITHIN 5-7 DAYS AFTER HER DC WITH HER PCP. PATIENT AGREED AND STATED THAT SHE WILL MAKE HER OWN APPOINTMENT. PATIENT DECLINED FOR SW TO MAKE HER FOLLOW UP APPOINTMENT WITH PRIMARY DOCTOR AFTER SHE DISCHARGES FROM [facility]. PATIENT STATED THAT HER OR DAUGHTER WILL BE ASSISTING HER WITH TRANSPORTATION BACK HOME WHEN SHE IS READY AND STABLE TO DISCHARGE. SW WILL FOLLOW UP WITH PATIENT NEEDED.
[2022-08-24] MEDS: LORazepam 0.5 MG TAB PO PRN ×2 (15:10→20:19)
[2022-08-24 16:00] VITALS: BP 116/77
[2022-08-24] MEDS ORDERED: ATORVASTATIN 20 MG TAB PO SCH (17:00)
--- NOTE | 2022-08-24 19:20 | NUR ---
ENDORSED PT TO PAINT SUPERVISOR RN MJ FOR CONTINUITY OF CARE. PATIENT IS IN STABLE CONDITION.
--- NOTE | 2022-08-24 19:30 | NUR ---
RECEIVED REPORT ON PATIENT
[2022-08-24 20:00] VITALS: BP 143/90
[2022-08-24] MEDS: HYDROcodone/APAP 7.5/325 MG 1 TAB PO PRN (23:53)
--- NOTE | 2022-08-24 23:57 | NUR ---
PATIENT WITH COMPLAINTS OF LEFT SHOULDER PAIN, DENIES CHEST PAIN ADMINISTERED NORCO PER MD ORDERS
[2022-08-25] VITALS: BP 132/86
[2022-08-25] MEDS: MORPHINE SULFATE 2 MG/ML SYR IVP PRN ×6 (02:34→23:39)
[2022-08-25 04:00] VITALS: BP 125/79
[2022-08-25 05:55] LABS: BASOPHILS % (AUTO) 0.2 % (0.0-2.0); EOSINOPHILS # (AUTO) 0.1 K/uL (0-0.4); EOSINOPHILS % (AUTO) 0.9 % (0.0-4.0); HEMATOCRIT 34.9 % (36-48); HEMOGLOBIN 11.7 g/dL (12.0-16.0); LYMPHOCYTES # (AUTO) 1.3 K/uL (2.5-16.5); LYMPHOCYTES % (AUTO) 17.8 % (20.5-51.1); MEAN CORPUSCULAR HEMOGLOBIN 30 pg (27-31); MEAN CORPUSCULAR HGB CONC 34 g/dL (33-37); MEAN CORPUSCULAR VOLUME 89.4 fL (80-94); MONOCYTES # (AUTO) 0.9 K/uL (0.8-1.0); MONOCYTES % (AUTO) 13.4 % (1.7-9.3); NEUTROPHILS # (AUTO) 4.8 K/uL (1.8-7.7); NEUTROPHILS % (AUTO) 67.7 % (42.2-75.2); PLATELET COUNT (AUTO) 181 K/uL (140-450); RED BLOOD CELL COUNT(AUTO) 3.91 MIL/uL (4.20-5.40); RED CELL DISTRIBUTION WIDTH 14.6 % (11.6-13.7)
--- NOTE | 2022-08-25 06:10 | NUR ---
RECEIVED PHONE CALL FROM RIYA IN THE LAB PATIENT WITH TROPONIN OF [phone] MESSAGE SENT TO WITH CRITICAL LAB RESULTS
[2022-08-25 06:29] LABS: CARBON DIOXIDE 22.2 mmol/L (21-32); CREATININE 0.8 mg/dL (0.6-1.3); POTASSIUM 3.2 mmol/L (3.5-5.1)
--- NOTE | 2022-08-25 07:27 | NUR ---
CARE OF PATIENT ENDORSED TO DAY SHIFT (SHAKIRA RN)
[2022-08-25 08:00] VITALS: BP 148/74
[2022-08-25] MEDS: TACROLIMUS 0.5 MG CAP PO SCH ×2 (09:45→21:14)
[2022-08-25] MEDS: MYCOPHENOLATE 250 MG CAP PO SCH ×2 (09:47→21:14)
[2022-08-25] MEDS: PANTOPRAZOLE 40 MG TABEC PO SCH (09:47)
[2022-08-25] MEDS: lisinopriL 5 MG TAB PO SCH (09:47)
[2022-08-25] MEDS: ECOTRIN 81 MG TABEC PO SCH (09:48)
[2022-08-25] MEDS: METOPROLOL 25 MG TAB PO SCH ×2 (09:48→21:14)
[2022-08-25] MEDS: AZITHROMYCIN 250 MG TAB PO SCH (09:48)
[2022-08-25] MEDS: HYDROcodone/APAP 7.5/325 MG 1 TAB PO PRN (09:56)
[2022-08-25 12:00] VITALS: BP 128/87
[2022-08-25] MEDS ORDERED: LOVENOX 1MG/KG Q12H SUBQ SCH (12:20)
[2022-08-25] MEDS: ENOXAPARIN 100 MG/ML SYR SUBQ SCH ×2 (12:22→21:19)
--- NOTE | 2022-08-25 13:12 | NUR ---
DC PLANNING: PATIENT HAS AN ORDER TO TRANSFER TO [facility] FOR CARDIAC CATH FAXED TO [facility]. CM TO FOLLOW Addendum: 08/25/22 at 1727 by Kalie Kenney RN DC PLANNING: CALLED [facility] SPOKE WITH IRIS STATED STILL AWAITING FOR ADMITTING TO REVIEW AND REQUESTING AUTHORIZATION. CALLED ALLIED PHYSICIAN [phone] LEFT A MESSAGE FOR JORGE LUIS COOPER TO FOLLOW
[2022-08-25] MEDS: ONDANSETRON 4 MG/2 ML VIAL IM/IVP PRN (13:29)
[2022-08-25 16:00] VITALS: BP 128/84
[2022-08-25] MEDS ORDERED: DICYCLOMINE HCL LIQUID 20 MG, ALUMINUM HYD/MAG/SIMETHICONE 30 ML, LIDOCAINE VISCOUS 2% ... PO SCH ×3 (18:15)
[2022-08-25] MEDS ORDERED: DICYCLOMINE HCL LIQUID 10 MG/5 ML UDC ONE (18:26)
--- NOTE | 2022-08-25 19:25 | NUR ---
RECEIVED PT ON BED,AAOX4, ABLE TO MAKE NEEDS KNOWN, COMPLAINING OF CHEST PAIN, NO SOB NOTED, WILL MEDICATE PRN, IVF INFUSING WELL, PLAN OF CARE DISCUSSED, PT WITH ORDER FOR TRANSFER TO [facility] FOR CARDIAC CATH, AWAITING CALL BACK FROM HOSPITAL CONTACTED BY ROUTE DELIVERY SUPERVISOR SUCH [facility], [facility] AND [facility], FREQUENT ROUNDS WILL BE MADE, CALL LIGHT WITHIN REACH.
[2022-08-25] MEDS: LORazepam 0.5 MG TAB PO PRN (19:53)
[2022-08-25 20:00] VITALS: BP 120/80
[2022-08-25] MEDS: NACL 0.9% 1,000 ML IV SCH (21:18)
--- NOTE | 2022-08-25 21:18 | NUR ---
PT VOMITED THE CELLCEPT AND PROGRAF PILLS, MEDICATED PRN WITH ZOFRAN IVP, WAITED AFTER 10 MINUTES AND GAVE CELLCEPT AND PROGRAF PILLS, TOLERATED WELL AT THIS TIME, MONITORED CLOSELY.
--- NOTE | 2022-08-25 22:20 | NUR ---
PER [facility]IRE FREEMAN, [facility] DENIED REQUEST FOR TRANSFER FOR CARDIAC CATH, WILL ENDORSE TO AM SHIFT.
[2022-08-26] VITALS: BP 123/84
[2022-08-26] MEDS: HYDROcodone/APAP 7.5/325 MG 1 TAB PO PRN (00:31)
[2022-08-26 04:00] VITALS: BP 123/86
[2022-08-26] MEDS: ONDANSETRON 4 MG/2 ML VIAL IM/IVP PRN ×3 (04:11→20:13)
[2022-08-26] MEDS: MORPHINE SULFATE 2 MG/ML SYR IVP PRN ×4 (04:11→20:14)
--- NOTE | 2022-08-26 04:11 | NUR ---
PT COMPLAINING OF CHEST PAIN AND NAUSEA, VITAL SIGNS STABLE, WHEN MORPHINE IVP IS BEING GIVEN, NOTICED IV SITE IS LEAKING, IV LINE IS PARTIALLY OUT AND LEAKING, NEW IV SITE ESTABLISHED TO LEFT FA #22 WITH GOOD RETURN, MORPHINE IVP AND ZOFRAN IVP GIVEN PRN, RESUMED IVF WITH NS AT 60ML/H, MONITORED CLOSELY.
[2022-08-26 05:19] LABS: BASOPHILS % (AUTO) 0.4 % (0.0-2.0); EOSINOPHILS # (AUTO) 0.1 K/uL (0-0.4); EOSINOPHILS % (AUTO) 1.7 % (0.0-4.0); HEMATOCRIT 34.5 % (36-48); HEMOGLOBIN 11.7 g/dL (12.0-16.0); LYMPHOCYTES # (AUTO) 1.1 K/uL (2.5-16.5); LYMPHOCYTES % (AUTO) 16.8 % (20.5-51.1); MEAN CORPUSCULAR HEMOGLOBIN 30 pg (27-31); MEAN CORPUSCULAR HGB CONC 34 g/dL (33-37); MEAN CORPUSCULAR VOLUME 89.6 fL (80-94); MONOCYTES # (AUTO) 0.9 K/uL (0.8-1.0); MONOCYTES % (AUTO) 14.4 % (1.7-9.3); NEUTROPHILS # (AUTO) 4.3 K/uL (1.8-7.7); NEUTROPHILS % (AUTO) 66.7 % (42.2-75.2); PLATELET COUNT (AUTO) 188 K/uL (140-450); RED BLOOD CELL COUNT(AUTO) 3.85 MIL/uL (4.20-5.40); RED CELL DISTRIBUTION WIDTH 14.6 % (11.6-13.7); WHITE BLOOD COUNT (AUTO) 6.5 K/uL (4.8-10.8)
--- NOTE | 2022-08-26 06:30 | NUR ---
SEEN PT AWAKE ON BED USING HER CELLPHONE, IVF INFUSING WELL, NO SIGNS OF DISTRESS, MONITORED CLOSELY.
[2022-08-26 07:22] LABS: ANION GAP 14.8 (8-16); CARBON DIOXIDE 23.7 mmol/L (21-32); CREATININE 0.9 mg/dL (0.6-1.3); POTASSIUM 3.5 mmol/L (3.5-5.1)
--- NOTE | 2022-08-26 07:32 | NUR ---
PT AWAKE, NO SIGNS OF DISTRESS, REPORT GIVEN TO RICARDO MONTIEL FOR CONTINUITY OF CARE.
--- NOTE | 2022-08-26 07:43 | NUR ---
TOLERATED INCENTIVE SPIROMETRY THERAPY WELL WITHOUT ADVERSE REACTIONS NOTED ENCOURAGED PATIENT TO USE THE INCENTIVE SPIROMETRY EVERY 2 HOURS WHILE AWAKE
[2022-08-26 08:00] VITALS: BP 113/93
[2022-08-26] MEDS: TACROLIMUS 0.5 MG CAP PO SCH ×2 (08:29→20:12)
[2022-08-26] MEDS: ATORVASTATIN 20 MG TAB PO SCH (08:29)
[2022-08-26] MEDS: lisinopriL 5 MG TAB PO SCH (08:30)
[2022-08-26] MEDS: AZITHROMYCIN 250 MG TAB PO SCH (08:30)
[2022-08-26] MEDS: METOPROLOL 25 MG TAB PO SCH ×2 (08:31→20:12)
[2022-08-26] MEDS: PANTOPRAZOLE 40 MG TABEC PO SCH (08:34)
[2022-08-26] MEDS: ECOTRIN 81 MG TABEC PO SCH (08:35)
[2022-08-26] MEDS: ENOXAPARIN 100 MG/ML SYR SUBQ SCH ×2 (08:37→20:13)
[2022-08-26] MEDS: MYCOPHENOLATE 250 MG CAP PO SCH ×2 (09:45→20:11)
[2022-08-26] MEDS: NACL 0.9% 1,000 ML IV SCH (11:12)
[2022-08-26 12:00] VITALS: BP 118/90
[2022-08-26] MEDS ORDERED: LISI5TAB24 PO (13:38)
[2022-08-26] MEDS ORDERED: ASPI-1856 PO (13:38)
[2022-08-26] MEDS ORDERED: AZIT250T11 PO (13:38)
[2022-08-26] MEDS ORDERED: ATOR20TA40 PO (13:38)
[2022-08-26] MEDS ORDERED: LOV100I SUBQ (13:38)
[2022-08-26] MEDS ORDERED: METO25TA PO (13:38)
[2022-08-26] MEDS: LORazepam 0.5 MG TAB PO PRN ×2 (14:28→22:49)
--- NOTE | 2022-08-26 14:47 | NUR ---
FAXED RESULT OF BRETT TO [facility], PER GRADE CHECKER ACCEPTING DR IS ERI VELAZQUEZ, AT THIS TIME, NO BED AVAILABLE. WILL CONTINUE TO MONITOR PATIENT.
[2022-08-26 16:00] VITALS: BP 110/85
--- NOTE | 2022-08-26 19:38 | NUR ---
GET THE REPORT FROM MORNING NURSE, PATIENT IS LYING ON BED, PATIENT IS ALERT ORIENTED X4, ALL FALL PRECAUTION MEASURE ARE IN PLACE, CALL LIGHT IS WITHIN THE REACH, WILL CONTINUE TO MONITOR PATIENT.
[2022-08-26 20:00] VITALS: BP 147/88
--- NOTE | 2022-08-26 20:14 | NUR ---
PATIENT IS LYING ON BED, NO ANY COMPLAIN OF SHORTENS OF BREATH AT THIS TIME, VITAL SIGN IS WITHIN THE NORMAL RANGE, PATIENT IS COMPLAINING OF CHEST PAIN GAVE MORPHINE 2MG IV PRN PER DOCTOR ORDER, PATIENT IS ALSO COMPLAINING OF NAUSEA, GAVE ZOFRAN 4MG IV PRN PER DOCTOR ORDER, ALL OTHER SCHEDULE MEDICATION IS GIVEN PER DOCTOR ORDER, CALL LIGHT IS WITHIN THE REACH, WILL CONTINUE TO MONITOR PATIENT.
--- NOTE | 2022-08-26 22:49 | NUR ---
PATIENT IS COMPLAINING OF ANXIETY ,GAVE ATIVAN 0.5 MG PO PRN PER DOCTOR ORDER, VITAL SIGN IS WITHIN THE NORMAL RANGE, CALL LIGHT IS WITHIN THE REACH, WILL CONTINUE TO MONITOR PATIENT.
[2022-08-27] VITALS: BP 125/80
--- NOTE | 2022-08-27 00:07 | NUR ---
PATIENT IS LYING ON BED, NO ANY COMPLAIN OF PAIN OR SHORTNESS OF BREATH AT THIS TIME,VITAL SIGN IS WITHIN THE NORMAL RANGE, CALL LIGHT IS WITHIN THE REACH, WILL CONTINUE TO MONITOR PATIENT.
[2022-08-27] MEDS: MORPHINE SULFATE 2 MG/ML SYR IVP PRN ×3 (00:33→11:04)
--- NOTE | 2022-08-27 00:35 | NUR ---
PATIENT IS COMPLAINING OF PAIN IN CHEST 6/10, WILL REASSESS PAIN LAVAL IN HOUR , GAVE MORPHINE 2MG IV PRN PER DOCTOR ORDER, VITAL SIGN IS WITHIN THE NORMAL RANGE, CALL LIGHT IS WITHIN THE REACH, WILL CONTINUE TO MONITOR PATIENT.
[2022-08-27] MEDS: NACL 0.9% 1,000 ML IV SCH ×2 (03:34→20:11)
[2022-08-27 04:00] VITALS: BP 110/74
--- NOTE | 2022-08-27 04:28 | NUR ---
VITAL SIGN IS WITHIN THE NORMAL RANGE, ALL SCHEDULE MEDICATION IS GIVEN PER DOCTOR ORDER, NO ANY COMPLAIN OF PAIN OR SHORTNESS OF BREATH AT THIS TIME, CALL LIGHT IS WITHIN THE REACH, WILL CONTINUE TO MONITOR PATIENT.
[2022-08-27] MEDS: ONDANSETRON 4 MG/2 ML VIAL IM/IVP PRN (04:45)
--- NOTE | 2022-08-27 04:47 | NUR ---
PATIENT IS COMPLAINING OF PAIN IN CHEST 6/10, GAVE MORPHINE 2MG IV PRN PER DOCTOR ORDER,WILL REASSESS PAIN LAVAL IN HOUR VITAL SIGN IS WITHIN THE NORMAL RANGE,PATIENT ALSO COMPLAINING OF NAUSEA ,GAVE HER ZOFRAN 4MG IV PRN PER DOCTOR ORDER, CALL LIGHT IS WITHIN THE REACH, WILL CONTINUE TO MONITOR PATIENT.
[2022-08-27 05:54] LABS: BASOPHILS % (AUTO) 0.3 % (0.0-2.0); EOSINOPHILS # (AUTO) 0.1 K/uL (0-0.4); EOSINOPHILS % (AUTO) 2.5 % (0.0-4.0); HEMATOCRIT 35.8 % (36-48); LYMPHOCYTES # (AUTO) 1.1 K/uL (2.5-16.5); LYMPHOCYTES % (AUTO) 22.1 % (20.5-51.1); MEAN CORPUSCULAR HEMOGLOBIN 30 pg (27-31); MEAN CORPUSCULAR HGB CONC 34 g/dL (33-37); MEAN CORPUSCULAR VOLUME 89.7 fL (80-94); MONOCYTES # (AUTO) 0.9 K/uL (0.8-1.0); NEUTROPHILS % (AUTO) 58.2 % (42.2-75.2); PLATELET COUNT (AUTO) 206 K/uL (140-450); RED BLOOD CELL COUNT(AUTO) 3.99 MIL/uL (4.20-5.40); RED CELL DISTRIBUTION WIDTH 14.6 % (11.6-13.7); WHITE BLOOD COUNT (AUTO) 5.2 K/uL (4.8-10.8)
[2022-08-27 06:08] LABS: ANION GAP 12.3 (8-16); CARBON DIOXIDE 27.6 mmol/L (21-32); POTASSIUM 3.9 mmol/L (3.5-5.1)
[2022-08-27 06:51] LABS: MONOCYTES % (AUTO) 16.9 % (1.7-9.3)
--- NOTE | 2022-08-27 07:09 | NUR ---
GAVE THE REPORT TO MORNING NURSE ADZE FOR CONTINUOUS OF CARE, PATIENT IS STABLE.
[2022-08-27 08:00] VITALS: BP 113/82
--- NOTE | 2022-08-27 09:10 | NUR ---
RICARDO SPOKE WITH IJ[facility] AT [facility], NO BEDS AVAILABLE FOR PATIENT TRANSFER FOR HEART CATH. [facility] WILL CALL [facility] WHEN A BED OPENS UP. Addendum: 08/27/22 at 1754 by Irma Ward RN RN TC FROM [facility], NO BEDS YET, SUGGESTED FINDING ANOTHER HOSPITAL FOR PROCEDURE ED CONTINUES TO BE FULL.
[2022-08-27] MEDS: TACROLIMUS 0.5 MG CAP PO SCH ×2 (09:24→20:08)
[2022-08-27] MEDS: MYCOPHENOLATE 250 MG CAP PO SCH ×2 (09:25→20:07)
[2022-08-27] MEDS: METOPROLOL 25 MG TAB PO SCH ×2 (09:26→20:14)
[2022-08-27] MEDS: ATORVASTATIN 20 MG TAB PO SCH (09:26)
[2022-08-27] MEDS: ECOTRIN 81 MG TABEC PO SCH (09:27)
[2022-08-27] MEDS: PANTOPRAZOLE 40 MG TABEC PO SCH (09:27)
[2022-08-27] MEDS: ENOXAPARIN 100 MG/ML SYR SUBQ SCH ×2 (09:30→20:11)
[2022-08-27] MEDS: AZITHROMYCIN 250 MG TAB PO SCH (09:30)
[2022-08-27] MEDS: lisinopriL 5 MG TAB PO SCH (09:30)
[2022-08-27 16:00] VITALS: BP 110/89
--- NOTE | 2022-08-27 19:48 | NUR ---
GOT REPORT FROM AM NURSE ROSELYN, PATIENT IS LYING ON THE BED, PATIENT IS ALERT AND ORIENTED X4, ALL FALL PRECAUTION MEASURES ARE IN PLACE, CALL LIGHT IS WITHIN REACH, WILL CONTINUE TO MONITOR PATIENT.
[2022-08-27 20:00] VITALS: BP 153/95
[2022-08-27] MEDS: HYDROcodone/APAP 7.5/325 MG 1 TAB PO PRN (20:22)
[2022-08-27] MEDS: LORazepam 0.5 MG TAB PO PRN (20:23)
--- NOTE | 2022-08-27 20:33 | NUR ---
PATIENT IS LYING ON THE BED, VITAL SIGNS WITHIN NORMAL RANGE, NO SOB, PATIENT IS COMPLAINING OF PAIN AND ANXIETY, GIVEN PRN MEDS, ALL SCHEDULED MEDICATIONS GIVEN ORDERED, CALL LIGHT WITHIN REACH, WILL CONTINUE TO MONITOR.
--- NOTE | 2022-08-27 22:40 | NUR ---
PATIENT COMPLAINS OF ITCHING. MESSAGED SLOT KEY PERSON DR. JO DR RESPONDED WITH NEW ORDER BENADRYL 12.5MG PO ONE TIME ONLY, ORDER PLACED AND WILL CARRIED OUT.
--- NOTE | 2022-08-27 23:44 | NUR ---
PATIENT IS ACCEPTED IN [facility]. DR. OSORIO NOTIFIED.
[2022-08-27 23:54] VITALS: BP 160/94
[2022-08-28] VITALS: BP 160/94
[2022-08-28] MEDS: MORPHINE SULFATE 2 MG/ML SYR IVP PRN (00:08)
--- NOTE | 2022-08-28 00:09 | NUR ---
PATIENT IS COMPLAINING OF CHEST PAIN , MEDICATED WITH PRN MEDICATION , VITAL SIGN IS WITHIN THE NORMAL RANGE, CALL LIGHT IS WITHIN THE REACH, WILL CONTINUE TO MONITOR PATIENT.
--- NOTE | 2022-08-28 00:25 | NUR ---
REPORT GIVEN TO [facility] TELE STATION 2 ROOM 331 BED A NURSE RASHAD ISBELL IS 0100. WILL CONTINUE TO MONITOR PATIENT.
--- NOTE | 2022-08-28 02:48 | NUR ---
PATIENT IS PICKED UP BY [facility], GAVE THE REPORT TO JL , PATIENT IS STABLE.
== END 2022-08-28 02:40 | disposition short-term general hospital (02) | DRG 871 ==
LOC: MED 14:32 → MTU 16:39 → MMU 08-27 18:00
PROVIDERS: ADMIT Family Medicine; ATTEND Family Medicine
DX: A41.9 Sepsis, unspecified organism (principal); I21.4 Non-ST elevation (NSTEMI) myocardial infarction; J18.9 Pneumonia, unspecified organism; E87.20 Acidosis, unspecified; Z94.0 Kidney transplant status; K21.9 Gastro-esophageal reflux disease without esophagitis; E83.51 Hypocalcemia; E83.42 Hypomagnesemia; E86.0 Dehydration; F41.9 Anxiety disorder, unspecified; D64.9 Anemia, unspecified; I25.10 Atherosclerotic heart disease of native coronary artery without angina pectoris; M32.9 Systemic lupus erythematosus, unspecified; Z20.822 Contact with and (suspected) exposure to COVID-19; Z91.041 Radiographic dye allergy status; Z83.3 Family history of diabetes mellitus; Z90.710 Acquired absence of both cervix and uterus
CPT/HCPCS: 36415; 71045; 80048; 80053; 80305; 81003; 82150; 83036; 83690; 83735; 83880; 84100; 84436; 84439; 84443; 84479; 84484; 85025; 85610; 85730; 87081; 93005; 94010; 96361; 96374; 96376; 99285; J0696; J1644; J1650; J2270; J2405; J3475; J7060; J7507; J7517; Q0163

== ENCOUNTER 2023-07-22 20:45 | Emergency (ER) | payer BC, MEDICAID ==
[~2023-07-22] VITALS: Ht 162.6 cm; Wt 106.1 kg
[~2023-07-22 20:45] MED LIST changes: +ACET-10509 PO; -AMIT25TA39 PO; -AMLO5TAB PO; +ASPI-1856 PO; +ATOR20TA40 PO; +AZIT250T11 PO; +CYCL-711 PO; +DICL100G32 TP; +LISI5TAB24 PO; -LORA-476 PO; +LOV100I SUBQ; +METO25TA PO; +OMEP40EC24 PO; -PANT40EC PO; -PRED5TAB7 PO; -RANI150T8 PO
[2023-07-22 20:49] VITALS: BP 121/82; PULSE 86; RESP 16; TEMP 97.1; O2SAT 97
[2023-07-22 21:37] LABS: BASOPHILS % (AUTO) 0.5 % (0.0-2.0); EOSINOPHILS # (AUTO) 0.1 K/uL (0-0.4); HEMATOCRIT 37.2 % (36-48); HEMOGLOBIN 12.3 g/dL (12.0-16.0); LYMPHOCYTES # (AUTO) 1.6 K/uL (2.5-16.5); LYMPHOCYTES % (AUTO) 16.1 % (20.5-51.1); MEAN CORPUSCULAR HEMOGLOBIN 30 pg (27-31); MEAN CORPUSCULAR HGB CONC 33 g/dL (33-37); MEAN CORPUSCULAR VOLUME 90.1 fL (80-94); MONOCYTES # (AUTO) 1.4 K/uL (0.8-1.0); MONOCYTES % (AUTO) 13.8 % (1.7-9.3); NEUTROPHILS # (AUTO) 6.7 K/uL (1.8-7.7); NEUTROPHILS % (AUTO) 68.6 % (42.2-75.2); PLATELET COUNT (AUTO) 238 K/uL (140-450); RED BLOOD CELL COUNT(AUTO) 4.13 MIL/uL (4.20-5.40); RED CELL DISTRIBUTION WIDTH 14.8 % (11.6-13.7); WHITE BLOOD COUNT (AUTO) 9.8 K/uL (4.8-10.8)
[2023-07-22 21:52] LABS: INR 2.65 (0.8-1.2); PARTIAL THROMBOPLASTIN TIME 40.9 secs (22-35.6); PROTHROMBIN TIME 26.6 secs (10.8-13.4)
[2023-07-22 21:55] LABS: ALBUMIN 3.3 g/dL (3.4-5.0); ANION GAP 13.5 (8-16); CALCIUM 8.9 mg/dL (8.5-10.1); CARBON DIOXIDE 23.3 mmol/L (21-32); POTASSIUM 3.8 mmol/L (3.5-5.1); TOTAL BILIRUBIN 0.2 mg/dL (0.0-1.0); TOTAL PROTEIN, SERUM 7.3 g/dL (6.4-8.2)
[2023-07-22] MEDS ORDERED: MORPHINE SULFATE 4 MG/ML SYR IVP ONE (22:45)
[2023-07-22] MEDS ORDERED: FAMOTIDINE 20 MG/2 ML VIAL IVP ONE (22:45)
[2023-07-22] MEDS ORDERED: ONDANSETRON 4 MG/2 ML VIAL IVP ONE (22:45)
[2023-07-22] MEDS ORDERED: methylPREDNISolone SS 125 MG/2 ML VIAL IVP ONE (22:55)
[2023-07-22] MEDS ORDERED: diphenhydrAMINE 50 MG/ML VIAL IVP ONE (22:55)
[2023-07-22] MEDS ORDERED: NACL 0.9% 1,000 ML IV ONE (23:15)
[2023-07-23 00:03] VITALS: BP 118/79; PULSE 69; RESP 19; TEMP 97.8; O2SAT 99
[2023-07-23] MEDS ORDERED: diphenhydrAMINE 50 MG/ML VIAL IVP ONE ×2 (00:25→00:45)
[2023-07-23] MEDS ORDERED: HYDROcodone/APAP 5/325 MG 1 TAB TAB PO ONE (02:25)
[2023-07-23] MEDS ORDERED: FAMO-92 PO (02:47)
[2023-07-23] MEDS ORDERED: ACET-8905 PO (02:47)
[2023-07-23] MEDS ORDERED: DIPH25TA53 PO (02:49)
== END 2023-07-23 03:22 | disposition home or self-care (01) ==
LOC: MED 20:45
DX: R07.9 Chest pain, unspecified (principal); I12.9 Hypertensive chronic kidney disease with stage 1 through stage 4 chronic kidney disease, or unspecified chronic kidney disease; E11.22 Type 2 diabetes mellitus with diabetic chronic kidney disease; N18.9 Chronic kidney disease, unspecified; Z79.4 Long term (current) use of insulin; Z79.899 Other long term (current) drug therapy
CPT/HCPCS: 36415; 71045; 71275; 80053; 83880; 84484; 85025; 85610; 85730; 96361; 96374; 96375; 96376; 99285; J1200; J2270; J2405; J2930; J3490; J7030; Q0092; Q0163; Q9967

== ENCOUNTER 2023-09-03 11:07 | Emergency (ER) | payer BC, MEDICAID ==
[~2023-09-03] VITALS: Ht 162.6 cm; Wt 63.0 kg
[~2023-09-03 11:07] MED LIST changes: +ACET-8905 PO; +DIPH25TA53 PO; +FAMO-92 PO
[2023-09-03 11:49] VITALS: BP 134/96; PULSE 76; RESP 16; TEMP 98.2; O2SAT 99
[2023-09-03] MEDS ORDERED: ONDANSETRON 4 MG/2 ML VIAL IVP ONE (12:30)
[2023-09-03 12:43] VITALS: O2SAT 99
[2023-09-03] MEDS ORDERED: MORPHINE SULFATE 4 MG/ML SYR IVP ONE (13:10)
[2023-09-03 13:39] LABS: APPEARANCE,URINE CLEAR (CLEAR); BILIRUBIN,URINE NEGATIVE (NEGATIVE); BLOOD, URINE NEGATIVE (NEGATIVE); COLOR,URINE YELLOW (YELLOW); LEUKOCYTE ESTERASE ,URINE NEGATIVE (NEGATIVE); NITRITE, URINE NEGATIVE (NEGATIVE); PH,URINE 5.5 (5.0-9.0); PROTEIN,URINE NEGATIVE (NEGATIVE); UGLUCOSE NEGATIVE (NEGATIVE); UROBILINOGEN,URINE 0.2 EU/dL (0.2 - 1)
[2023-09-03 13:40] LABS: BASOPHILS # (AUTO) 0.1 K/uL (0.00-0.22); BASOPHILS % (AUTO) 0.7 % (0.0-2.0); EOSINOPHILS # (AUTO) 0.1 K/uL (0-0.4); EOSINOPHILS % (AUTO) 1.1 % (0.0-4.0); HEMATOCRIT 39.2 % (36-48); HEMOGLOBIN 13.1 g/dL (12.0-16.0); LYMPHOCYTES % (AUTO) 26.3 % (20.5-51.1); MEAN CORPUSCULAR HEMOGLOBIN 30 pg (27-31); MEAN CORPUSCULAR HGB CONC 34 g/dL (33-37); MEAN CORPUSCULAR VOLUME 89.4 fL (80-94); MONOCYTES # (AUTO) 0.9 K/uL (0.8-1.0); MONOCYTES % (AUTO) 11.6 % (1.7-9.3); NEUTROPHILS # (AUTO) 4.7 K/uL (1.8-7.7); NEUTROPHILS % (AUTO) 60.3 % (42.2-75.2); PLATELET COUNT (AUTO) 279 K/uL (140-450); RED BLOOD CELL COUNT(AUTO) 4.38 MIL/uL (4.20-5.40); RED CELL DISTRIBUTION WIDTH 14.8 % (11.6-13.7); WHITE BLOOD COUNT (AUTO) 7.7 K/uL (4.8-10.8)
[2023-09-03 13:56] LABS: ALBUMIN 3.7 g/dL (3.4-5.0); ANION GAP 13.6 (8-16); CALCIUM 9.1 mg/dL (8.5-10.1); CARBON DIOXIDE 25.1 mmol/L (21-32); CREATININE 0.8 mg/dL (0.6-1.3); INR 3.06 (0.8-1.2); PARTIAL THROMBOPLASTIN TIME 44.8 secs (22-35.6); POTASSIUM 3.7 mmol/L (3.5-5.1); PROTHROMBIN TIME 30.5 secs (10.8-13.4); TOTAL BILIRUBIN 0.3 mg/dL (0.0-1.0); TOTAL PROTEIN, SERUM 8.5 g/dL (6.4-8.2)
[2023-09-03] MEDS ORDERED: ACET-8905 PO (14:59)
[2023-09-03] MEDS ORDERED: ONDA8TAB87 PO (14:59)
[2023-09-03 15:13] VITALS: BP 122/85; PULSE 76; RESP 16; TEMP 98.2; O2SAT 99
== END 2023-09-03 15:14 | disposition home or self-care (01) ==
LOC: MED 11:07
DX: R19.04 Left lower quadrant abdominal swelling, mass and lump (principal); I10 Essential (primary) hypertension; Z87.448 Personal history of other diseases of urinary system; Z90.49 Acquired absence of other specified parts of digestive tract; Z90.710 Acquired absence of both cervix and uterus; Z98.890 Other specified postprocedural states; Z94.0 Kidney transplant status; Z86.718 Personal history of other venous thrombosis and embolism; Z79.899 Other long term (current) drug therapy; Z79.82 Long term (current) use of aspirin; Z79.2 Long term (current) use of antibiotics; Z88.8 Allergy status to other drugs, medicaments and biological substances
CPT/HCPCS: 36415; 74176; 80053; 81003; 83690; 85025; 85610; 85730; 96374; 96375; 99285; J2270; J2405